=== PATIENT | female | born 1995 | race Caucasian/White ===

== ENCOUNTER → 2020-12-22 14:22 | Outpatient (BNVA) | payer SELFPAY | PROVIDERS: Family Provider Family Medicine; Visit Provider Nurse Practitioner | DX: Z20.2 Contact with and (suspected) exposure to infections with a predominantly sexual mode of transmission (principal) | CPT/HCPCS: 87491; 87591 ==

== ENCOUNTER 2021-07-21 16:57 | Emergency (ER) | payer MEDICAID, SELFPAY ==
[2021-07-21 17:05] VITALS: BP 100/65; PULSE 96; RESP 16; TEMP 36.4; O2SAT 94; BMI 34.1
--- NOTE | 2021-07-21 17:15 | ED_ITS ---
HPI - General Adult General: Chief complaint: General Medical Stated complaint: cough, runny nose, chest discomfort , sob Time Seen by Provider: 07/21/21 17:14 History of Present Illness: Ms. Diaz is a 26-year-old with history of tobaccoism who is currently with estimated LMP mid May who presents to the emergency department due to sore throat and respiratory symptoms. She endorses symptom onset approximately 1 week ago. She has initially stopped nasal congestion however now has purulent green drainage and sinus pressure. Yesterday she had sore throat which is moderate in intensity. No difficulty swallowing or difficulty tolerating oral secretions. Intensity symptoms is moderate. Course has worsened. Does have a history of frequent strep throat with season changes. No other specific changes in health, exacerbating, or alleviating factors identified.. Regarding her she has an appointment scheduled for outpatient initial OB visit. Onset (ago): week(s) Severity: moderate Review of Systems General: Reports: 10 or more systems reviewed and unremarkable except in HPI and below ENMT: Denies: uvular edema PFSH ED PFSH: Medical History No significant past medical history Social History Smoking and tobacco status: current every day smoker Female Reproductive History: Date of last menstrual period: 06/02/21 Physical Exam Const: COMMON NORMALS: alert GENERAL APPEARANCE: cooperative and well developed HENMT: COMMON NORMALS: normocephalic and atraumatic HEAD & SCALP: normocephalic and atraumatic THROAT: uvula midline, abnormal tonsil bilateral hypertrophy 2+ and posterior oropharynx abnormal erythema; no uvular edema Eye: COMMON NORMALS: conjunctivae normal CONJUNCTIVA: Yes conjunctivae normal SCLERA: sclerae normal Neck/C-Spine: COMMON NORMALS: supple GENERAL: Yes trachea midline Resp: COMMON NORMALS: normal respiratory effort and clear to auscultation michel aterally EFFORT & INSPECTION: Yes able to speak in complete sentences AUSCULTATION: clear to auscultation bilaterally Cardio: COMMON NORMALS: regular rate and regular rhythm RATE: regular rate RHYTHM: regular rhythm GI: COMMON NORMALS: Soft to palpation PALPATION: Yes Soft to palpation and No Tenderness to palpation present (GI) PERCUSSION: normal to percussion Extremity: GENERAL: Yes normal exam except as noted and No edema Neuro: COMMON NORMALS: moves all extremities SENSORIUM/ORIENTATION: Yes alert and No Orientation impaired Psych: COMMON NORMALS: mental status grossly normal and Normal thought process present THOUGHT PROCESS: Normal thought process present Course ED course: - Patient was seen and evaluated by me at bedside -Vital signs obtained - Initial evaluation notable for exam as above, posterior pharynx erythema and tonsillar hypertrophy without other significant abnormality. No evidence of BANKRUPTCY LEGAL ASSISTANT or his tonsils. Patient tolerated oral secretions well and no evidence of airway compromise - Labs personally interpreted by me - Labs notable for negative rapid strep - Upon serial reexamination after treatment the patient was similar - Based on patient history, evaluation, and testing as interpreted the most likely cause of the patient's condition is sinusitis, given duration of symptoms consideration for bacterial. - The results of ED evaluation were discussed with the patient including prescriptions and/or symptomatic cares (if applicable) including appropriate and responsible use, followup plan, and return precautions. The patient verbalized understanding and felt safe for discharge. - Patient discharged in satisfactory condition. Note: Click bubbles or prepopulated meneses in note writing are used for assistance with data collection and billing and are inherently more limited than narrative and other text portions of this note. Please use narrative for additional clinical history and defer to narrative/free test for any case of contradictory information. If information appears in only free text or click bubble it should be considered present or absent as reported. Please contact note greeting card writer for clarifications of clinical information or contradictory information. MDM is a brief summary, contradictory or erroneous seeming information should be clarified and full note should be reviewed. Vital Signs: Vital signs: Vital Signs Temperature 97.6 F 07/21/21 17:05 Pulse Rate 76 07/21/21 18:45 Respiratory Rate 16 07/21/21 18:45 Blood Pressure 106/67 07/21/21 18:45 Pulse Oximetry 95 07/21/21 18:45 MDM - General Adult Medical Decision Making 26-year-old lady presenting with upper respiratory symptoms. Patient is nontoxic in appearance. Satisfactory for outpatient management. Medical Records I reviewed the patient's medical records. Lab Data I reviewed the patient's lab results. Laboratory Results Group A Strep Rapid Negative (Negative) 07/21/21 18:15 Discharge Plan Discharge Patient Disposition: Home Clinical Impression: Acute bacterial sinusitis Condition: Stable Prescriptions: New amoxicillin-pot clavulanate 875-125 mg tablet 1 tab PO BID Qty: 14 0RF No Action ceftriaxone 500 mg recon soln 500 mg IM ONCE Qty: 1 0RF doxycycline hyclate 100 mg capsule 100 mg PO BID 10 Days Qty: 20 0RF Discharge Orders: Discharge ED (Routine); Ordered 07/21/21 Ordered By: Reid Rajput Discharge Diet: Usual diet Discharge Activity: Increase activity as tolerated Patient Instructions: Sinusitis (ED) Activity Restrictions/Additional Instructions: Thank you for visiting the emergency department. You were seen and evaluated for likely sinusitis. You will be given a prescription for antibiotics. Please follow-up with your primary care provider and attend your appointment for initial obstetrics. Return to the emergency department for anything that you are concerned about a feel needs emergency department evaluation. Coding Level of Care Code ED Bulk Intake Worker for Brett Soto Exam Comprehensive
[2021-07-21 18:26] VITALS: BP 106/67; PULSE 74; RESP 16; O2SAT 95
[2021-07-21 18:30] LABS: Rapid Strep A Test Negative (Negative)
[2021-07-21 18:45] VITALS: BP 106/67; PULSE 76; RESP 16; O2SAT 95
== END 2021-07-21 18:46 | disposition home or self-care (01) ==
PROVIDERS: Emergency Provider Emergency Medicine
DX: J01.90 Acute sinusitis, unspecified (principal); B96.89 Other specified bacterial agents as the cause of diseases classified elsewhere; J02.9 Acute pharyngitis, unspecified; F17.200 Nicotine dependence, unspecified, uncomplicated
CPT/HCPCS: 87081; 87880; 99282

== ENCOUNTER 2021-08-03 12:48 | Outpatient (CLI) | payer MEDICAID, SELFPAY ==
--- NOTE | 2021-08-03 13:01 | US_ITS ---
WS: [id number] EARLY OBSTETRICAL ULTRASOUND (<14 WEEKS). HISTORY: SUPERVISION NORMAL , 1ST TRIMESTER COMPARISON: None available. Single intrauterine gestational sac is identified. Cardiac activity at 157 BPM. Pentress-rump length chiara sures 1.3 cm which corresponds to a gestation of 7w3d. Normal-appearing yolk sac and amnion demonstra clive. No subchorionic hemorrhage. No free fluid. Neither ovary identified. No free fluid. US/US OB <=14 wk fetus w transvag IMPRESSION: 1. Single intrauterine gestation of 7 weeks 3 days with an EDC of 03/19/2022. 2. Normal cardiac activity.
== END 2021-08-03 12:49 | disposition home or self-care (01) ==
PROVIDERS: PCP Family Medicine; Visit Provider Family Medicine
DX: Z34.91 Encounter for supervision of normal pregnancy, unspecified, first trimester (principal)
CPT/HCPCS: 76801; 76817

== ENCOUNTER 2021-08-15 20:02 | Emergency (ER) | payer MEDICAID, SELFPAY ==
[2021-08-15 20:20] VITALS: BP 95/66; PULSE 83; RESP 18; TEMP 37.1; O2SAT 98; BMI 34.1
--- NOTE | 2021-08-15 21:09 | ED_ITS ---
Documented by User: Surya Huff MD 08/15/21 22:56 HPI - Abdominal Pain General: Chief Complaint: Abdominal Pain Stated Complaint: abd pain 9 weekd Time Seen by Provider: 08/15/21 21:03 History of Present Illness: 26-year-old G2, P1 at 9 weeks gestation presents due to abdominal pain. States this started earlier today. Describes diffuse a bdominal achiness and cramping. Denies any pelvic discharge or bleeding. Denies dysuria. Denies nausea vomiting diarrhea constipation. Reports earlier she had a mild headache but this is now gone away. Denies any loss of consciousness. Denies any neck pain fever or rash. Denies any focal weakness numbness or tingling. Related Data: Date of Last Menstrual Period: 06/02/21 Review of Systems Narrative: - CONSTITUTIONAL: Denies weight loss, fever and chills. - HEENT: Denies changes in vision and hearing. - RESPIRATORY: Denies SOB and cough. - CV: Denies palpitations and CP. - GI: As above - : Denies dysuria and urinary frequency. - MSK: Denies myalgia and joint pain. - SKIN: Denies rash and pruritus. - NEUROLOGICAL: As above - PSYCHIATRIC: Denies suicidal ideation PFSH ED PFSH: Medical History No significant past medical history Social History Smoking and tobacco status: current every day smoker Female Reproductive History: Date of last menstrual period: 06/02/21 Physical Exam Narrative: EXAM NARRATIVE: - GENERAL: Alert and oriented x 3. No acute distress. Well-nourished. - EYES: EOMI. Anicteric. - HENT: Atraumatic, no C-spine tenderness. Moist mucous membranes. No scleral icterus. No cervical lymphadenopathy. - LUNGS: Clear to auscultation bilaterally. No accessory muscle use. Equal lung sounds bilaterally. No respiratory distress. - CARDIOVASCULAR: Regular rate and rhythm. No murmur. No JVD. - ABDOMEN: Soft, no appreciable tenderness and non-distended. Negative CVA tenderness bilaterally, no rebound or guarding, negative Wong sign. No palpable masses. - EXTREMITIES: No edema. Non-tender. - SKIN: No rashes or lesions. Warm. - NEUROLOGIC: GCS 15. No meningismus or focal neurological deficits. CN II-XII grossly intact. - PSYCHIATRIC: Cooperative. Appropriate mood and affect. Course Vital Signs: Vital signs: Vital Signs Temperature 98.8 F 08/15/21 20:20 Pulse Rate 83 08/15/21 20:20 Respiratory Rate 18 08/15/21 20:20 Blood Pressure 95/66 08/15/21 20:20 Pulse Oximetry 98 08/15/21 20:20 MDM - Abdominal Pain Medical Decision Making 26-year-old at 9 weeks gestation presents due to abdominal pain. Does complain that she had a headache earlier today but is now resolved. She does not have any meningismus or focal neurologic findings. This would be very early in to be caused by preeclampsia. She has not had seizures. This time do not believe advanced imaging is required. Lab work is unremarkable except for urinalysis with many squamous cells +2 bacteria. Prescription for Keflex provided. Patient is Rh+ and therefore no RhoGAM is required. Ultrasound is c urrently pending. Patient signed out to Dr. Garcia. Lab Data : 08/15/21 21:12 08/15/21 21:12 Labs/Radiology: Radiology Impressions Ultrasound 08/15/21 21:09 IMPRESSION: 1. Single live intrauterine gestation. 2. No acute abnormality. 3. biometry relatively concordant reported LMP. Laboratory Results WBC 5.9 10^3/uL (4.0-10.0) 08/15/21 21:12 RBC 4.50 10^6/uL (4.1-5.3) 08/15/21 21:12 Hgb 13.3 g/dL (11.5-15.3) 08/15/21 21:12 Hct 38.5 % (37.0-47.0) 08/15/21 21:12 MCV 85.6 fl (81-99) 08/15/21 21:12 MCH 29.6 pg (28.0-34.0) 08/15/21 21:12 MCHC 34.5 g/dL (30.0-36.0) 08/15/21 21:12 RDW 12.4 % (12.1-15.1) 08/15/21 21:12 Plt Count 205 10^3/cmm (130-400) 08/15/21 21:12 MPV 10.1 fL (7.4-10.4) 08/15/21 21:12 Neut % (Auto) 85.4 % 08/15/21 21:12 Lymph % (Auto) 7.1 % 08/15/21 21:12 [place] % (Auto) 6.3 % 08/15/21 21:12 Eos % (Auto) 0.7 % 08/15/21 21:12 Baso % (Auto) 0.3 % 08/15/21 21:12 Neut # (Auto) 5.04 10^3/uL (1.8-7.7) 08/15/21 21:12 Lymph # (Auto) 0.4 10^3/uL (0.8-4.8) L 08/15/21 21:12 [place] # (Auto) 0.4 10^3/uL (0.2-0.9) 08/15/21 21:12 Eos # (Auto) 0.0 10^3/uL (0.0-0.8) 08/15/21 21:12 Baso # (Auto) 0.0 10^3/uL (0.0-0.1) 08/15/21 21:12 Nucleated RBC % (auto) 0 % 08/15/21 21:12 Nucleated RBCs # 0.0 /100WBC 08/15/21 21:12 Sodium 134 mmol/L (136-145) L 08/15/21 21:12 Potassium 3.8 mmol/L (3.5-5.1) 08/15/21 21:12 Chloride 101 mmol/L (98-107) 08/15/21 21:12 Carbon Dioxide 20 mmol/L (22-29) L 08/15/21 21:12 Anion Gap 16.8 (5-19) 08/15/21 21:12 BUN 11 mg/dL (6-20) 08/15/21 21:12 Creatinine 0.4 mg/dL (0.5-0.9) L 08/15/21 21:12 GFR Calculation 196.1 mL/min (90-130) H 08/15/21 21:12 Glucose 89 mg/dL (65-115) 08/15/21 21:12 Calculated Osmolality 277 mOsm/kg (285-295) L 08/15/21 21:12 Calcium 9.2 mg/dL (8.5-10.5) 08/15/21 21:12 Total Bilirubin 0.2 mg/dL (0.15-1.2) 08/15/21 21:12 AST 16 U/L (0-32) 08/15/21 21:12 ALT 12 U/L (0-33) 08/15/21 21:12 Alkaline Phosphatase 62 IU/L (35-105) 08/15/21 21:12 Total Protein 7.5 g/dL (6.6-8.7) 08/15/21 21:12 Albumin 4.3 g/dL (3.5-5.2) 08/15/21 21:12 Globulin 3.2 g/dL (1.3-4.6) 08/15/21 21:12 Lipase 20 U/L (13-60) 08/15/21 21:12 Ser , Semi-Qnt 57441.00 mIU/mL 08/15/21 21:12 Urine Color Yellow (Yellow) 08/15/21 22:15 Urine Appearance Turbid (CLEAR) 08/15/21 22:15 Urine pH 5 (5-7) 08/15/21 22:15 Ur Specific Nelson 1.030 (1.005-1.030) 08/15/21 22:15 Urine Protein Neg (Negative) 08/15/21 22:15 Urine Glucose (UA) Norm (Normal) 08/15/21 22:15 Urine Ketones Negative (Negative) 08/15/21 22:15 Urine Blood Neg (Negative) 08/15/21 22:15 Urine Nitrate Negative (Negative) 08/15/21 22:15 Urine Bilirubin Neg (Negative) 08/15/21 22:15 Urine Urobilinogen Norm mg/dL (Negative) 08/15/21 22:15 Ur Leukocyte Esterase Negative (Negative) 08/15/21 22:15 Urine RBC 0-4 /hpf (0-2) H 08/15/21 22:15 Urine WBC 0-4 /hpf (0-5) H 08/15/21 22:15 Ur Squamous Epith Cells 55-80 /hpf (0-5) H 08/15/21 22:15 Amorphous Sediment Not Reportable 08/15/21 22:15 Urine Bacteria 2+ /hpf (NONE) H 08/15/21 22:15 Urine Mucus 2+ /hpf 08/15/21 22:15 Rho(D) Type Positive 08/15/21 21:12 Discharge Plan Discharge Patient Disposition: Home Clinical Impression: Abdominal pain affecting , UTI (urinary tract infection) Condition: Stable Prescriptions: New cephalexin 500 mg tablet 500 mg PO BID 7 Days Qty: 14 0RF No Action ceftriaxone 500 mg recon soln 500 mg IM ONCE Qty: 1 0RF doxycycline hyclate 100 mg capsule 100 mg PO BID 10 Days Qty: 20 0RF amoxicillin-pot clavulanate 875-125 mg tablet 1 tab PO BID Qty: 14 0RF Discharge Orders: Discharge ED (Routine); Ordered 08/15/21 Ordered By: Surya Huff Referrals: Monica Campo DO [Primary Care Provider] - 1-3 days Discharge Diet: Advance as tolerated Discharge Activity: Resume usual activity Patient Instructions: Urinary Tract Infection in Women (ED), Abdominal Pain (ED) Coding Level of Care Code ED Fiber Designer for Chg Fwd Documented by User: Nicolas Vogel MD 08/15/21 23:05 HPI - Abdominal Pain General: Chief Complaint: Abdominal Pain Stated Complaint: abd pain 9 weekd Time Seen by Provider: 08/15/21 21:03 [facility] ED PFSH: Medical History No significant past medical history Social History Smoking and tobacco status: current every day smoker Course Vital Signs: Vital signs: Vital Signs Temperature 98.8 F 08/15/21 20:20 Pulse Rate 83 08/15/21 20:20 Respiratory Rate 18 08/15/21 20:20 Blood Pressure 95/66 08/15/21 20:20 Pulse Oximetry 98 08/15/21 20:20 MDM - Abdominal Pain Medical Decision Making 26-year-old at 9 weeks gestation presents due to abdominal pain. Does complain that she had a headache earlier today but is now resolved. She does not have any meningismus or focal neurologic findings. This would be very early in to be caused by preeclampsia. She has not had seizures. This time do not believe advanced imaging is required. Lab work is unremarkable except for urinalysis with many squamous cells +2 bacteria. Prescription for Keflex provided. Patient is Rh+ and therefore no RhoGAM is required. Ultrasound is currently pending. Patient signed out to Dr. Vogel. Patient's ultrasound here shows no acute abnormalities we will treat for UTI she is to follow-up with ob and return if worsening Lab Data : 08/15/21 21:12 08/15/21 21:12 Labs/Radiology: Radiology Impressions Ultrasound 08/15/21 21:09 IMPRESSION: 1. Single live intrauterine gestation. 2. No acute abnormality. 3. biometry relatively concordant reported LMP. Laboratory Results WBC 5.9 10^3/uL (4.0-10.0) 08/15/21 21:12 RBC 4.50 10^6/uL (4.1-5.3) 08/15/21 21:12 Hgb 13.3 g/dL (11.5-15.3) 08/15/21 21:12 Hct 38.5 % (37.0-47.0) 08/15/21 21:12 MCV 85.6 fl (81-99) 08/15/21 21:12 MCH 29.6 pg (28.0-34.0) 08/15/21 21:12 MCHC 34.5 g/dL (30.0-36.0) 08/15/21 21:12 RDW 12.4 % (12.1-15.1) 08/15/21 21:12 Plt Count 205 10^3/cmm (130-400) 08/15/21 21:12 MPV 10.1 fL (7.4-10.4) 08/15/21 21:12 Neut % (Auto) 85.4 % 08/15/21 21:12 Lymph % (Auto) 7.1 % 08/15/21 21:12 [place] % (Auto) 6.3 % 08/15/21 21:12 Eos % (Auto) 0.7 % 08/15/21 21:12 Baso % (Auto) 0.3 % 08/15/21 21:12 Neut # (Auto) 5.04 10^3/uL (1.8-7.7) 08/15/21 21:12 Lymph # (Auto) 0.4 10^3/uL (0.8-4.8) L 08/15/21 21:12 [place] # (Auto) 0.4 10^3/uL (0.2-0.9) 08/15/21 21:12 Eos # (Auto) 0.0 10^3/uL (0.0-0.8) 08/15/21 21:12 Baso # (Auto) 0.0 10^3/uL (0.0-0.1) 08/15/21 21:12 Nucleated RBC % (auto) 0 % 08/15/21 21:12 Nucleated RBCs # 0.0 /100WBC 08/15/21 21:12 Sodium 134 mmol/L (136-145) L 08/15/21 21:12 Potassium 3.8 mmol/L (3.5-5.1) 08/15/21 21:12 Chloride 101 mmol/L (98-107) 08/15/21 21:12 Carbon Dioxide 20 mmol/L (22-29) L 08/15/21 21:12 Anion Gap 16.8 (5-19) 08/15/21 21:12 BUN 11 mg/dL (6-20) 08/15/21 21:12 Creatinine 0.4 mg/dL (0.5-0.9) L 08/15/21 21:12 GFR Calculation 196.1 mL/min (90-130) H 08/15/21 21:12 Glucose 89 mg/dL (65-115) 08/15/21 21:12 Calculated Osmolality 277 mOsm/kg (285-295) L 08/15/21 21:12 Calcium 9.2 mg/dL (8.5-10.5) 08/15/21 21:12 Total Bilirubin 0.2 mg/dL (0.15-1.2) 08/15/21 21:12 AST 16 U/L (0-32) 08/15/21 21:12 ALT 12 U/L (0-33) 08/15/21 21:12 Alkaline Phosphatase 62 IU/L (35-105) 08/15/21 21:12 Total Protein 7.5 g/dL (6.6-8.7) 08/15/21 21:12 Albumin 4.3 g/dL (3.5-5.2) 08/15/21 21:12 Globulin 3.2 g/dL (1.3-4.6) 08/15/21 21:12 Lipase 20 U/L (13-60) 08/15/21 21:12 Ser , Semi-Qnt 02140.00 mIU/mL 08/15/21 21:12 Urine Color Yellow (Yellow) 08/15/21 22:15 Urine Appearance Turbid (CLEAR) 08/15/21 22:15 Urine pH 5 (5-7) 08/15/21 22:15 Ur Specific Nelson 1.030 (1.005-1.030) 08/15/21 22:15 Urine Protein Neg (Negative) 08/15/21 22:15 Urine Glucose (UA) Norm (Normal) 08/15/21 22:15 Urine Ketones Negative (Negative) 08/15/21 22:15 Urine Blood Neg (Negative) 08/15/21 22:15 Urine Nitrate Negative (Negative) 08/15/21 22:15 Urine Bilirubin Neg (Negative) 08/15/21 22:15 Urine Urobilinogen Norm mg/dL (Negative) 08/15/21 22:15 Ur Leukocyte Esterase Negative (Negative) 08/15/21 22:15 Urine RBC 0-4 /hpf (0-2) H 08/15/21 22:15 Urine WBC 0-4 /hpf (0-5) H 08/15/21 22:15 Ur Squamous Epith Cells 55-80 /hpf (0-5) H 08/15/21 22:15 Amorphous Sediment Not Reportable 08/15/21 22:15 Urine Bacteria 2+ /hpf (NONE) H 08/15/21 22:15 Urine Mucus 2+ /hpf 08/15/21 22:15 Rho(D) Type Positive 08/15/21 21:12 Discharge Plan Discharge Patient Disposition: Home Clinical Impression: Abdominal pain affecting , UTI (urinary tract infection) Condition: Stable Prescriptions: New cephalexin 500 mg tablet 500 mg PO BID 7 Days Qty: 14 0RF No Action ceftriaxone 500 mg recon soln 500 mg IM ONCE Qty: 1 0RF doxycycline hyclate 100 mg capsule 100 mg PO BID 10 Days Qty: 20 0RF amoxicillin-pot clavulanate 875-125 mg tablet 1 tab PO BID Qty: 14 0RF Discharge Orders: Discharge ED (Routine); Ordered 08/15/21 Ordered By: Surya Huff Referrals: Monica Campo DO [Primary Care Provider] - 1-3 days Discharge Diet: Advance as tolerated Discharge Activity: Resume usual activity Patient Instructions: Urinary Tract Infection in Women (ED), Abdominal Pain (ED) Coding Level of Care Code ED Fiber Designer for Brett Soto
--- NOTE | 2021-08-15 21:09 | USR_ITS ---
PROCEDURE INFORMATION: Exam: US First Trimester, Transabdominal and US , Transvaginal Exam date and time: 08/15/2021 9:36 PM Age: 26 years old Clinical indication: complicated by abdominal or pelvic pain; Generalized abdominal pain; First trimester (<14 weeks 0 days); Gestational age or lmp: 9w1d per estalished francisco; ; Patient HX: Generalized abd pain, headache, n+v today. Spotting today, but had pap smear 2 days ago. TECHNIQUE: Imaging protocol: Real-time transabdominal obstetrical ultrasound of the maternal pelvis and a first trimester , less than 14 weeks 0 days, with image documentation. Transvaginal imaging was used for better evaluation of the fetus, adnexa, and/or cervix. COMPARISON: US OB <=14 wk fetus w transvag 08/03/2021 1:08 PM FINDINGS: Gestation: Single live intrauterine gestation. Unremarkable appearance of pole. Unremarkable size and appearance of yolk sac. Embryonic/ heart rate: heart rate 167 beats minute. Extra-embryonic membranes/Placenta: Negative for subchorionic hemorrhage. Amniotic fluid: Subjectively adequate amniotic volume. BIOMETRY: Gestational age (AUA): Estimated gestational age based on biometry 9 weeks, 2 days. Estimated gestational age based on reported LMP 9 weeks, 1 day. Cleona-Rump length (CRL): pole crown-rump length measures 2.56 cm. MATERNAL: Uterus: Small uterine fundal subserosal fibroid measures 2.4 cm x 2 cm x 1 point cm. Endometrial thickness 20 mm. Cervix: Unremarkable. Right ovary/adnexa: Unremarkable ovary. Left ovary/adnexa: Unremarkable ovary. Intraperitoneal space: No intraperitoneal free fluid. US/US OB <= 14 weeks fetus [id number] IMPRESSION: 1. Single live intrauterine gestation. 2. No acute abnormality. 3. biometry relatively concordant reported LMP.
[2021-08-15 21:20] LABS: Basophils % 0.3 %; Eosinophils % 0.7 %; Hematocrit 38.5 % (37.0-47.0); Hemoglobin 13.3 g/dL (11.5-15.3); Lymphocytes # 0.4 10^3/uL (0.8-4.8); Lymphocytes % 7.1 %; Mean Corpuscular HGB Conc 34.5 g/dL (30.0-36.0); Mean Corpuscular Hemoglobin 29.6 pg (28.0-34.0); Mean Corpuscular Volume 85.6 fl (81-99); Mean Platelet Volume 10.1 fL (7.4-10.4); Monocytes # 0.4 10^3/uL (0.2-0.9); Monocytes % 6.3 %; Neutrophils # 5.04 10^3/uL (1.8-7.7); Neutrophils % 85.4 %; Nucleated Red Blood Cells % 0 %; Platelet Count 205 10^3/cmm (130-400); Red Cell Distribution Width 12.4 % (12.1-15.1); White Blood Count 5.9 10^3/uL (4.0-10.0)
[2021-08-15] MEDS: acetaminophen 500 mg Tablet PO (21:42)
[2021-08-15 21:51] LABS: Lipase 20 U/L (13-60)
[2021-08-15 21:52] LABS: Alanine Aminotransferase 12 U/L (0-33); Albumin Level 4.3 g/dL (3.5-5.2); Alkaline Phosphatase 62 IU/L (35-105); Anion Gap 16.8 (5-19); Aspartate Amino Transferase 16 U/L (0-32); Blood Urea Nitrogen 11 mg/dL (6-20); Calcium 9.2 mg/dL (8.5-10.5); Carbon Dioxide 20 mmol/L (22-29); Chloride 101 mmol/L (98-107); Globulin 3.2 g/dL (1.3-4.6); Glomerular Filtration Rate 196.1 mL/min (90-130); Glucose 89 mg/dL (65-115); Osmolality Calculated 277 mOsm/kg (285-295); Potassium 3.8 mmol/L (3.5-5.1); Sodium 134 mmol/L (136-145); Total Bilirubin 0.2 mg/dL (0.15-1.2); Total Protein 7.5 g/dL (6.6-8.7)
[2021-08-15 22:31] LABS: Add Urine Culture? No; Bacteria Urine 2+ /hpf; Bilirubin Urine Neg (Negative); Blood Urine Neg (Negative); Glucose Urine UA Norm (Normal); Ketones Urine Negative (Negative); Leukocyte Esterase Urine Negative (Negative); Mucus Urine 2+ /hpf; Nitrate Urine Negative (Negative); Protein Urine Neg (Negative); RBC Urine 0-4 /hpf (0-2); Squamous Epithelial Cell Urine 55-80 /hpf (0-5); Urine Appearance Turbid (CLEAR); Urine Color Yellow (Yellow); Urobilinogen Urine Norm (Negative); WBC Urine 0-4 /hpf (0-5); pH Urine 5 (5-7)
[2021-08-15 23:25] VITALS: BP 132/78; PULSE 88; RESP 18; O2SAT 98
== END 2021-08-15 23:26 | disposition home or self-care (01) ==
PROVIDERS: Emergency Medicine; Emergency Provider Emergency Medicine; PCP Family Medicine
DX: O23.41 Unspecified infection of urinary tract in pregnancy, first trimester (principal); N39.0 Urinary tract infection, site not specified; O26.891 Other specified pregnancy related conditions, first trimester; R10.9 Unspecified abdominal pain; O99.331 Smoking (tobacco) complicating pregnancy, first trimester; F17.210 Nicotine dependence, cigarettes, uncomplicated; Z3A.09 9 weeks gestation of pregnancy
CPT/HCPCS: 76801; 80053; 81001; 83690; 84702; 85025; 99283

== ENCOUNTER 2021-11-04 12:48 | Outpatient (CLI) | payer MEDICAID, SELFPAY ==
[2021-11-04] VITALS (8 sets, daily range): BP systolic 102–132; BP diastolic 56–72; PULSE 68–81; RESP 14; TEMP 35.8–36; BMI 36.4
[2021-11-04] MEDS: ondansetron 4 MG Tablet PO (13:37)
== END 2021-11-04 14:26 | disposition home or self-care (01) ==
LOC: OPOB 12:49 → OBGYN 12:50
PROVIDERS: PCP Family Medicine; Visit Provider Family Medicine
DX: O26.899 Other specified pregnancy related conditions, unspecified trimester (principal); Z3A.00 Weeks of gestation of pregnancy not specified; R10.9 Unspecified abdominal pain; R23.2 Flushing
CPT/HCPCS: 99211; Q0162

== ENCOUNTER 2021-11-08 17:26 | Outpatient (CLI) | payer MEDICAID, SELFPAY ==
[2021-11-08] VITALS (8 sets, daily range): BP systolic 104–132; BP diastolic 55–88; PULSE 62–72; RESP 17; TEMP 36.1; BMI 33.5
[2021-11-08] MEDS: ondansetron 4 MG Tablet PO (18:26)
[2021-11-08 18:30] LABS: Add Urine Microscopic? NO; Charge for UA Resulting for Rev
[2021-11-08 18:38] LABS: Bilirubin Urine Neg (Negative); Blood Urine Neg (Negative); Glucose Urine UA Norm (Normal); Ketones Urine Negative (Negative); Leukocyte Esterase Urine Negative (Negative); Nitrate Urine Negative (Negative); Protein Urine Neg (Negative); Urine Appearance Clear (CLEAR); Urine Color Yellow (Yellow); Urobilinogen Urine Norm (Negative); pH Urine 6 (5-7)
[2021-11-08 19:08] LABS: Basophils % 0.3 %; Eosinophils # 0.1 10^3/uL (0.0-0.8); Eosinophils % 0.9 %; Hemoglobin 12.1 g/dL (11.5-15.3); Lymphocytes # 1.7 10^3/uL (0.8-4.8); Lymphocytes % 22.5 %; Mean Corpuscular HGB Conc 33.6 g/dL (30.0-36.0); Mean Corpuscular Hemoglobin 30.5 pg (28.0-34.0); Mean Corpuscular Volume 90.7 fl (81-99); Mean Platelet Volume 10.4 fL (7.4-10.4); Monocytes # 0.4 10^3/uL (0.2-0.9); Monocytes % 5.3 %; Neutrophils # 5.36 10^3/uL (1.8-7.7); Neutrophils % 70.7 %; Nucleated Red Blood Cells % 0 %; Platelet Count 200 10^3/cmm (130-400); Red Blood Count 3.97 10^6/uL (4.1-5.3); Red Cell Distribution Width 12.8 % (12.1-15.1); White Blood Count 7.6 10^3/uL (4.0-10.0)
[2021-11-08 19:21] LABS: Alanine Aminotransferase 7 U/L (0-33); Albumin Level 3.7 g/dL (3.5-5.2); Alkaline Phosphatase 54 U/L (35-105); Anion Gap 13.7 (5-19); Aspartate Amino Transferase 13 U/L (0-32); Blood Urea Nitrogen 5 mg/dL (6-20); Carbon Dioxide 23 mmol/L (22-29); Chloride 103 mmol/L (98-107); Globulin 2.7 g/dL (1.3-4.6); Glomerular Filtration Rate 196.1 mL/min (90-130); Glucose 85 mg/dL (65-115); Osmolality Calculated 279 mOsm/kg (285-295); Potassium 3.7 mmol/L (3.5-5.1); Sodium 136 mmol/L (136-145); Total Bilirubin 0.2 mg/dL (0.15-1.2); Total Protein 6.4 g/dL (6.6-8.7)
== END 2021-11-08 20:35 | disposition home or self-care (01) ==
LOC: OPOB 17:27 → OBGYN 17:27
PROVIDERS: PCP Family Medicine; Visit Provider Family Medicine
DX: O26.899 Other specified pregnancy related conditions, unspecified trimester (principal); Z3A.00 Weeks of gestation of pregnancy not specified; R42 Dizziness and giddiness
CPT/HCPCS: 36415; 80053; 81003; 85025; 99211; Q0162

== ENCOUNTER 2021-11-23 15:56 | Outpatient (CLI) | payer MEDICAID, SELFPAY ==
--- NOTE | 2021-11-23 | US_ITS ---
WS: [id number] OBSTETRICAL ULTRASOUND COMPLETE HISTORY: ANATOMY CHECK COMPARISON: 08/15/2021 and 08/03/2021 Single intrauterine gestation in variable but vertex presentation at the end of the examination. Cervix is Closed and normal length. Cervical length is 3.9 cm. Normal amount of amniotic fluid surrounds the fetus. Placenta: Posterior, no previa or abruption. Placenta grade 1 Heart: 141 BPM. Four chambers are identified. RIGHT and LEFT outflow tracts are unremarkable. Anatomy: Intracranial structures and spine are normal. kidneys, stomach and urinary bladd er are unremarkable. Abdominal wall, three-vessel cord and cord insertion site are normal. 4 extremities are present. profile: Unremarkable. Gender: Male. measurements: BPD = 6.0 cm = 24w2d HC = 22.9 cm = 24w6d AC = 19.5 cm = 24w1d FL = 4.4 cm = 24w4d EFW: 692 g. Biometry is internally concordant. Appropriate growth since the prior ultrasound. AGA by ultrasound: 24w6d GILBERT by ultrasound: 03/09/2022 US/US OB >= 14 weeks fetus [id number] IMPRESSION: 1. Single intrauterine gestation of 24w6d with an GILBERT of 03/09/2022. 2. Unremarkable screening survey of anatomy.
== END 2021-11-23 15:57 | disposition home or self-care (01) ==
LOC: RAD 15:57
PROVIDERS: PCP Family Medicine; Visit Provider Family Medicine
DX: Z34.82 Encounter for supervision of other normal pregnancy, second trimester (principal); Z3A.24 24 weeks gestation of pregnancy
CPT/HCPCS: 76805

== ENCOUNTER → 2021-12-26 10:11 | Outpatient (BNVA) | payer MEDICAID, SELFPAY | PROVIDERS: PCP Family Medicine; Visit Provider Family Medicine Adult Medicine | DX: J02.9 Acute pharyngitis, unspecified (principal); J06.9 Acute upper respiratory infection, unspecified | CPT/HCPCS: 87071; 87880 ==

== ENCOUNTER 2022-01-19 11:40 | Outpatient (CLI) | payer MEDICAID, SELFPAY ==
[2022-01-19] VITALS (8 sets, daily range): BP systolic 98–119; BP diastolic 54–69; PULSE 68–88; RESP 15; TEMP 35.7; BMI 37.9
[2022-01-19 13:23] LABS: Add Urine Culture? No; Bacteria Urine TRACE /hpf; Bilirubin Urine Neg (Negative); Blood Urine 2+ (Negative); Glucose Urine UA Norm (Normal); Ketones Urine Negative (Negative); Leukocyte Esterase Urine Negative (Negative); Nitrate Urine Negative (Negative); Protein Urine Neg (Negative); Urine Appearance Clear (CLEAR); Urine Color Yellow (Yellow); Urobilinogen Urine Norm (Negative); WBC Urine 0-4 /hpf (0-5); pH Urine 8 (5-7)
== END 2022-01-19 13:51 | disposition home or self-care (01) ==
LOC: OPOB 11:51 → OBGYN 11:52
PROVIDERS: PCP Family Medicine; Visit Provider Family Medicine
DX: O26.899 Other specified pregnancy related conditions, unspecified trimester (principal); Z3A.00 Weeks of gestation of pregnancy not specified; N89.8 Other specified noninflammatory disorders of vagina
CPT/HCPCS: 59025; 81001; 99211

== ENCOUNTER 2022-01-24 15:30 | Outpatient (CLI) | payer MEDICAID, SELFPAY ==
[2022-01-24 15:33] VITALS: BMI 36.6
[2022-01-24 16:11] VITALS: BP 117/70; PULSE 80; TEMP 36.7
[2022-01-24 17:03] LABS: Bacteria Urine 2+ /hpf; Bilirubin Urine Neg (Negative); Blood Urine Neg (Negative); Calcium Oxalate Crystals Urine 0-4 /hpf; Glucose Urine UA Norm (Normal); Ketones Urine 1+ (Negative); Leukocyte Esterase Urine Trace (Negative); Mucus Urine 1+ /hpf; Nitrate Urine Negative (Negative); Protein Urine Neg (Negative); RBC Urine 0-4 /hpf (0-2); Urine Appearance Hazy (CLEAR); Urine Color Amber (Yellow); Urobilinogen Urine Neg (Negative); WBC Urine 0-4 /hpf (0-5); pH Urine 6 (5-7)
[2022-01-24 17:04] LABS: Add Urine Culture? No; Amorphous Sediment Urine 1+ /hpf
--- NOTE | 2022-01-24 17:37 | USR_ITS ---
PROCEDURE INFORMATION: Exam: US , Limited Exam date and time: 01/24/2022 6:14 PM Age: 26 years old Clinical indication: Lmp or gestational age (in weeks): 32w 3d; Antepartum complications; Other: Pre-term labor. No vaginal bleeding, no leakage of fluid; ; Patient HX: Cervical length check, contractions LABS AND CLINICAL REPORTS: Last menstrual period start date: 10/12/2021 Gestational age (Established): 32 w 3 d Estimated due date (Established): 03/19/2022 TECHNIQUE: Imaging protocol: Real-time ultrasound of the maternal uterus with image documentation. Exam focused on the clinical indication. COMPARISON: US OB >= 14 weeks fetus [id number] 11/23/2021 4:08 PM FINDINGS: Gestation: Intrauterine gestation. heart rate: 129 bpm presentation: Cephalic Placenta: Lolita lgrade 2 placenta. Amniotic fluid: Amniotic fluid volume is normal. Amniotic fluid index: ANTIONE is 19.9 cm. MATERNAL: Cervix: Cervical length measures 5.1 cm. US/US OB limited [id number] IMPRESSION: 1. Single live intrauterine fetus. 2. Cervix is closed and in normal length measuring 5.1 cm.
== END 2022-01-24 19:00 | disposition home or self-care (01) ==
LOC: OPOB 15:50 → OBGYN 15:54
PROVIDERS: PCP Family Medicine; Visit Provider Family Medicine
DX: O26.899 Other specified pregnancy related conditions, unspecified trimester (principal); Z3A.00 Weeks of gestation of pregnancy not specified; R10.9 Unspecified abdominal pain
CPT/HCPCS: 59025; 76815; 81001; 87086; 99211

== ENCOUNTER 2022-02-05 17:14 | Outpatient (CLI) | payer MEDICAID, SELFPAY ==
[2022-02-05] VITALS (7 sets, daily range): BP systolic 97–117; BP diastolic 53–62; PULSE 67–84; RESP 18; TEMP 36; BMI 37.1
--- NOTE | 2022-02-05 18:10 | USR_ITS ---
PROCEDURE INFORMATION: Exam: US , Limited Exam date and time: 02/05/2022 6:52 PM Age: 26 years old Clinical indication: Lmp or gestational age (in weeks): 35w 0d; Antepartum complications; Other: Pre-term labor; ; Additional info: Cervical length LABS AND CLINICAL REPORTS: Last menstrual period start date: 06/05/2021 Gestational age (Established): 35 w 0 d Estimated due date (Established): 03/12/2022 TECHNIQUE: Imaging protocol: Real-time ultrasound of the maternal uterus with image documentation. Exam focused on the clinical indication. COMPARISON: US OB limited [id number] 01/24/2022 6:14 PM FINDINGS: Gestation: Single viable intrauterine heart rate: 129 bpm presentation: Cephalic Placenta: Posterior and Fundal grade 2 placenta . Amniotic fluid index: ANTIONE is 18.2 cm. BIOMETRY: Estimated due date (AUA): 03/12/2022 MATERNAL: Cervix: Cervical length measures 4.4 cm. US/US OB limited [id number] IMPRESSION: Single viable intrauterine in a cephalic position. No abnormalities detected.
[2022-02-05 18:12] LABS: Urine Appearance Clear (CLEAR); Urine Color Yellow (Yellow); pH Urine 6 (5-7)
[2022-02-05 18:13] LABS: Add Urine Culture? No; Bacteria Urine TRACE /hpf; Bilirubin Urine Neg (Negative); Blood Urine Neg (Negative); Glucose Urine UA Norm (Normal); Ketones Urine Negative (Negative); Leukocyte Esterase Urine Negative (Negative); Nitrate Urine Negative (Negative); Protein Urine Neg (Negative); RBC Urine 0-4 /hpf (0-2); Specific Gravity, Urine 1.025 (1.005-1.030); Urobilinogen Urine Norm (Negative)
== END 2022-02-05 19:30 | disposition home or self-care (01) ==
LOC: OPOB 17:15 → OBGYN 17:17
PROVIDERS: PCP Family Medicine; Visit Provider Family Medicine
DX: O26.893 Other specified pregnancy related conditions, third trimester (principal); Z3A.35 35 weeks gestation of pregnancy; R10.9 Unspecified abdominal pain; M54.9 Dorsalgia, unspecified
CPT/HCPCS: 36415; 59025; 76815; 81001; 99211

== ENCOUNTER 2022-02-06 06:14 | Outpatient (CLI) | payer MEDICAID, SELFPAY ==
--- NOTE | 2022-02-06 | US_ITS ---
WS: [id number] LIMITED OBSTETRICAL ULTRASOUND HISTORY: date discrepancy COMPARISON: 08/03/2021, 08/15/2021, 11/23/2021 Presentation: Cephalic. Cervix: Closed and normal length. Placenta: Posterior, no previa. Grade: 2 HEART: FHR of 131 BPM. measurements: BPD = 9.1 cm = 36w6d; 98th percentile. HC = 33.2 cm = 37w6d; 93rd percentile. AC = 32.7 cm = 36w4d; 97th percentile. FL = 7.3 cm = 37w4d; 98th percentile. ANTIONE: 12.3 cm EFW: 3084 g; greater than the 90th %. AGA by ultrasound: 37w2d GILBERT by ultrasound: 02/25/2022 Fetus is measuring large for gestational age. As determined by the first trimester ultrasound fetus i s measuring approximately 22 days greater than expected. Biometry in the 90th percentile. Estimated f etal weight greater than the 90th percentile. Measurement of the abdomen is suboptimal and may be exaggerating the estimated age. US/[place] [id number] IMPRESSION: 1. Single intrauterine gestation of 37 weeks 2 days with an EDC of 02/25/2022. 2. Fetus measuring greater than 90th percentile for weight. 3. Biometry measurements are all greater than the 93th percentile. 4. Placenta grade 2.
== END 2022-02-06 06:15 | disposition home or self-care (01) ==
LOC: RAD 06:16
PROVIDERS: PCP Family Medicine; Visit Provider Family Medicine
DX: O26.843 Uterine size-date discrepancy, third trimester (principal); Z3A.37 37 weeks gestation of pregnancy
CPT/HCPCS: 76816

== ENCOUNTER 2022-02-12 19:57 | Outpatient (CLI) | payer MEDICAID, SELFPAY ==
[2022-02-05 19:18] VITALS: RESP 18
[2022-02-12 20:26] VITALS: RESP 16; TEMP 36.2; BMI 37.5
[2022-02-12 20:48] VITALS: BP 119/63; PULSE 93
[2022-02-12 21:23] VITALS: BP 116/74; PULSE 90
== END 2022-02-12 21:48 | disposition home or self-care (01) ==
LOC: OPOB 19:58 → OBGYN 19:59
PROVIDERS: PCP Family Medicine; Visit Provider Family Medicine
DX: O26.899 Other specified pregnancy related conditions, unspecified trimester (principal); Z3A.00 Weeks of gestation of pregnancy not specified; M54.9 Dorsalgia, unspecified; R10.9 Unspecified abdominal pain
CPT/HCPCS: 59025; 99211

== ENCOUNTER 2022-03-02 17:30 | Inpatient (IN) | payer MEDICAID, SELFPAY ==
[2022-03-02] VITALS (26 sets, daily range): BP systolic 97–133; BP diastolic 56–83; PULSE 71–93; RESP 18; TEMP 36.3–36.4; BMI 38.7
[2022-03-02 16:58] LABS: Actim Prom Positive
[2022-03-02 17:18] LABS: Add Urine Culture? No; Bilirubin Urine Neg (Negative); Blood Urine Neg (Negative); Glucose Urine UA Norm (Normal); Ketones Urine Negative (Negative); Leukocyte Esterase Urine 1+ (Negative); Mucus Urine 2+ /hpf; Nitrate Urine Negative (Negative); Protein Urine Neg (Negative); Urine Appearance Clear (CLEAR); Urine Color Yellow (Yellow); Urobilinogen Urine Neg (Negative); pH Urine 6.5 (5-7)
--- NOTE | 2022-03-02 17:41 | PM.OBGYHP ---
Providers/Chief Complaint Admitting Physician: Monica Campo DO Primary Care Provider: Monica Campo DO Chief Complaint: Vaginal discharge HPI APPLICATION COUNSELOR History of Present Illness Carol Diaz is a 26 year old female at 37w4d by 7wk US not c/w presenting for LOF since approx 1:30 am. Reports she woke up and her shorts were wet- partner says soaking wet and since then she notices a steady leaking whenever she stands up or moves. Reports it is colorless and odorless. Denies contractions, vaginal bleeding. Reports intermittent cramping. Good movement. care was good and starting in first trimester. care complicated by EFW>90th percentile in 3rd trimester. PMHx gestational diabetes in last - passed 1hr GTT x 2 in this , fasting and post-prandial sugars wnl in 3rd trimester Pap Smear LSIL- plan to repeat Tdap, Influenza vaccine completed. Present Details : 2 Para: 1 Date of Last Menstrual Period: 06/02/21 Calculated Date of Delivery: 03/09/22 Gestational Age Based on Last Menstrual Period: 39 Labs Blood type OB HPI: O (+) positive Rubella: Immune RPR: Negative GBS: Negative HBsAG: Negative Other Lab Information: First trimester H/H 13.2/39.8 UCx normal Hep C ab neg GC/Chlam negative Pap Smear LSIL 3rd trimester H/H 12.7/36.6 Review of Systems Const: Denies: fever(s) or chills Resp: Denies: dyspnea, productive cough or non-productive cough GI: Denies: abdominal pain Medications/Allergies Home Medications Medication Instructions Recorded Confirmed Last Taken Type No Known Home Medications 03/02/22 03/02/22 Unknown History Allergies Allergy/AdvReac Type Severity Reaction Status Date / Time No Known Allergies Allergy Verified 03/02/22 18:45 PFSH APPLICATION COUNSELOR PFSH: Medical History (Updated 03/02/22 @ 19:32 by Monica Campo DO) Anxiety Depression Gestational diabetes No significant past medical history Pharyngitis URI (upper respiratory infection) Social History Smoking and tobacco status: former smoker History History History 2 Term 1 0 Miscarriages/Ectopic 0 Living Children 1 Vitals/I&O/Wt Last Vital Signs Pulse 77 03/02/22 17:16 BP 108/65 03/02/22 17:16 Weight last 48 hrs Weight 240 lb Physical Exam Const: COMMON NORMALS: no acute distress, healthy appearing and alert Resp: COMMON NORMALS: normal respiratory effort, No retractions and clear to auscultation bilaterally Cardio: COMMON NORMALS: regular rate, regular rhythm, S1 normal heart sound present, S2 normal heart sound present and No murmurs present (Cardio) GI: COMMON NORMALS: Soft to palpation : OTHER: SSE: no bleeding, pooling present with positive cough test SVE: 2/50/-3, moderately firm, midposition Extremity: NARRATIVE EXTREMITY EXAM: No LE edema Psych: COMMON NORMALS: mental status grossly normal, cooperative and normal affect Data 03/02/22 18:50 Results OB Ultrasound Available in chart. Significant for 02/06/22 with EFW >90th percentile, 3084g. A&P Assessment and plan (1) PROM (premature rupture of membranes): 26yo at 37w4d presenting with PROM. Positive pooling on exam, positive actim prom. Admit for labor and delivery. Start pitocin intermediate dose. Routine CBC, vitals. Routine EFM and toco. May have epidural as desired when making cervical change. Discussed risks and benefits with patient and significant other- agreeable to continue. (2) Term : Term gestation. course significant for measuring larger than dates with 3rd trimester US with EFW >90th percentile. No definitive dx of macrosomia. WIth proven pelvis and hx delivery >8lb infant prior- continue with plan to anticipate vaginal delivery. Attestations Medical Necessity Statement*: Carol Diaz's hospital stay will require greater than 2 midnights for routine labor and delivery and care. Coding Level of Care Code Acute Code for Chg Fwd Exam Detailed Diagnoses PROM (premature rupture of membranes) O42.90 Term Z34.90
[2022-03-02 19:13] LABS: Basophils % 0.3 %; Eosinophils # 0.1 10^3/uL (0.0-0.8); Eosinophils % 0.8 %; Hematocrit 35.7 % (37.0-47.0); Hemoglobin 11.9 g/dL (11.5-15.3); Lymphocytes # 1.9 10^3/uL (0.8-4.8); Lymphocytes % 17.8 %; Mean Corpuscular HGB Conc 33.3 g/dL (30.0-36.0); Mean Corpuscular Hemoglobin 30.2 pg (28.0-34.0); Mean Corpuscular Volume 90.6 fl (81-99); Mean Platelet Volume 10.3 fL (7.4-10.4); Monocytes # 0.7 10^3/uL (0.2-0.9); Monocytes % 6.8 %; Neutrophils # 7.85 10^3/uL (1.8-7.7); Neutrophils % 73.9 %; Nucleated Red Blood Cells % 0 %; Platelet Count 219 10^3/cmm (130-400); Red Blood Count 3.94 10^6/uL (4.1-5.3); Red Cell Distribution Width 12.8 % (12.1-15.1); White Blood Count 10.6 10^3/uL (4.0-10.0)
[2022-03-02] MEDS: dextrose 5%-lactated ringers 1,000 ML 125 ML IV (19:42)
[2022-03-02] MEDS: oxytocin 30 UNIT/500 ML BAG IV (19:42)
[2022-03-03] VITALS (88 sets, daily range): BP systolic 84–129; BP diastolic 51–88; PULSE 69–113; RESP 16–18; TEMP 36.3–36.7; O2SAT 90–100
[2022-03-03] MEDS: fentaNYL 50 mcg/mL INJ 2mL IVP (00:28)
--- NOTE | 2022-03-03 01:43 | ANES.PREANE2 ---
Pre-Anesthetic Assessment Height/Weight: Height 1.68 m Weight 108.862 kg Temp Pulse Resp BP Pulse Ox O2 Del Method 97.3 F L 99 18 125/85 90 03/02/22 23:24 03/03/22 01:39 03/03/22 00:28 03/03/22 01:38 03/03/22 01:39 03/02/22 20:00 Preop Diagnosis: IUP TRAE Was Beta Cody taken within 24 hours: N/A Was Clonidine taken within 24 hours: N/A Social Tobacco and No alcohol Exam alert, oriented x 3, clear to auscultation bilaterally and regular rate & rhythm Airway Submandibular: within normal limits Cervical ROM: within normal limits Mallampati: Class II Dentition: full History/ROS No significant history except as noted and No significant complaints Pulmonary None reported CV/HEM None reported None reported Hepatic None reported GI None reported Metabolic None reported Musc/skel None reported Neuropsych None reported Anesthetic Plan ASA status: 2 Anesthesia: Anesthesia Evaluation and Regional (specify below) Other: TRAE Risk of > 500 ml blood loss (7ml/kg in children): No Medications/Allergies Home Medications Medication Instructions Recorded Confirmed Last Taken Type No Known Home Medications 03/02/22 03/02/22 Unknown History Allergies Allergy/AdvReac Type Severity Reaction Status Date / Time No Known Allergies Allergy Verified 03/02/22 18:45 Current Medications Generic Name Dose Route Start Last Admin Trade Name Freq PRN Reason Stop Dose Admin Fentanyl 25 - 100 mcg 03/02/22 17:48 03/03/22 00:28 Fentanyl 50 Mcg/Ml Inj 2ml IVP 25 mcg Q1H PRN Administration SEVERE PAIN Dextrose/Lactated Ringer's 1,000 mls @ 125 mls/hr 03/02/22 18:00 03/02/22 19:42 Dextrose 5%-Lactated Ringers IV 125 mls/hr .Q8H ABE Administration Oxytocin 30 unit in 500 mls @ 1 mls/hr 03/02/22 19:15 03/02/22 21:15 Pitocin IV 6 milliunit/min .Q24H ABE 6 mls/hr Titration Protocol 1 MILLIUNIT/MIN PFSH Anesthesia Medical History (Updated 03/02/22 @ 19:32 by Monica Campo DO) Anxiety Depression Gestational diabetes No significant past medical history Pharyngitis URI (upper respiratory infection) Social History Smoking and tobacco status: former smoker Female Reproductive History Date of last menstrual period: 06/02/21 : 2 Data Anesthesia 03/02/22 18:50 Short CBC 03/02/22 Range/Units 18:50 WBC 10.6 H (4.0-10.0) 10^3/uL Hgb 11.9 (11.5-15.3) g/dL Hct 35.7 L (37.0-47.0) % MCV 90.6 (81-99) fl Plt Count 219 (130-400) 10^3/cmm Neut % (Auto) 73.9 % Neut # (Auto) 7.85 H (1.8-7.7) 10^3/uL Urine 03/02/22 Range/Units 16:50 Urine Color Yellow (Yellow) Urine Appearance Clear (CLEAR) Urine pH 6.5 (5-7) Ur Specific [place] 1.020 (1.005-1.030) Urine Protein Neg (Negative) Urine Glucose (UA) Norm (Normal) Urine Ketones Negative (Negative) Urine Nitrate Negative (Negative) Urine Bilirubin Neg (Negative) Ur Leukocyte Esterase 1+ H (Negative) Urine RBC None (0-2) /hpf Urine WBC 5-10 H (0-5) /hpf Cardiac Studies: No Data to Display
--- NOTE | 2022-03-03 01:45 | ANES.PROC ---
Anesthesia Procedures Procedure/Date: 03/03/22 Epidural: Time Out Performed: Yes Consents Signed: Procedure Consent Consent: from patient Lumbar Level: L2-L3 Epidural position: sitting Epidural procedure: sterile prep of area, 1% lidocaine to numb the area, 18 g needle, neg for paresthesia, test dose given, 1.5% xylocaine 1:200k epi (5cc), 0.2% Ropivacaine bolus ml (6cc), placed PCEA (3cm into epid space), no systemic response, sterile dressing applied, L.U.D. no apparent complications and 0.2% Ropiavacaine @ mls/hr (13cc/hour. TERENCE at 9cm. pt coral well)
[2022-03-03] MEDS: ondansetron 2 mg/ML SDV 2 mL 4 MG IVP (03:38)
[2022-03-03] MEDS: dextrose 5%-lactated ringers 1,000 ML 125 ML IV ×2 (04:22→12:16)
--- NOTE | 2022-03-03 08:47 | PM.MISC ---
Miscellaneous Note Note: Call from Nurse saying epidural catheter had become disconnected within the prior 15 minutes. Sterilely cleaned epidural tubing with chloroprep, used sterile scissor to cut tubing, and reconnected new clean cap.
--- NOTE | 2022-03-03 10:58 | PM.DELIVERY ---
Delivery Note: Date of delivery: March 03, 2022 Pre-delivery diagnoses: PROM Term Post-delivery diagnoses: Delivery of viable male Procedure: Spontaneous Vaginal Delivery Delivering Physician: Monica Campo DO Estimated blood loss (mL): 200 Pre-Delivery Course: Patient presented with PROM at approx 0130 on 03/02/22 with clear fluid. Started on pitocin and progressed to complete. Delivery: Patient progressed to complete. Patient placed in lithotomy position. Patient pushed with adequate effort. Head delivered in CHLOÉ position, nuchal cord was present and easily reduced . Shoulders and rest of body delivered without difficulty with epidural anesthesia. Mouth and nares bulb suctioned. Infant placed on maternal abdomen. Cord clamped and cut after 1 minute delay. Placenta spontaneously delivered and intact. Pitocin started. Fundus was noted to be firm and below the umbilicus. The vagina and cervix were inspected and left periurethral laceration with right periurethral abrasion were noted. Fundus was again noted to be firm. Male born at 1033 with 9/9 weighing 3720g and measuring 22 in length Placenta noted to be intact with centrally inserted umbilical cord with 3 vessels. Complications: Maternal none none History History History 2 Term 1 0 Miscarriages/Ectopic 0 Living Children 1 Coding Level of Care Code Acute Code for Chg Fwd
[2022-03-03] MEDS: miSOPROStol 200 mcg Tablet 800 MCG PR (12:15)
[2022-03-03] MEDS: oxytocin 30 UNIT/500 ML BAG 999 UNIT IV (12:16)
[2022-03-03] MEDS: ibuprofen 800 mg tablet PO ×2 (14:09→21:29)
[2022-03-03] MEDS: docusate sodium 100 mg Capsule PO (18:02)
[2022-03-04 01:00] VITALS: BP 120/81; PULSE 82; RESP 18; TEMP 36.7; O2SAT 97
[2022-03-04 01:16] LABS: Hematocrit 29.5 % (37.0-47.0); Hemoglobin 9.6 g/dL (11.5-15.3); Mean Corpuscular HGB Conc 32.5 g/dL (30.0-36.0); Mean Corpuscular Hemoglobin 30.1 pg (28.0-34.0); Mean Corpuscular Volume 92.5 fl (81-99); Mean Platelet Volume 10.3 fL (7.4-10.4); Platelet Count 168 10^3/cmm (130-400); Red Blood Count 3.19 10^6/uL (4.1-5.3); Red Cell Distribution Width 12.9 % (12.1-15.1); White Blood Count 10.6 10^3/uL (4.0-10.0)
[2022-03-04 04:00] VITALS: BP 110/71; PULSE 68; RESP 18; TEMP 36.5; O2SAT 99
--- NOTE | 2022-03-04 07:33 | PM.OBGYPN ---
LICENSING ENGINEER Subjective Subjective: Interval history: Doing well. Ambulating without difficulty. Normal voids. Eating without nausea/vomiting. Reports bleeding is much better than it has been. No clots and similar to amount of a period. Pain is well controlled with scheduled ibuprofen. and having some issues initially with latching, but doing much better overnight. No concerns or questions. Labor: Station: 0 Amniotic Membrane Status: Leaking Monitor Mode: External Contraction Pattern: Regular Status: Category I Vitals/I&O/Wt Last Vital Signs Temp 97.7 F 03/04/22 04:00 Pulse 68 03/04/22 04:00 Resp 18 03/04/22 04:00 BP 110/71 03/04/22 04:00 Pulse Ox 99 03/04/22 04:00 O2 Del Method 03/04/22 04:00 Weight last 48 hrs Weight 240 lb Physical Exam Const: COMMON NORMALS: no acute distress, healthy appearing and alert Resp: COMMON NORMALS: normal respiratory effort, No retractions and clear to auscultation bilaterally AUSCULTATION: clear to auscultation bilaterally Cardio: COMMON NORMALS: regular rate, regular rhythm, S1 normal heart sound present, S2 normal heart sound present and No murmurs present (Cardio) RATE: regular rate RHYTHM: regular rhythm HEART SOUNDS: S1 normal heart sound present and S2 normal heart sound present GI: COMMON NORMALS: Soft to palpation PALPATION: Yes Soft to palpation : OTHER: Uterine fundus is firm and at the umbilicus Extremity: NARRATIVE EXTREMITY EXAM: No LE edema, no calf tenderness Neuro: SENSORIUM/ORIENTATION: Yes alert Psych: COMMON NORMALS: mental status grossly normal, cooperative and normal affect Urinary Catheter Management: Mills: Cath Placed During This Visit: yes Reason for Continuing Indwelling Catheter: Required Immobilization for Trauma or Surgery or Anesthesia Urinary Catheter Date of Insertion: 03/03/22 Urinary Catheter Time of Insertion: 02:40 Data 03/04/22 01:00 A&P Assessment and plan (1) Spontaneous vaginal delivery: 26yo [id number] PPD#1 s/p . Some moderate bleeding after delivery requiring additional dose pitocin and 800mcg cytotec now resolved. Doing well. Routine vitals and care. Encourage ambulation. Regular diet, may shower. Anticipate discharge tomorrow. (2) Prolonged rupture of membranes, greater than 24 hours, delivered: VS have been stable and free of s/sx infection. Continue to monitor with routine vitals. (3) Anemia: PP Hgb <11- started on daily iron supplement Attestations Medical Necessity Statement*: Carol Diaz's hospital stay will require greater than 2 midnights for routine labor and delivery and care. Coding Level of Care Code Acute Code for Chg Fwd Exam Detailed Diagnoses Spontaneous vaginal delivery O80 Prolonged rupture of membranes, greater than 24 hours, delivered O42.10 Anemia D64.9
[2022-03-04] MEDS: prenatal vitamin Capsule 1 CAP PO (08:48)
[2022-03-04] MEDS: docusate sodium 100 mg Capsule PO ×2 (08:48→17:59)
[2022-03-04] MEDS: ibuprofen 800 mg tablet PO ×3 (08:49→21:57)
[2022-03-04] MEDS: ferrous sulfate EC 325 mg Tablet PO (08:49)
[2022-03-04 09:15] VITALS: BP 115/80; PULSE 64; RESP 16; TEMP 36.8
[2022-03-04] MEDS: lanolin oint 7 gm 1 APPLIC TOPICAL (10:00)
[2022-03-04 14:00] VITALS: BP 114/79; PULSE 68; RESP 15; TEMP 36.7
[2022-03-04 22:00] VITALS: BP 123/84; PULSE 68; RESP 15; TEMP 36.8
[2022-03-05 04:00] VITALS: BP 120/82; PULSE 67; RESP 16
[2022-03-05] MEDS: acetaminophen 325 mg Tablet 650 MG PO (07:35)
[2022-03-05] MEDS: ferrous sulfate EC 325 mg Tablet PO (07:35)
--- NOTE | 2022-03-05 07:58 | ANE.PACU2 ---
Inpatient post-anesthesia follow up: Airway intact: Yes Vital signs: Temperature 98.2 F Pulse Rate 67 Respiratory Rate 16 Blood Pressure 120/82 Pulse Oximetry 99 Oxygen Delivery Me thod Room Air Oxygen Flow Rate Fraction of Inspir ed Oxygen Hydration adequate: Yes Nausea and vomiting: No Pain level: 2 Mental status: Baseline
--- NOTE | 2022-03-05 08:07 | PM.OBGYDC ---
Discharge Providers TIRE SERVICE TECHNICIAN Date of Admission: 03/02/22 17:30 Date of Discharge: 03/05/22 Attending Provider at Admission: Monica Campo DO Attending Provider at Discharge: Monica Campo DO Primary Care Provider: Monica Campo DO Diagnoses at Discharge Discharge Diagnosis (1) Spontaneous vaginal delivery: Status: Acute (2) Prolonged rupture of membranes, greater than 24 hours, delivered: Status: Acute (3) Anemia: Status: Acute Reason for Visit Reason for Visit: Vaginal discharge Hospital Course Hospital Course Pre-Delivery Course:?? Patient presented with PROM at approx 0130 on 03/02/22 with clear fluid. Started on pitocin and progressed to complete. Delivery:?? Patient progressed to complete. Patient placed in lithotomy position. Patient pushed with adequate effort. Head delivered in CHLOÉ position, nuchal cord was present and easily reduced . Shoulders and rest of body delivered without difficulty with epidural anesthesia. Mouth and nares bulb suctioned. Infant placed on maternal abdomen. Cord clamped and cut after 1 minute delay. Placenta spontaneously delivered and intact. Pitocin started. Fundus was noted to be firm and below the umbilicus. The vagina and cervix were inspected and left periurethral laceration with right periurethral abrasion were noted. Noted to be hemostatic not requiring repair. Fundus was again noted to be firm. Male born at 1033 with 9/9 weighing 3720g and measuring 22 in length Placenta noted to be intact with centrally inserted umbilical cord with 3 vessels. Complications: Maternal none ? none Patient underwent on 03/03/22 at 1033. course was significant for increased bleeding 1-2 hours - treated with additional dose pitocin and 800mcg cytotec with significant improvement in bleeding. Vaginal bleeding following decreasing and thin lochia. labs Hgb decreased to 9.6 from Following delivery patient ambulated well, tolerated a normal diet without nausea or vomiting. Pain was well controlled on PO medications, initially with some difficulty then improved and supplementing formula, no leg/calf pain, no calf/leg swelling, normal urination, passing gas and normal bowel movements. control was discussed and patient undecided. Follow-up planned for 2 and 6 weeks . Warning signs for endometritis, pre-eclampsia, DVT/PE, mastitis were reviewed, discussed additional warning signs including increased vaginal bleeding, worsening abdominal pain. Pelvic rest and activity precautions reviewed as well. She is discharged on 03/05/22 in stable condition. Information Peripartum Data: Infant Delivery Method: Vaginal Physical Exam Const: COMMON NORMALS: no acute distress, healthy appearing and alert Resp: COMMON NORMALS: normal respiratory effort, No retractions and clear to auscultation bilaterally AUSCULTATION: clear to auscultation bilaterally Cardio: COMMON NORMALS: regular rate, regular rhythm, S1 normal heart sound present, S2 normal heart sound present and No murmurs present (Cardio) RATE: regular rate RHYTHM: regular rhythm HEART SOUNDS: S1 normal heart sound present and S2 normal heart sound present GI: COMMON NORMALS: Soft to palpation PALPATION: Yes Soft to palpation : OTHER: Uterine fundus is firm and below the umbilicus Extremity: NARRATIVE EXTREMITY EXAM: No LE edema, no calf tenderness Neuro: SENSORIUM/ORIENTATION: Yes alert Psych: COMMON NORMALS: mental status grossly normal, cooperative and normal affect Urinary Catheter Management: Mills: Cath Placed During This Visit: yes Reason for Continuing Indwelling Catheter: Required Immobilization for Trauma or Surgery or Anesthesia Urinary Catheter Date of Insertion: 03/03/22 Urinary Catheter Time of Insertion: 02:40 History History History 2 Term 1 0 Miscarriages/Ectopic 0 Living Children 1 Discharge Data Studies Completed and Pending Laboratory Results WBC 10.6 10^3/uL (4.0-10.0) H 03/04/22 01:00 RBC 3.19 10^6/uL (4.1-5.3) L 03/04/22 01:00 Hgb 9.6 g/dL (11.5-15.3) L 03/04/22 01:00 Hct 29.5 % (37.0-47.0) L 03/04/22 01:00 MCV 92.5 fl (81-99) 03/04/22 01:00 MCH 30.1 pg (28.0-34.0) 03/04/22 01:00 MCHC 32.5 g/dL (30.0-36.0) 03/04/22 01:00 RDW 12.9 % (12.1-15.1) 03/04/22 01:00 Plt Count 168 10^3/cmm (130-400) 03/04/22 01:00 MPV 10.3 fL (7.4-10.4) 03/04/22 01:00 Neut % (Auto) 73.9 % 03/02/22 18:50 Lymph % (Auto) 17.8 % 03/02/22 18:50 [place] % (Auto) 6.8 % 03/02/22 18:50 Eos % (Auto) 0.8 % 03/02/22 18:50 Baso % (Auto) 0.3 % 03/02/22 18:50 Neut # (Auto) 7.85 10^3/uL (1.8-7.7) H 03/02/22 18:50 Lymph # (Auto) 1.9 10^3/uL (0.8-4.8) 03/02/22 18:50 [place] # (Auto) 0.7 10^3/uL (0.2-0.9) 03/02/22 18:50 Eos # (Auto) 0.1 10^3/uL (0.0-0.8) 03/02/22 18:50 Baso # (Auto) 0.0 10^3/uL (0.0-0.1) 03/02/22 18:50 Nucleated RBC % (auto) 0 % 03/02/22 18:50 Nucleated RBCs # 0.0 /100WBC 03/02/22 18:50 Insulin-like GF I Positive 03/02/22 16:10 Urine Color Yellow (Yellow) 03/02/22 16:50 Urine Appearance Clear (CLEAR) 03/02/22 16:50 Urine pH 6.5 (5-7) 03/02/22 16:50 Ur Specific [place] 1.020 (1.005-1.030) 03/02/22 16:50 Urine Protein Neg (Negative) 03/02/22 16:50 Urine Glucose (UA) Norm (Normal) 03/02/22 16:50 Urine Ketones Negative (Negative) 03/02/22 16:50 Urine Blood Neg (Negative) 03/02/22 16:50 Urine Nitrate Negative (Negative) 03/02/22 16:50 Urine Bilirubin Neg (Negative) 03/02/22 16:50 Urine Urobilinogen Neg mg/dL (Negative) 03/02/22 16:50 Ur Leukocyte Esterase 1+ (Negative) H 03/02/22 16:50 Urine RBC None /hpf (0-2) 03/02/22 16:50 Urine WBC 5-10 /hpf (0-5) H 03/02/22 16:50 Ur Squamous Epith Cells 10-15 /hpf (0-5) H 03/02/22 16:50 Amorphous Sediment Not Reportable 03/02/22 16:50 Urine Bacteria None /hpf (NONE) 03/02/22 16:50 Urine Mucus 2+ /hpf 03/02/22 16:50 Vitals Last Vital Signs Temp 98.2 F 03/04/22 22:00 Pulse 67 03/05/22 04:00 Resp 16 03/05/22 04:00 BP 120/82 03/05/22 04:00 Pulse Ox 99 03/04/22 04:00 O2 Del Method 03/04/22 14:00 Discharge Plan Discharge Patient Disposition: Home Condition: Stable Prescriptions: New ibuprofen 800 mg Tablet 800 mg PO TID 14 Days Qty: 42 0RF docusate sodium 100 mg Capsule 100 mg PO BID 30 Days Qty: 60 0RF ferrous sulfate 325 mg (65 mg iron) Tablet,Delayed Release (Dr/Ec) 325 mg PO BREAKFAST 90 Days Qty: 90 0RF -U 106.5-1 mg Capsule 1 cap PO DAILY 90 Days Qty: 90 0RF Discharge Orders: Discharge Order (Routine); Ordered 03/05/22 Ordered By: Monica Campo Discharge Diet: Regular Discharge Activity: Increase activity as tolerated Patient Instructions: Caring for Your Baby (DC), Bottle Feeding Your Baby (DC), Caring for Your Breastfed Baby (DC), Caring for Your Formula Fed Baby (DC), Preeclampsia and Eclampsia After Delivery (GEN), Your 's Appearance (DC), OB Discharge Report, Opioid Safety, Abnormal Bleeding, Depression Activity Restrictions/Additional Instructions: Pelvic rest for 6 weeks and until cleared by doctor. Discharge Attestations TIRE SERVICE TECHNICIAN Time Spent in Discharge Care*: less than 30 min Coding Level of Care Code Acute Code for Chg Fwd Diagnoses Spontaneous vaginal delivery O80 Prolonged rupture of membranes, greater than 24 hours, delivered O42.10 Anemia D64.9
[2022-03-05 09:56] VITALS: BP 137/80; PULSE 68; RESP 16
== END 2022-03-05 09:40 | disposition home or self-care (01) | DRG 806 ==
PROVIDERS: Admitting Provider Family Medicine; PCP Family Medicine; Visit Provider Family Medicine
DX: O42.12 Full-term premature rupture of membranes, onset of labor more than 24 hours following rupture (principal); O72.2 Delayed and secondary postpartum hemorrhage; Z37.0 Single live birth; O69.81X0 Labor and delivery complicated by cord around neck, without compression, not applicable or unspecified; O90.81 Anemia of the puerperium; Z3A.37 37 weeks gestation of pregnancy; Z86.32 Personal history of gestational diabetes; Z87.891 Personal history of nicotine dependence
CPT/HCPCS: 36415; 51702; 59025; 59409; 81001; 84112; 85025; 85027; 96374; 98960; 99211; J2405; J2590; J2795; J3010; J7121

== ENCOUNTER → 2022-07-19 11:48 | Outpatient (BNVA) | payer MEDICAID, SELFPAY | PROVIDERS: PCP Family Medicine; Visit Provider Nurse Practitioner Family | DX: Z20.2 Contact with and (suspected) exposure to infections with a predominantly sexual mode of transmission (principal) | CPT/HCPCS: 87491; 87591; 87661 ==

== ENCOUNTER 2022-11-02 22:16 | Emergency (ER) | payer MEDICAID, SELFPAY ==
[2022-11-02 22:21] VITALS: BP 136/74; PULSE 84; RESP 18; O2SAT 98; BMI 35.7
[2022-11-02 22:27] VITALS: BP 136/74; PULSE 74; RESP 18; TEMP 37; O2SAT 97; BMI 35.7
--- NOTE | 2022-11-02 22:34 | ED_ITS ---
HPI - Chest Pain General: Chief Complaint: Chest Pain Stated Complaint: cp Time Seen by Provider: 11/02/22 22:33 History of Present Illness: 27-year-old female presenting with sharp chest discomfort, through the middle of her chest into her back. She has had this for about an hour and a half prior to my interview. No significant shortness of breath. No increased pain with deep breathing or cough. No fever. No history of cough or fever symptoms. No leg swelling. No long car trips. Associated symptoms: Deny abdominal pain, dyspnea, fever(s), nausea, palpitations or vomiting Review of Systems Const: Denies: fever(s), chills or body aches Eyes: Denies: change in vision Card: Reports: chest pain; Denies: palpitations Resp: Denies: dyspnea, productive cough, non-productive cough or wheezing GI: Denies: abdominal pain, nausea, vomiting, diarrhea or hematochezia : Denies: difficulty voiding Skin/Breast: Denies: rash Neuro: Denies: headache(s), weakness in extremities, dizziness or confusion [facility] ED PFSH: Medical History Anxiety Depression Gestational diabetes No significant past medical history Pharyngitis URI (upper respiratory infection) Social History Smoking and tobacco status: former smoker Physical Exam Const: COMMON NORMALS: no acute distress GENERAL APPEARANCE: cooperative; not ill appearing and not frail appearing HENMT: COMMON NORMALS: normocephalic, atraumatic and Normal external nose present HEAD & SCALP: normocephalic and atraumatic FACE & SINUS: normal facial exam and face symmetric NOSE: Normal external nose present Eye: COMMON NORMALS: Equal, round and reactive pupils present and EOMs intact bilaterally PUPIL: Yes Equal, round and reactive pupils present Neck/C-Spine: GENERAL: Yes trachea midline Chest: CHEST: Yes Symmetrical chest wall rise Resp: COMMON NORMALS: normal respiratory effort, No retractions, No use of ac cessory muscles and clear to auscultation bilaterally AUSCULTATION: clear to auscultation bilaterally Cardio: COMMON NORMALS: regular rate and regular rhythm RATE: regular rate RHYTHM: regular rhythm GI: COMMON NORMALS: Normal to inspection, nondistended, normoactive bowel sounds present Extremity: COMMON NORMALS: no pedal edema Neuro: JOSELIN COMA SCALE: document GCS findings Joselin coma scale eye opening: Spontaneous Dewitt coma scale verbal response: Orientated Dewitt coma scale motor response: Obey commands Joselin coma scale total score: 15 SENSORY EXAM: Yes extremities (intact) Psych: COMMON NORMALS: speech normal SPEECH: Yes normal speech Skin: COMMON NORMALS: no rashes or lesions noted GENERAL SKIN EXAM: no rashes or lesions noted Course Vital Signs: Vital signs: Vital Signs Temperature 98.6 F 11/02/22 22:27 Pulse Rate 74 11/02/22 22:27 Respiratory Rate 18 11/02/22 22:27 Blood Pressure 136/74 11/02/22 22:27 Pulse Oximetry 97 11/02/22 22:27 Oxygen Delivery Me thod Room Air 11/02/22 22:27 MDM - Chest Pain Lab Data 11/02/22 22:35 11/02/22 22:35 Laboratory Results WBC 6.06 10^3/uL (3.29-11.43) 11/02/22 22:35 RBC 4.93 10^6/uL (3.85-5.65) 11/02/22 22:35 Hgb 14.20 g/dL (11.27-16.99) 11/02/22 22:35 Hct 43.9 % (36-47) 11/02/22 22:35 MCV 89.0 fl (85-98) 11/02/22 22:35 MCH 28.8 pg (27-33) 11/02/22 22:35 MCHC 32.3 g/dL (30-55) 11/02/22 22:35 RDW 12.9 % (12.1-15.1) 11/02/22 22:35 Plt Count 258 10^3/cmm (157-399) 11/02/22 22:35 MPV 10.3 fL (7.4-10.4) 11/02/22 22:35 Neut % (Auto) 48.6 % 11/02/22 22:35 Lymph % (Auto) 41.1 % 11/02/22 22:35 [place] % (Auto) 6.1 % 11/02/22 22:35 Eos % (Auto) 3.3 % 11/02/22 22:35 Baso % (Auto) 0.7 % 11/02/22 22:35 Neut # (Auto) 2.95 10^3/uL (1.8-7.7) 11/02/22 22:35 Lymph # (Auto) 2.5 10^3/uL (0.8-4.8) 11/02/22 22:35 [place] # (Auto) 0.4 10^3/uL (0.2-0.9) 11/02/22 22:35 Eos # (Auto) 0.2 10^3/uL (0.0-0.8) 11/02/22 22:35 Baso # (Auto) 0.0 10^3/uL (0.0-0.1) 11/02/22 22:35 Nucleated RBC % (auto) 0 % 11/02/22 22:35 Nucleated RBCs # 0.0 /100WBC 11/02/22 22:35 HCG, Qual Negative (Negative) 11/02/22 22:35 Discharge Plan Discharge Condition: Stable Prescriptions: No Action sertraline 50 mg tablet 50 mg PO DAILY Referrals: Monica Campo DO [Primary Care Provider] - Coding Level of Care Code ED Fishing Instructor for Chg Brittany
--- NOTE | 2022-11-02 22:42 | ECG_ITS ---
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 Measurements Intervals [place] Rate: 71 P: 54 NH: 171 QRS: 60 QRSD: 89 T: 40 QT: 361 QTc: 395 Interpretive Statements SINUS RHYTHM WITH SINUS ARRHYTHMIA Compared to ECG 07/02/2017 12:21:19 No significant changes Electronically Signed On 11-03-2022 12:10:29 CDT by Jeana Pizano M.D. [id number]
--- NOTE | 2022-11-02 22:42 | XRR_ITS ---
PROCEDURE INFORMATION: Exam: XR Chest Exam date and time: 11/02/2022 10:53 PM Age: 27 years old Clinical indication: Chest pressure; Patient HX: C/O chest pain; Additional info: Cp TECHNIQUE: Imaging protocol: Radiologic exam of the chest. Views: 1 view. COMPARISON: CR XR chest 2V* [id number] 07/02/2017 12:31 PM FINDINGS: Lungs: Unremarkable. No consolidation. Pleural spaces: Unremarkable. No pleural effusion. No pneumothorax. Heart/Mediastinum: Unremarkable. No cardiomegaly. Bones/joints: Unremarkable. XR/XR chest 1V portable [id number] IMPRESSION: No acute findings.
[2022-11-02 22:51] LABS: Basophils % 0.7 %; Eosinophils # 0.2 10^3/uL (0.0-0.8); Eosinophils % 3.3 %; Hematocrit 43.9 % (36-47); Lymphocytes # 2.5 10^3/uL (0.8-4.8); Lymphocytes % 41.1 %; Mean Corpuscular HGB Conc 32.3 g/dL (30-55); Mean Corpuscular Hemoglobin 28.8 pg (27-33); Mean Platelet Volume 10.3 fL (7.4-10.4); Monocytes # 0.4 10^3/uL (0.2-0.9); Monocytes % 6.1 %; Neutrophils # 2.95 10^3/uL (1.8-7.7); Neutrophils % 48.6 %; Nucleated Red Blood Cells % 0 %; Platelet Count 258 10^3/cmm (157-399); Red Blood Count 4.93 10^6/uL (3.85-5.65); Red Cell Distribution Width 12.9 % (12.1-15.1); White Blood Count 6.06 10^3/uL (3.29-11.43)
[2022-11-02 23:00] VITALS: BP 117/85; PULSE 72; O2SAT 99
[2022-11-02 23:07] LABS: HCG, Serum Qual Negative (Negative)
[2022-11-02 23:20] LABS: Troponin(5th) Baseline 6 ng/L (0-10)
[2022-11-02 23:29] LABS: Alanine Aminotransferase 8 U/L (0-33); Albumin Level 4.9 g/dL (3.5-5.2); Alkaline Phosphatase 72 U/L (35-105); Anion Gap 13.6 (5-19); Aspartate Amino Transferase 12 U/L (0-32); Blood Urea Nitrogen 13 mg/dL (6-20); Calcium 9.1 mg/dL (8.5-10.5); Carbon Dioxide 25 mmol/L (22-29); Chloride 107 mmol/L (98-107); Globulin 2.4 g/dL (1.3-4.6); Glomerular Filtration Rate 76.3 mL/min (90-130); Glucose 78 mg/dL (65-115); NT Pro B Type Natriuretic Pept 51 pg/mL (0-125); Osmolality Calculated 293 mOsm/kg (285-295); Potassium 3.6 mmol/L (3.5-5.1); Sodium 142 mmol/L (136-145); Total Bilirubin 0.2 mg/dL (0.15-1.2); Total Protein 7.3 g/dL (6.6-8.7)
--- NOTE | 2022-11-02 23:29 | ED_ITS ---
HPI - Chest Pain General: Chief Complaint: Chest Pain Stated Complaint: cp Time Seen by Provider: 11/02/22 22:33 History of Present Illness: 27-year-old female presenting with chest discomfort. She notes that it is a sharp pain radiating into her back from the center of her chest. It started around an hour and a half prior to arrival. She denies any recent illness including significant cough, fever, etc. No long car trips. No leg edema. No history of heart problems. MD complaint: chest pain Associated symptoms: Deny abdominal pain, dyspnea, fever(s), nausea, palpitations or vomiting Review of Systems Const: Denies: fever(s), chills or body aches Eyes: Denies: change in vision Card: Reports: chest pain; Denies: palpitations Resp: Denies: dyspnea, productive cough, non-productive cough or wheezing GI: Denies: abdominal pain, nausea, vomiting, diarrhea or hematochezia : Denies: difficulty voiding Skin/Breast: Denies: rash Neuro: Denies: headache(s), weakness in extremities, dizziness or confusion PFS ED PFSH: Medical History Anxiety Depression Gestational diabetes No significant past medical history Pharyngitis URI (upper respiratory infection) Social History Smoking and tobacco status: former smoker Physical Exam Const: COMMON NORMALS: no acute distress GENERAL APPEARANCE: cooperative; not ill appearing and not frail appearing HENMT: COMMON NORMALS: normocephalic, atraumatic and Normal external nose present HEAD & SCALP: normocephalic and atraumatic FACE & SINUS: normal facial exam and face symmetric NOSE: Normal external nose present Eye: COMMON NORMALS: Equal, round and reactive pupils present and EOMs intact bilaterally PUPIL: Yes Equal, round and reactive pupils present Neck/C-Spine: GENERAL: Yes trachea midline Chest: CHEST: Yes Symmetrical chest wall rise Resp: COMMON NORMALS: normal respiratory effort, No retractions, No use of accessory muscles and clear to auscultation bilaterally AUSCULTATION: clear to auscultation bilaterally Cardio: COMMON NORMALS: regular rate and regular rhythm RATE: regular rate RHYTHM: regular rhythm GI: COMMON NORMALS: Normal to inspection, nondistended, normoactive bowel sounds present Extremity: COMMON NORMALS: no pedal edema Neuro: JOSELIN COMA SCALE: document GCS findings Joselin coma scale eye opening: Spontaneous Joselin coma scale verbal response: Orientated Shedd coma scale motor response: Obey commands Joselin coma scale total score: 15 SENSORY EXAM: Yes extremities (intact) Psych: COMMON NORMALS: speech normal SPEECH: Yes normal speech Skin: COMMON NORMALS: no rashes or lesions noted GENERAL SKIN EXAM: no rashes or lesions noted Course Vital Signs: Vital signs: Vital Signs Temperature 98.6 F 11/02/22 22:27 Pulse Rate 77 11/03/22 00:02 Respiratory Rate 18 11/02/22 23:47 Blood Pressure 122/87 11/03/22 00:02 Pulse Oximetry 99 11/03/22 00:02 Oxygen Delivery Me thod Room Air 11/02/22 23:30 MDM - Chest Pain Medical Decision Making 27-year-old female with chest discomfort. Somewhat sharp and pleuritic, although not reproducible. Vitals are normal. Patient is not hypoxic, nontach ycardic. Chest x-ray is negative. CBC is normal. BMP and liver enzymes are normal. hCG is negative. First troponin is 6. BNP is 51. Her mediastinum is not wide. She shows no sign of PE on physical exam. She will be allowed discharge. Lab Data 11/02/22 22:35 11/02/22 22:35 Radiology Impressions Chest X-Ray 11/02/22 22:42 IMPRESSION: No acute findings. Laboratory Results WBC 6.06 10^3/uL (3.29-11.43) 11/02/22 22:35 RBC 4.93 10^6/uL (3.85-5.65) 11/02/22 22:35 Hgb 14.20 g/dL (11.27-16.99) 11/02/22 22:35 Hct 43.9 % (36-47) 11/02/22 22:35 MCV 89.0 fl (85-98) 11/02/22 22:35 MCH 28.8 pg (27-33) 11/02/22 22:35 MCHC 32.3 g/dL (30-55) 11/02/22 22:35 RDW 12.9 % (12.1-15.1) 11/02/22 22:35 Plt Count 258 10^3/cmm (157-399) 11/02/22 22:35 MPV 10.3 fL (7.4-10.4) 11/02/22 22:35 Neut % (Auto) 48.6 % 11/02/22 22:35 Lymph % (Auto) 41.1 % 11/02/22 22:35 [place] % (Auto) 6.1 % 11/02/22 22:35 Eos % (Auto) 3.3 % 11/02/22 22:35 Baso % (Auto) 0.7 % 11/02/22 22: Neut # (Auto) 2.95 10^3/uL (1.8-7.7) 11/02/22 22: Lymph # (Auto) 2.5 10^3/uL (0.8-4.8) 11/02/22 22:35 [place] # (Auto) 0.4 10^3/uL (0.2-0.9) 11/02/22 22: Eos # (Auto) 0.2 10^3/uL (0.0-0.8) 11/02/22 22:35 Baso # (Auto) 0.0 10^3/uL (0.0-0.1) 11/02/22 22: Nucleated RBC % (auto) 0 % 11/02/22: Nucleated RBCs # 0.0 /100WBC 11/02/22 22:35 Sodium 142 mmol/L (136-145) 11/02/22 22:35 Potassium 3.6 mmol/L (3.5-5.1) 11/02/22 22:35 Chloride 107 mmol/L (98-107) 11/02/22 22:35 Carbon Dioxide 25 mmol/L (22-29) 11/02/22 22:35 Anion Gap 13.6 (5-19) 11/02/22 22:35 BUN 13 mg/dL (6-20) 11/02/22 22: Creatinine 0.9 mg/dL (0.5-0.9) 11/02/22 22:35 GFR Calculation 76.3 mL/min (90-130) L 11/02/22 22: Glucose 78 mg/dL (65-115) 11/02/22 22: Calculated Osmolality 293 mOsm/kg (285-295) 11/02/22 22:35 Calcium 9.1 mg/dL (8.5-10.5) 11/02/22 22:35 Total Bilirubin 0.2 mg/dL (0.15-1.2) 11/02/22 22:35 AST 12 U/L (0-32) 11/02/22 22:35 ALT 8 U/L (0-33) 11/02/22 22:35 Alkaline Phosphatase 72 U/L (35-105) 11/02/22 22:35 Troponin T Baseline 6 ng/L (0-10) 11/02/22 22:35 NT-Pro-B Natriuret Pep 51 pg/mL (0-125) 11/02/22 22:35 Total Protein 7.3 g/dL (6.6-8.7) 11/02/22 22:35 Albumin 4.9 g/dL (3.5-5.2) 11/02/22 22:35 Globulin 2.4 g/dL (1.3-4.6) 11/02/22 22:35 HCG, Qual Negative (Negative) 11/02/22 22:35 XR interpretation done by ED provider, pending radiology final review Discharge Plan Discharge Patient Disposition: Home Clinical Impression: Chest pain Condition: Stable Prescriptions: New ketorolac 10 mg tablet 10 mg PO TID PRN (Reason: pain) Qty: 10 0RF No Action sertraline 50 mg tablet 50 mg PO DAILY Discharge Orders: Discharge ED (Routine); Ordered 11/02/22 Ordered By: Erlin Barragan Referrals: Monica Campo DO [Primary Care Provider] - 1-3 days Patient Instructions: Chest Pain (ED), Opioid Safety, Pain Management Activity Restrictions/Additional Instructions: Medication as directed. Return for worsening pain despite treatment, shortness of breath, fever, other concerning symptoms. Follow-up with your doctor next week. Coding Level of Care Code ED Teacher Adventure Education for Brett Soto
[2022-11-02 23:30] VITALS: BP 129/88; PULSE 65; O2SAT 99
[2022-11-02 23:47] VITALS: RESP 18
[2022-11-02] MEDS: ondansetron 2 mg/ML SDV 2 mL 4 MG IVP (23:47)
[2022-11-02] MEDS: morphine 4 mg/mL SDV 1 mL IVP (23:47)
[2022-11-02] MEDS: ketorolac 30 mg/mL INJ 15 MG IVP (23:47)
[2022-11-03 00:02] VITALS: BP 122/87; PULSE 77; O2SAT 99
== END 2022-11-03 00:03 | disposition home or self-care (01) ==
PROVIDERS: Emergency Provider Emergency Medicine; PCP Family Medicine
DX: R07.9 Chest pain, unspecified (principal); Z87.891 Personal history of nicotine dependence
CPT/HCPCS: 71045; 80053; 83880; 84484; 84703; 85025; 93005; 96374; 96375; 99285; J1885; J2270; J2405

== ENCOUNTER 2022-12-30 23:58 | Emergency (ER) | payer MEDICAID, SELFPAY ==
[2022-12-31 00:04] VITALS: BP 124/82; PULSE 73; RESP 16; TEMP 36.9; O2SAT 98; BMI 39.1
--- NOTE | 2022-12-31 00:32 | ED_ITS ---
HPI - General Adult General: Chief complaint: General Medical Stated complaint: exposure to gas leak Time Seen by Provider: 12/31/22 00:23 Source: patient Mode of arrival: ambulatory Limitations: no limitations History of Present Illness: Patient is a 27-year-old female who presents to the ED today along her significant other and two children who are all being seen for concerns of a natural gas leak in their home. Significant other states he smelled the leak earlier today when he had the gas heating unit on high. He contacted fire department who came out and tested home. States their carbon monoxide testing was negative. Patient is reporting a mild headache. Significant other has had some dizziness. The two children were only exposed for a small amount of time (<20 mins) and are asymptomatic. Onset (ago): hour(s) Severity: mild Relieving factors: none Exacerbating factors: none Associated symptoms: Reports headache(s); Deny chest pain, confusion, dyspnea, malaise, nausea, rash, palpitations, syncope or vomiting Treatments prior to arrival: none Review of Systems Const: Denies: fever(s), chills, body aches, fatigue or malaise Eyes: Denies: change in vision, blurry vision or photophobia ENMT: Denies: throat pain or odynophagia Card: Denies: chest pain, palpitations, lightheadedness, syncope, pre-syncope, dyspnea on exertion or orthopnea Resp: Denies: dyspnea GI: Denies: nausea or vomiting Musc: Denies: neck pain Skin/Breast: Denies: rash Neuro: Reports: headache(s); Denies: numbness in extremities, weakness in extremities, sensory changes, lack of coordination, difficulty walking, frequent falls, dizziness, vertigo, confusion, behavioral changes, Slurred speech present, difficulty communicating thoughts or seizure-like activity PFS ED PFSH: Medical History Anxiety Depression Gestational diabetes No significant past medical history Pharyngitis URI (upper respiratory infection) Social History Smoking and tobacco/nicotine status: former use of tobacco/nicotine Physical Exam Const: COMMON NORMALS: no acute distress, average body habitus, patient oriented x3, no limitations, healthy appearing, alert and well nourished ORIENTATION/CONSCIOUSNESS: Yes awake, Yes oriented to person, Yes oriented to place and Yes oriented to time Resp: COMMON NORMALS: normal respiratory effort and clear to auscultation bilaterally AUSCULTATION: clear to auscultation bilaterally Cardio: COMMON NORMALS: regular rate and regular rhythm RATE: regular rate RHYTHM: regular rhythm Neuro: JOSELIN COMA SCALE: document GCS findings Joselin coma scale eye opening: Spontaneous Ferdinand coma scale verbal response: Orientated Joselin coma scale motor response: Obey commands Ferdinand coma scale total score: 15 COMMON NORMALS: patient oriented x3, moves all extremities, no focal motor deficits, no sensory deficits noted and gait normal SENSORIUM/ORIENTATION: Yes alert, Yes oriented to person, Yes oriented to place and Yes oriented to time Skin: COMMON NORMALS: no rashes or lesions noted GENERAL SKIN EXAM: no rashes or lesions noted Course Vital Signs: Vital signs: Vital Signs Temperature 98.5 F 12/31/22 00:04 Pulse Rate 73 12/31/22 00:04 Respiratory Rate 16 12/31/22 00:04 Blood Pressure 124/82 12/31/22 00:04 Pulse Oximetry 98 12/31/22 00:04 Oxygen Delivery Me thod Room Air 12/31/22 00:04 MDM - General Adult Medical Decision Making ABG/Carboxyhemoglobin is normal. She will be allowed discharge. Lab Data Laboratory Results Specimen Type Arterial 12/31/22 00:42 Sample Site Brachial, right 12/31/22 00:42 Krish Test N/a 12/31/22 00:42 A-a O2 Gradient 0.9 mmHg (5-10) L 12/31/22 00:42 Hematocrit 42.6 % (37-47) 12/31/22 00:42 Hgb O2 Saturation 97.5 % (95-100) 12/31/22 00:42 Carboxyhemoglobin 0.5 %THgb (0.4-20.1) 12/31/22 00:42 Methemoglobin 0.5 % (0.4-1.5) 12/31/22 00:42 Total Hemoglobin 13.9 g/dL (12-16) 12/31/22 00:42 O2 Delivery Device Room air 12/31/22 00:42 Clinical Studies Specialist ID [email or web address] 12/31/22 00:42 No radiology studies performed this visit Discharge Plan Discharge Patient Disposition: Home Clinical Impression: Exposure to natural gas Condition: Stable Prescriptions: No Action sertraline 50 mg tablet 50 mg PO DAILY ketorolac 10 mg tablet 10 mg PO TID PRN (Reason: pain) Qty: 10 0RF Discharge Orders: Discharge ED (Routine); Ordered 12/31/22 Ordered By: Ludivina Johnson Referrals: Monica Campo DO [Primary Care Provider] - Coding Level of Care Code ED Bathhouse Attendant for Romanag Brittany
[2022-12-31 00:54] LABS: Alveolar-Arterial Oxygen Gradi 0.9 mmHg (5-10); Arterial Blood Gas Hematocrit 42.6 % (37-47); Blood Gas Sample Site Brachial, right; Blood Gas Sample Type Arterial; Carboxyhemoglobin 0.5 %THgb (0.4-20.1); HGB O2 Sat 97.5 % (95-100); Methemoglobin 0.5 % (0.4-1.5); Oxygen Device ROOM AIR; Total Hemoglobin 13.9 g/dL (12-16)
[2022-12-31 01:26] VITALS: BP 124/64; PULSE 78; RESP 16
== END 2022-12-31 01:27 | disposition home or self-care (01) ==
PROVIDERS: Emergency Medicine; Emergency Provider Physician Assistant; PCP Family Medicine
DX: T59.891A Toxic effect of other specified gases, fumes and vapors, accidental (unintentional), initial encounter (principal); Z87.891 Personal history of nicotine dependence
CPT/HCPCS: 36600; 82810; 99283

== ENCOUNTER → 2023-01-14 16:45 | Outpatient (BNVA) | payer MEDICAID, SELFPAY | PROVIDERS: PCP Family Medicine; Visit Provider Registered Nurse Neonatal Intensive Care | DX: J02.9 Acute pharyngitis, unspecified (principal) | CPT/HCPCS: 87880 ==

== ENCOUNTER → 2023-01-25 12:44 | Outpatient (BNVA) | payer MEDICAID, SELFPAY | PROVIDERS: PCP Family Medicine; Visit Provider Nurse Practitioner | DX: Z79.899 Other long term (current) drug therapy (principal); F31.81 Bipolar II disorder; F17.200 Nicotine dependence, unspecified, uncomplicated; F12.90 Cannabis use, unspecified, uncomplicated | CPT/HCPCS: 80061; 83036 ==

== ENCOUNTER 2023-06-02 23:49 | Emergency (ER) | payer MEDICAID, SELFPAY ==
[2023-05-09 12:05] VITALS: BP 116/78; BMI 39.4
[2023-06-02 23:51] VITALS: BP 101/61; PULSE 75; RESP 16; TEMP 36.4; O2SAT 96; BMI 39.9
--- NOTE | 2023-06-03 00:43 | ECG_ITS ---
[facility] Test Date: 2023-06-02 Pat Name: Carol Solano Department: Room: Gender: Female Eyelet Cutter: : 1995 Requested By: Erlin Tsai Order Number: [id number] MD: Kirsten Olmstead M.D. Measurements Intervals [place] Rate: 79 P: 63 ND: 156 QRS: 62 QRSD: 88 T: 41 QT: 336 QTc: 386 Interpretive Statements SINUS RHYTHM Nonspecific T wave changes No previous ECG available for comparison Electronically Signed On 06-03-2023 19:22:42 CDT by Kirsten Olmstead M.D. [email or web address], [id number] f
--- NOTE | 2023-06-03 00:43 | XRR_ITS ---
PROCEDURE INFORMATION: Exam: XR Chest Exam date and time: 06/03/2023 1:00 AM Age: 27 years old Clinical indication: Chest pressure; Patient HX: C/O chest pain TECHNIQUE: Imaging protocol: Radiologic exam of the chest. Views: 1 view. COMPARISON: CR (CHEST, ) 11/02/2022 10:53 PM FINDINGS: Lungs: Unremarkable. No consolidation. Pleural spaces: Unremarkable. No pleural effusion. No pneumothorax. Heart/Mediastinum: Unremarkable. No cardiomegaly. Bones/joints: Unremarkable. XR/XR chest 1V portable [id number] IMPRESSION: No acute findings.
[2023-06-03 00:59] LABS: Basophils % 0.6 %; Eosinophils # 0.5 10^3/uL (0.0-0.8); Eosinophils % 7.2 %; Hematocrit 41.6 % (36-47); Lymphocytes # 2.4 10^3/uL (0.8-4.8); Lymphocytes % 34.7 %; Mean Corpuscular HGB Conc 33.4 g/dL (30-55); Mean Corpuscular Hemoglobin 29.6 pg (27-33); Mean Corpuscular Volume 88.5 fl (85-98); Mean Platelet Volume 9.8 fL (7.4-10.4); Monocytes # 0.5 10^3/uL (0.2-0.9); Monocytes % 6.6 %; Neutrophils # 3.52 10^3/uL (1.8-7.7); Neutrophils % 50.8 %; Nucleated Red Blood Cells % 0 %; Platelet Count 262 10^3/cmm (157-399); Red Cell Distribution Width 12.6 % (12.1-15.1); White Blood Count 6.94 10^3/uL (3.29-11.43)
[2023-06-03 01:12] VITALS: BP 132/68; PULSE 75; RESP 12; O2SAT 98
[2023-06-03 01:25] LABS: Troponin(5th) Baseline < 6 ng/L (0-10)
[2023-06-03 01:33] VITALS: PULSE 65; RESP 18; O2SAT 99
[2023-06-03 01:33] LABS: Alanine Aminotransferase 10 U/L (0-33); Albumin Level 4.3 g/dL (3.5-5.2); Alkaline Phosphatase 80 U/L (35-105); Anion Gap 15.2 (5-19); Aspartate Amino Transferase 13 U/L (0-32); Blood Urea Nitrogen 14 mg/dL (6-20); Calcium 9.5 mg/dL (8.5-10.5); Carbon Dioxide 23 mmol/L (22-29); Chloride 107 mmol/L (98-107); Creatinine Clr Calc Pharmacy 117.2771; Globulin 2.7 g/dL (1.3-4.6); Glomerular Filtration Rate 76.3 mL/min (90-130); Glucose 77 mg/dL (65-115); NT Pro B Type Natriuretic Pept < 36 pg/mL (0-125); Osmolality Calculated 291 mOsm/kg (285-295); Potassium 4.2 mmol/L (3.5-5.1); Sodium 141 mmol/L (136-145); Total Bilirubin 0.2 mg/dL (0.15-1.2)
[2023-06-03] MEDS: ipratropium-albuterol 3 mL Neb INHALATION (01:33)
[2023-06-03 01:41] VITALS: PULSE 68
[2023-06-03 01:59] LABS: HCG, Serum Qual Negative (Negative)
--- NOTE | 2023-06-03 02:08 | ED_ITS ---
HPI - Chest Pain 2 General: Chief Complaint: Chest Pain Stated Complaint: Sob chest is burning on intake Time Seen by Provider: 06/03/23 00:38 History of Present Illness: 27-year-old female whose had discomfort on and off for a couple of days. It seems to be worse with deep breathing. It is in the center of her chest and radiates to her back. She has had a cough. She has been wheezing. No fever. No leg swelling. She does not believe she is . Associated symptoms: Deny abdominal pain, fever(s), nausea, palpitations or vomiting Review of Systems 2 Const: Denies: fever(s), chills or body aches Eyes: Denies: change in vision Card: Denies: palpitations Resp: Denies: productive cough or wheezing GI: Denies: abdominal pain, nausea, vomiting, diarrhea or hematochezia : Denies: difficulty voiding Skin/Breast: Denies: rash Neuro: Denies: headache(s), weakness in extremities, dizziness or confusion PFSH ED 2 PFSH: Medical History Cannabis use disorder Nicotine use disorder Bipolar 2 disorder On combination antipsychotic drug therapy Psychiatric care Anxiety Depression Gestational diabetes URI (upper respiratory infection) Pharyngitis No significant past medical history Social History (Updated 04/29/23 @ 10:46 by Ciera Garcia LPN) Smoking and tobacco/nicotine status: current every day tobacco/nicotine user e- cigarettes Alcohol intake: never Substance/Drug Use: former Adopted: No Caregiver/support person: No Lives independently: No Household members: spouse and children Housing: House Marital status: Number of children: 2 Highest education level completed: High School Graduate service: No Current occupational status: unemployed Pets and animals: No Leisure activites: other 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 Do you think of yourself as: Bisexual Current gender identity: Female Kate/Yazdanism: Yarsani Special kate needs: No Agree to transfusion: Yes Female Reproductive History: Spontaneous abortions: No Physical Exam 2 Const: COMMON NORMALS: no acute distress GENERAL APPEARANCE: cooperative; not ill appearing and not frail appearing HENMT: COMMON NORMALS: normocephalic, atraumatic and Normal external nose present HEAD & SCALP: normocephalic and atraumatic FACE & SINUS: normal facial exam and face symmetric NOSE: Normal external nose present Eye: COMMON NORMALS: Equal, round and reactive pupils present and EOMs intact bilaterally PUPIL: Yes Equal, round and reactive pupils present Neck/C-Spine: GENERAL: Yes trachea midline Chest: CHEST: Yes Symmetrical chest wall rise Resp: COMMON NORMALS: normal respiratory effort, No retractions and No use of accessory muscles AUSCULTATION: wheezes (Slight intermittent) Cardio: COMMON NORMALS: regular rate and regular rhythm RATE: regular rate RHYTHM: regular rhythm GI: COMMON NORMALS: Normal to inspection, nondistended, normoactive bowel sounds present Extremity: COMMON NORMALS: no pedal edema Neuro: JOSELIN COMA SCALE: document GCS findings [place] coma scale eye opening: Spontaneous Joselin coma scale verbal response: Orientated Joselin coma scale motor response: Obey commands Joselin coma scale total score: 15 S ENSORY EXAM: Yes extremities (intact) Psych: COMMON NORMALS: speech normal SPEECH: Yes normal speech Skin: COMMON NORMALS: no rashes or lesions noted GENERAL SKIN EXAM: no rashes or lesions noted Course 2 Vital Signs: Vital signs: Vital Signs Temperature 97.6 F 06/02/23 23:51 Pulse Rate 93 06/03/23 02:48 Respiratory Rate 18 06/03/23 01:33 Blood Pressure 117/79 06/03/23 02:48 Pulse Oximetry 98 06/03/23 02:48 Oxygen Delivery Me thod Room Air 06/03/23 01:33 MDM - Chest Pain Medical Decision Making She feels improved after breathing treatment here. CBC is normal. BMP is normal. Chest x-ray is normal. First troponin is less than 6, BNP is nondetectable. EKG shows a normal sinus rhythm with no acute ST wave changes. She will be discharged on Zithromax, steroids, antibiotics for acute bronchitis. To return for worsening symptoms. Lab Data 06/03/23 00:55 06/03/23 00:55 Radiology Impressions Chest X-Ray 06/03/23 00:43 IMPRESSION: No acute findings. Laboratory Results WBC 6.94 10^3/uL (3.29-11.43) 06/03/23 00:55 RBC 4.70 10^6/uL (3.85-5.65) 06/03/23 00:55 Hgb 13.90 g/dL (11.27-16.99) 06/03/23 00:55 Hct 41.6 % (36-47) 06/03/23 00:55 MCV 88.5 fl (85-98) 06/03/23 00:55 MCH 29.6 pg (27-33) 06/03/23 00:55 MCHC 33.4 g/dL (30-55) 06/03/23 00:55 RDW 12.6 % (12.1-15.1) 06/03/23 00:55 Plt Count 262 10^3/cmm (157-399) 06/03/23 00:55 MPV 9.8 fL (7.4-10.4) 06/03/23 00:55 Neut % (Auto) 50.8 % 06/03/23 00:55 Lymph % (Auto) 34.7 % 06/03/23 00:55 [place] % (Auto) 6.6 % 06/03/23 00:55 Eos % (Auto) 7.2 % 06/03/23 00:55 Baso % (Auto) 0.6 % 06/03/23 00:55 Neut # (Auto) 3.52 10^3/uL (1.8-7.7) 06/03/23 00:55 Lymph # (Auto) 2.4 10^3/uL (0.8-4.8) 06/03/23 00:55 [place] # (Auto) 0.5 10^3/uL (0.2-0.9) 06/03/23 00:55 Eos # (Auto) 0.5 10^3/uL (0.0-0.8) 06/03/23 00:55 Baso # (Auto) 0.0 10^3/uL (0.0-0.1) 06/03/23 00:55 Nucleated RBC % (auto) 0 % 06/03/23 00:55 Nucleated RBCs # 0.0 /100WBC 06/03/23 00:55 Sodium 141 mmol/L (136-145) 06/03/23 00:55 Potassium 4.2 mmol/L (3.5-5.1) 06/03/23 00:55 Chloride 107 mmol/L (98-107) 06/03/23 00:55 Carbon Dioxide 23 mmol/L (22-29) 06/03/23 00:55 Anion Gap 15.2 (5-19) 06/03/23 00:55 BUN 14 mg/dL (6-20) 06/03/23 00:55 Creatinine 0.9 mg/dL (0.5-0.9) 06/03/23 00:55 GFR Calculation 76.3 mL/min (90-130) L 06/03/23 00:55 Glucose 77 mg/dL (65-115) 06/03/23 00:55 Calculated Osmolality 291 mOsm/kg (285-295) 06/03/23 00:55 Calcium 9.5 mg/dL (8.5-10.5) 06/03/23 00:55 Total Bilirubin 0.2 mg/dL (0.15-1.2) 06/03/23 00:55 AST 13 U/L (0-32) 06/03/23 00:55 ALT 10 U/L (0-33) 06/03/23 00:55 Alkaline Phosphatase 80 U/L (35-105) 06/03/23 00:55 Troponin T Baseline < 6 ng/L (0-10) 06/03/23 00:55 NT-Pro-B Natriuret Pep < 36 pg/mL (0-125) 06/03/23 00:55 Total Protein 7.0 g/dL (6.6-8.7) 06/03/23 00:55 Albumin 4.3 g/dL (3.5-5.2) 06/03/23 00:55 Globulin 2.7 g/dL (1.3-4.6) 06/03/23 00:55 HCG, Qual Negative (Negative) 06/03/23 00:55 All radiology interpretation(s) finalized by discharge Discharge Plan Discharge Patient Disposition: Home Clinical Impression: Acute bronchitis Condition: Stable Prescriptions: New Medrol (Antony) 4 mg tablets,dose pack See Rx Instructions .ROUTE .COMPLEX Qty: 21 0RF Rx Instructions: orally per package directions albuterol sulfate 90 mcg/actuation HFA aerosol inhaler 2 inh INHALATION Q4H PRN (Reason: shortness of breath or wheezing) Qty: 6.7 1RF azithromycin 250 mg tablet See Rx Instructions .ROUTE .COMPLEX Qty: 6 0RF Rx Instructions: For 250 mg dose pack: take 500 mg today (day 1), then 250 mg for 4 days (days 2-5) No Action hydroxyzine HCl 10 mg tablet 10 mg PO TID PRN (Reason: anxiety) Qty: 90 0RF bupropion HCl [Wellbutrin XL] 300 mg tablet extended release 24 hr 300 mg PO QAM Qty: 30 2RF Discharge Orders: Discharge ED (Routine); Ordered 06/03/23 Ordered By: Erlin Barragan Referrals: Monica Campo DO [Primary Care Provider] - 1-3 days Patient Instructions: Acute Bronchitis (ED), Opioid Safety, Pain Management Activity Restrictions/Additional Instructions: Return for worsening chest discomfort or shortness of breath despite treatment, fever despite 2-3 doses of antibiotics, any other concerning symptoms. See your doctor this week. Coding Level of Care Code ED Senior Qualitative Researcher for Brett Soto
[2023-06-03] MEDS: predniSONE 20 mg Tablet 60 MG PO (02:47)
[2023-06-03 02:48] VITALS: BP 117/79; PULSE 93; O2SAT 98
== END 2023-06-03 02:54 | disposition home or self-care (01) ==
PROVIDERS: Emergency Provider Emergency Medicine; PCP Family Medicine
DX: J20.9 Acute bronchitis, unspecified (principal); F17.290 Nicotine dependence, other tobacco product, uncomplicated
CPT/HCPCS: 36415; 71045; 80053; 83880; 84484; 84703; 85025; 93005; 94640; 99285; J7512

== ENCOUNTER 2023-06-22 19:58 | Emergency (ER) | payer MEDICAID, SELFPAY ==
[2023-05-09 12:05] VITALS: BP 116/78; BMI 39.4
[2023-06-22 20:01] VITALS: BP 116/86; PULSE 91; RESP 16; TEMP 37; O2SAT 95; BMI 39.9
--- NOTE | 2023-06-22 20:49 | ED_ITS ---
HPI - SOB/Dyspnea General: Chief Complaint: Shortness of Breath/Dyspnea Stated Complaint: cp, sob Time Seen by Provider: 06/22/23 20:46 [facility] ED PFSH: Medical History Cannabis use disorder Nicotine use disorder Bipolar 2 disorder On combination antipsychotic drug therapy Psychiatric care Anxiety Depression Gestational diabetes URI (upper respiratory infection) Pharyngitis No significant past medical history Social History (Updated 04/29/23 @ 10:46 by Ciera Garcia LPN) Smoking and tobacco/nicotine status: current every day tobacco/nicotine user e- cigarettes Alcohol intake: never Substance/Drug Use: former Adopted: No Caregiver/support person: No Lives independently: No Household members: spouse and children Housing: House Marital status: Number of children: 2 Highest education level completed: High School Graduate service: No Current occupational status: unemployed Pets and animals: No Leisure activites: other 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 Do you think of yourself as: Bisexual Current gender identity: Female Kate/Taoism: Muslim Special kate needs: No Agree to transfusion: Yes Female Reproductive History: Spontaneous abortions: No Course Vital Signs: Vital signs: Vital Signs Temperature 98.6 F 06/22/23 20:01 Pulse Rate 91 06/22/23 20:01 Respiratory Rate 16 06/22/23 20:01 Blood Pressure 116/86 06/22/23 20:01 Pulse Oximetry 95 06/22/23 20:01 Oxygen Delivery Me thod Room Air 06/22/23 20:01 Discharge Plan Discharge Condition: Stable Prescriptions: No Action hydroxyzine HCl 10 mg tablet 10 mg PO TID PRN (Reason: anxiety) Qty: 90 0RF bupropion HCl [Wellbutrin XL] 300 mg tablet extended release 24 hr 300 mg PO QAM Qty: 30 2RF Medrol (Antony) 4 mg tablets,dose pack See Rx Instructions .ROUTE .COMPLEX Qty: 21 0RF Rx Instructions: orally per package directions albuterol sulfate 90 mcg/actuation HFA aerosol inhaler 2 inh INHALATION Q4H PRN (Reason: shortness of breath or wheezing) Qty: 6.7 1RF azithromycin 250 mg tablet See Rx Instructions .ROUTE .COMPLEX Qty: 6 0RF Rx Instructions: For 250 mg dose pack: take 500 mg today (day 1), then 250 mg for 4 days (days 2-5) Referrals: Monica Campo DO [Primary Care Provider] - Coding Level of Care Code ED Polishing Machine Tender for Brett Soto
--- NOTE | 2023-06-22 20:52 | W.ED.SOB ---
HPI - SOB/Dyspnea General: Chief Complaint: Shortness of Breath/Dyspnea Stated Complaint: cp, sob Time Seen by Provider: 06/22/23 20:46 History of Present Illness: HPI Narrative: Patient reports to the emergency room with continued burning with breathing and shortness of breath. She was treated in the emergency room a couple weeks ago. She says symptoms been going on for about 2 weeks. She is not tachypneic and not requiring oxygen. Lungs are clear on exam. She has not been to see her primary since her emergency room visit. She says she took her antibiotics and her steroids and did not really get better. Review of Systems Narrative: Constitutional symptoms: Negative except as documented in HPI. Skin symptoms: Negative except as documented in HPI. Eye symptoms: Negative except as documented in HPI. ENMT symptoms: Negative except as documented in HPI. Respiratory symptoms: Negative except as documented in HPI. Cardiovascular symptoms: Negative except as documented in HPI. Gastrointestinal symptoms: Negative except as documented in HPI. Genitourinary symptoms: Negative except as documented in HPI. Musculoskeletal symptoms: Negative except as documented in HPI. Neurologic symptoms: Negative except as documented in HPI. Psychiatric symptoms: Negative except as documented in HPI. Endocrine symptoms: Negative except as documented in HPI. PFSH ED PFSH: Medical History Cannabis use disorder Nicotine use disorder Bipolar 2 disorder On combination antipsychotic drug therapy Psychiatric care Anxiety Depression Gestational diabetes URI (upper respiratory infection) Pharyngitis No significant past medical history Social History (Updated 04/29/23 @ 10:46 by Ciera Garcia LPN) Smoking and tobacco/nicotine status: current every day tobacco/nicotine user e-cigarettes Alcohol intake: never Substance/Drug Use: former Adopted: No Caregiver/support person: No Lives independently: No Household members: spouse and children Housing: House Marital status: Number of children: 2 Highest education level completed: High School Graduate service: No Current occupational status: unemployed Pets and animals: No Leisure activites: other 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 Skin: Warm, dry. Head: Normocephalic, atraumatic. Neck: Supple, trachea midline. Eye: Extraocular movements are intact. Ears, nose, mouth and throat: mucosa moist. Cardiovascular: Regular, Normal peripheral perfusion. Respiratory: Lungs are clear to auscultation, respirations are non-labored, breath sounds are equal, Symmetrical chest wall expansion. Gastrointestinal: Soft, Nontender, Non distended, Normal bowel sounds. Musculoskeletal: Normal ROM, no deformity. Neurological: Alert and oriented, No focal neurological deficit observed. Psychiatric: Cooperative, appropriate mood & affect. Course Vital Signs: Vital signs: Vital Signs Temperature 98.6 F 06/22/23 20:01 Pulse Rate 91 06/22/23 20:01 Respiratory Rate 16 06/22/23 20:01 Blood Pressure 116/86 06/22/23 20:01 Pulse Oximetry 95 06/22/23 20:01 Oxygen Delivery Me thod Room Air 06/22/23 20:01 MDM - SOB/Dyspnea Medical Decision Making Patient had a normal workup recently. Not requiring oxygen. I am going to try her on doxycycline for atypical coverage and another steroid taper and have insisted she go see her primary doctor soon as possible. Assessment and plan: - Discharged home - Discussed plan with patient. Answered any questions. - Evaluation and treatment of this problem were appropriate in the emergency setting. No radiology studies performed this visit Discharge Plan Discharge Clinical Impression: Bronchitis Condition: Stable Prescriptions: New doxycycline hyclate 100 mg capsule 100 mg PO BID 7 Days Qty: 14 0RF prednisone 20 mg tablet 60 mg PO DAILY Qty: 20 0RF Rx Instructions: 3 tabs (60 mg) x 3 days. 2 tabs (40 mg) x 3 days. 1 tab (20 mg) x 3 days. 1/2 tab (10 mg) x 4 days No Action hydroxyzine HCl 10 mg tablet 10 mg PO TID PRN (Reason: anxiety) Qty: 90 0RF bupropion HCl [Wellbutrin XL] 300 mg tablet extended release 24 hr 300 mg PO QAM Qty: 30 2RF Medrol (Antony) 4 mg tablets,dose pack See Rx Instructions .ROUTE .COMPLEX Qty: 21 0RF Rx Instructions: orally per package directions albuterol sulfate 90 mcg/actuation HFA aerosol inhaler 2 inh INHALATION Q4H PRN (Reason: shortness of breath or wheezing) Qty: 6.7 1RF azithromycin 250 mg tablet See Rx Instructions .ROUTE .COMPLEX Qty: 6 0RF Rx Instructions: For 250 mg dose pack: take 500 mg today (day 1), then 250 mg for 4 days (days 2-5) Discharge Orders: Discharge ED (Routine); Ordered 06/22/23 Ordered By: Carol Rodriguez Referrals: Monica Campo, [Primary Care Provider] - 4-7 days (You have been screened and evaluated and felt safe for discharge. Health conditions do change or evolve sometimes and as such it is important that you follow up with your Primary Doctor to be re checked, 3-5 days is a general good time frame for follow up. You are always welcome to return to the ED for re assessment if your symptoms are worsening or you have new concerns) Discharge Diet: Usual diet Discharge Activity: Increase activity as tolerated Patient Instructions: Acute Bronchitis (ED) Coding Level of Care Code ED Retail Assistant Manager for Brett Soto
== END 2023-06-22 21:00 | disposition home or self-care (01) ==
PROVIDERS: Emergency Provider Emergency Medicine; PCP Family Medicine
DX: J40 Bronchitis, not specified as acute or chronic (principal); F17.290 Nicotine dependence, other tobacco product, uncomplicated
CPT/HCPCS: 99283

== ENCOUNTER 2023-06-28 11:47 | Emergency (ER) | payer MEDICAID, SELFPAY ==
[2023-05-09 12:05] VITALS: BP 116/78; BMI 39.4
--- NOTE | 2023-06-28 11:49 | XR_ITS ---
WS: [id number] Portable AP upright chest, 06/28/2023 Clinical Data: cp Comparison: Portable chest, 06/03/2023 Findings: No nodules, masses or effusions are seen. The heart is normal. The pulmonary vascularity is not increased. No pneumonia or pneumothorax is seen. XR/XR chest 1V portable [id number] Impression: Negative chest.
--- NOTE | 2023-06-28 11:49 | ECG_ITS ---
[facility] Test Date: 2023-06-28 Pat Name: Carol Solano Department: Room: Gender: Female Roller Leveler: : 1995 Requested By: Nicolas Vogel Order Number: [id number] Kerry MD: Ubaldo Bay M.D. Measurements Intervals [place] Rate: 79 P: 40 ME: 150 QRS: 38 QRSD: 89 T: 32 QT: 352 QTc: 404 Interpretive Statements SINUS RHYTHM Compared to ECG 06/02/2023 23:51:45 T-wave abnormality no longer present Electronically Signed On 06-28-2023 14:49:44 CDT by Ubaldo Bay M.D. [id number]
[2023-06-28 11:53] VITALS: BP 131/100; PULSE 79; RESP 18; TEMP 36.7; O2SAT 98; BMI 39.9
--- NOTE | 2023-06-28 13:23 | ED_ITS ---
HPI - Chest Pain 2 General: Chief Complaint: Chest Pain Stated Complaint: chest pain Time Seen by Provider: 06/28/23 13:19 Source: patient Mode of arrival: ambulatory Limitations: no limitations History of Present Illness: 28-year-old female states that the last 2 weeks she has been having slight cough along with chest pains and shortness of breath. States the pains been sharp pains mainly in the right side of her chest states that she wakes in the morning she feels like she cannot get a good breath and and has some worsening pain denies any fevers she is in no distress currently Associated symptoms: Reports dyspnea; Deny abdominal pain, fever(s), nausea or vomiting Review of Systems 2 Const: Denies: fever(s), chills, body aches or change in appetite ENMT: Denies: throat pain or dental pain Card: Reports: chest pain Resp: Reports: dyspnea GI: Denies: abdominal pain, nausea, vomiting or diarrhea : Denies: dysuria Musc: Denies: neck pain or back pain Skin/Breast: Denies: rash Neuro: Denies: headache(s) PFSH ED 2 PFSH: Medical History Cannabis use disorder Nicotine use disorder Bipolar 2 disorder On combination antipsychotic drug therapy Psychiatric care Anxiety Depression Gestational diabetes URI (upper respiratory infection) Pharyngitis No significant past medical history Social History Smoking and tobacco/nicotine status: current every day tobacco/nicotine user e- cigarettes Alcohol intake: never Substance/Drug Use: former Adopted: No Caregiver/support person: No Lives independently: No Household members: spouse and children Housing: House Marital status: Number of children: 2 Highest education level completed: High School Graduate service: No Current occupational status: unemployed Pets and animals: No Leisure activites: other 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 Do you think of yourself as: Bisexual Current gender identity: Female Kate/Gnosticist: Sabianism Special kate needs: No Agree to transfusion: Yes Female Reproductive History: Spontaneous abortions: No Physical Exam 2 Const: COMMON NORMALS: no acute distress, patient oriented x3 and healthy appearing HENMT: COMMON NORMALS: normocephalic and atraumatic HEAD & SCALP: n ormocephalic and atraumatic Neck/C-Spine: COMMON NORMALS: full ROM and supple Chest: COMMONS NORMALS: normal inspection of the chest and normal palpation of entire chest wall Resp: COMMON NORMALS: normal respiratory effort, No retractions, No use of accessory muscles and clear to auscultation bilaterally AUSCULTATION: clear to auscultation bilaterally Cardio: COMMON NORMALS: regular rate, regular rhythm and No murmurs present (Cardio) RATE: regular rate RHYTHM: regular rhythm Extremity: COMMON NORMALS: normal to inspection and full ROM Neuro: COMMON NORMALS: patient oriented x3, moves all extremities and no focal motor deficits Psych: COMMON NORMALS: mental status grossly normal, Normal thought process present and cooperative THOUGHT PROCESS: Normal thought process present Skin: COMMON NORMALS: no rashes or lesions noted and no wounds GENERAL SKIN EXAM: no rashes or lesions noted Course 2 Vital Signs: Vital signs: Vital Signs Temperature 98.0 F 06/28/23 11:53 Pulse Rate 73 06/28/23 13:36 Respiratory Rate 18 06/28/23 11:53 Blood Pressure 142/92 06/28/23 13:36 Pulse Oximetry 97 06/28/23 13:36 Oxygen Delivery Me thod Room Air 06/28/23 13:36 MDM - Chest Pain Medical Decision Making Patient presents here with chest pains atypical in nature she had a cough likely pleuritic pain her D-dimer is negative no signs of pulmonary embolism she stable for discharge she is follow-up with PCP return if worsening. Medical Records I reviewed the patient's medical records. Lab Data I reviewed the patient's lab results. 06/28/23 13:35 06/28/23 13:35 Radiology Impressions Chest X-Ray 06/28/23 11:49 Impression: Negative chest. Laboratory Results WBC 7.09 10^3/uL (3.29-11.43) 06/28/23 13:35 RBC 4.73 10^6/uL (3.85-5.65) 06/28/23 13:35 Hgb 14.00 g/dL (11.27-16.99) 06/28/23 13:35 Hct 42.1 % (36-47) 06/28/23 13:35 MCV 89.0 fl (85-98) 06/28/23 13:35 MCH 29.6 pg (27-33) 06/28/23 13:35 MCHC 33.3 g/dL (30-55) 06/28/23 13:35 RDW 12.6 % (12.1-15.1) 06/28/23 13:35 Plt Count 270 10^3/cmm (157-399) 06/28/23 13:35 MPV 9.5 fL (7.4-10.4) 06/28/23 13:35 Neut % (Auto) 87.0 % 06/28/23 13:35 Lymph % (Auto) 10.4 % 06/28/23 13:35 [place] % (Auto) 1.6 % 06/28/23 13:35 Eos % (Auto) 0.4 % 06/28/23 13:35 Baso % (Auto) 0.3 % 06/28/23 13:35 Neut # (Auto) 6.17 10^3/uL (1.8-7.7) 06/28/23 13:35 Lymph # (Auto) 0.7 10^3/uL (0.8-4.8) L 06/28/23 13:35 [place] # (Auto) 0.1 10^3/uL (0.2-0.9) L 06/28/23 13:35 Eos # (Auto) 0.0 10^3/uL (0.0-0.8) 06/28/23 13:35 Baso # (Auto) 0.0 10^3/uL (0.0-0.1) 06/28/23 13:35 Nucleated RBC % (auto) 0 % 06/28/23 13:35 Nucleated RBCs # 0.0 /100WBC 06/28/23 13:35 D-Dimer 0.38 ug/mLFEU (0-0.59) 06/28/23 13:35 Sodium 140 mmol/L (136-145) 06/28/23 13:35 Potassium 4.1 mmol/L (3.5-5.1) 06/28/23 13:35 Chloride 105 mmol/L (98-107) 06/28/23 13:35 Carbon Dioxide 23 mmol/L (22-29) 06/28/23 13:35 Anion Gap 16.1 (5-19) 06/28/23 13:35 BUN 13 mg/dL (6-20) 06/28/23 13:35 Creatinine 0.9 mg/dL (0.5-0.9) 06/28/23 13:35 GFR Calculation 75.7 mL/min (90-130) L 06/28/23 13:35 Glucose 105 mg/dL (65-115) 06/28/23 13:35 Calculated Osmolality 290 mOsm/kg (285-295) 06/28/23 13:35 Calcium 8.6 mg/dL (8.5-10.5) 06/28/23 13:35 Total Bilirubin 0.2 mg/dL (0.15-1.2) 06/28/23 13:35 AST 30 U/L (0-32) 06/28/23 13:35 ALT 36 U/L (0-33) H 06/28/23 13:35 Alkaline Phosphatase 76 U/L (35-105) 06/28/23 13:35 Total Protein 7.7 g/dL (6.6-8.7) 06/28/23 13:35 Albumin 4.3 g/dL (3.5-5.2) 06/28/23 13:35 Globulin 3.4 g/dL (1.3-4.6) 06/28/23 13:35 All radiology interpretation(s) finalized by discharge EKG Data EKG 1: I personally reviewed and interpreted this EKG as follows: EKG interpretation date: 06/28/23 EKG interpretation time: 11:48 Interpretation: nsr hr [address] or t wave abnormalities qrs 89 qtc 386 Discharge Plan Discharge Patient Disposition: Home Clinical Impression: Chest pain Condition: Stable Prescriptions: No Action hydroxyzine HCl 10 mg tablet 10 mg PO TID PRN (Reason: anxiety) Qty: 90 0RF bupropion HCl [Wellbutrin XL] 300 mg tablet extended release 24 hr 300 mg PO QAM Qty: 30 2RF doxycycline hyclate 100 mg capsule 100 mg PO BID 7 Days Qty: 14 0RF prednisone 20 mg tablet 60 mg PO DAILY Qty: 20 0RF Rx Instructions: 3 tabs (60 mg) x 3 days. 2 tabs (40 mg) x 3 days. 1 tab (20 mg) x 3 days. 1/2 tab (10 mg) x 4 days Medrol (Antony) 4 mg tablets,dose pack See Rx Instructions .ROUTE .COMPLEX Qty: 21 0RF Rx Instructions: orally per package directions albuterol sulfate 90 mcg/actuation HFA aerosol inhaler 2 inh INHALATION Q4H PRN (Reason: shortness of breath or wheezing) Qty: 6.7 1RF azithromycin 250 mg tablet See Rx Instructions .ROUTE .COMPLEX Qty: 6 0RF Rx Instructions: For 250 mg dose pack: take 500 mg today (day 1), then 250 mg for 4 days (days 2-5) Discharge Orders: Discharge ED (Routine); Ordered 06/28/23 Ordered By: Nicolas Vogel Referrals: Monica Campo DO [Primary Care Provider] - 4-7 days Discharge Diet: Advance as tolerated Discharge Activity: Resume usual activity Patient Instructions: Chest Pain (ED) Coding Level of Care Code ED Theater Company Producer for Brett Soto
[2023-06-28 13:36] VITALS: BP 142/92; PULSE 73; O2SAT 97
[2023-06-28 13:42] LABS: Basophils % 0.3 %; Eosinophils % 0.4 %; Hematocrit 42.1 % (36-47); Lymphocytes # 0.7 10^3/uL (0.8-4.8); Lymphocytes % 10.4 %; Mean Corpuscular HGB Conc 33.3 g/dL (30-55); Mean Corpuscular Hemoglobin 29.6 pg (27-33); Mean Platelet Volume 9.5 fL (7.4-10.4); Monocytes # 0.1 10^3/uL (0.2-0.9); Monocytes % 1.6 %; Neutrophils # 6.17 10^3/uL (1.8-7.7); Nucleated Red Blood Cells % 0 %; Platelet Count 270 10^3/cmm (157-399); Red Blood Count 4.73 10^6/uL (3.85-5.65); Red Cell Distribution Width 12.6 % (12.1-15.1); White Blood Count 7.09 10^3/uL (3.29-11.43)
[2023-06-28] MEDS: ketorolac 30 mg/mL INJ IVP (13:47)
[2023-06-28 13:58] LABS: D Dimer 0.38 ug/mLFEU (0-0.59)
[2023-06-28 14:00] LABS: Alanine Aminotransferase 36 U/L (0-33); Albumin Level 4.3 g/dL (3.5-5.2); Alkaline Phosphatase 76 U/L (35-105); Anion Gap 16.1 (5-19); Aspartate Amino Transferase 30 U/L (0-32); Blood Urea Nitrogen 13 mg/dL (6-20); Calcium 8.6 mg/dL (8.5-10.5); Carbon Dioxide 23 mmol/L (22-29); Chloride 105 mmol/L (98-107); Creatinine Clr Calc Pharmacy 116.2573; Globulin 3.4 g/dL (1.3-4.6); Glomerular Filtration Rate 75.7 mL/min (90-130); Glucose 105 mg/dL (65-115); Osmolality Calculated 290 mOsm/kg (285-295); Potassium 4.1 mmol/L (3.5-5.1); Sodium 140 mmol/L (136-145); Total Bilirubin 0.2 mg/dL (0.15-1.2); Total Protein 7.7 g/dL (6.6-8.7)
[2023-06-28 14:45] VITALS: BP 142/92; PULSE 73; RESP 18; TEMP 36.7; O2SAT 97
== END 2023-06-28 14:46 | disposition home or self-care (01) ==
PROVIDERS: Emergency Provider Emergency Medicine; PCP Family Medicine
DX: R07.9 Chest pain, unspecified (principal); F17.290 Nicotine dependence, other tobacco product, uncomplicated
CPT/HCPCS: 71045; 80053; 85025; 85378; 93005; 96374; 99285; J1885

== ENCOUNTER → 2023-07-03 07:41 | Outpatient (BNVA) | payer MEDICAID, SELFPAY ==
[2023-05-09 12:05] VITALS: BP 116/78; BMI 39.4
== END ==
PROVIDERS: PCP Family Medicine; Visit Provider Nurse Practitioner Family
DX: R30.0 Dysuria (principal)
CPT/HCPCS: 81000

== ENCOUNTER 2023-08-06 17:45 | Emergency (ER) | payer MEDICAID, SELFPAY ==
[2023-05-09 12:05] VITALS: BP 116/78; BMI 39.4
[2023-08-06 17:47] VITALS: BP 115/77; PULSE 83; RESP 16; TEMP 37; O2SAT 97
--- NOTE | 2023-08-06 17:48 | XRR_ITS ---
PROCEDURE INFORMATION: Exam: XR Chest Exam date and time: 08/06/2023 6:04 PM Age: 28 years old Clinical indication: Shortness of breath; Additional info: SOB TECHNIQUE: Imaging protocol: Radiologic exam of the chest. Views: 1 view. COMPARISON: CR XR chest 1V portable [id number] 06/28/2023 1:25 PM FINDINGS: Lungs: Unremarkable. No consolidation. Pleural spaces: Unremarkable. No pleural effusion. No pneumothorax. Heart/Mediastinum: Unremarkable. No cardiomegaly. Bones/joints: Unremarkable. XR/XR chest 1V portable [id number] IMPRESSION: No acute findings.
--- NOTE | 2023-08-06 17:56 | ECG_ITS ---
[facility] Test Date: 2023-08-06 Pat Name: Carol Solano Department: Room: Gender: Female Neon Technician: : 1995 Requested By: Nicolas Vogel Order Number: [id number] Kerry MD: Michel George M.D. Measurements Intervals [place] Rate: 79 P: 0 DC: 331 QRS: 34 QRSD: 93 T: 35 QT: 348 QTc: 400 Interpretive Statements Sinus rhythm INTERPRETATION BASED ON A DEFAULT AGE OF 40 YEARS Compared to ECG 06/28/2023 11:48:32 No change Electronically Signed On 08-09-2023 13:24:55 CDT by Michel George M.D. [email or web address] [email or web address] river county hospitalBreezy Gardenspromedica bay park hospitalSilk/store/[id number] f
--- NOTE | 2023-08-06 18:06 | ED_ITS ---
Documented by User: SHAY Matias 08/06/23 19:58 HPI - Chest Pain 2 General: Chief Complaint: Chest Pain Stated Complaint: Sob, lungs hurt Time Seen by Provider: 08/06/23 17:57 Source: patient Mode of arrival: ambulatory Limitations: no limitations History of Present Illness: Patient is a 28-year-old female presenting to the emergency department complaining of chest pain for the past 4 days. Patient notes she is also had shortness of breath that has been going on for greater than a month, she has had worked up with primary care. She states she is due to undergo testing for asthma and COPD. When she initially presented to her primary care for the shortness of breath, she was diagnosed with bronchitis and treated with a couple of courses of antibiotics as well as steroid therapy. She states that her shortness of breath has improved, though came back along with the chest pain 4 days ago. The pain is to the right chest and does not radiate. It has been constant since onset and states it is worse with deep breathing. She denies any other pertinent medical history. She denies any other symptoms at this time, including no palpitations, lightheadedness, or syncope. MD complaint: chest pain Onset (ago): day(s) Timing of current episode: constant Prior episodes: No Onset: during rest Pain location: right chest Pain radiation: none Severity: mild Relieving factors: nothing Exacerbating factors: inspiration Associated symptoms: Reports dyspnea; Deny abdominal pain, fever(s), nausea, palpitations or vomiting Review of Systems 2 General: Reports: 10 or more systems reviewed and unremarkable except in HPI and below Const: Denies: fever(s), chills or fatigue Eyes: Denies: change in vision ENMT: Denies: throat pain, ear or mastoid pain or nasal discharge Card: Reports: chest pain; Denies: palpitations, swelling of feet/ankles or lightheadedness Resp: Reports: dyspnea and pain on inspiration; Denies: productive cough or wheezing GI: Denies: abdominal pain, nausea, vomiting, diarrhea or constipation : Denies: flank pain, difficulty voiding, dysuria or urinary frequency Musc: Denies: neck pain, back pain or joint pain Skin/Breast: Denies: rash Neuro: Denies: headache(s), numbness in extremities or weakness in extremities PFSH ED 2 PFSH: Medical History Cannabis use disorder Nicotine use disorder Bipolar 2 disorder On combination antipsychotic drug therapy Psychiatric care Anxiety Depression Gestational diabetes URI (upper respiratory infection) Pharyngitis No significant past medical history Social History Smoking and tobacco/nicotine status: current every day tobacco/nicotine user e- cigarettes Alcohol intake: never Substance/Drug Use: former Adopted: No Caregiver/support person: No Lives independently: No Household members: spouse and children Housing: House Marital status: Number of children: 2 Highest education level completed: High School Graduate service: No Current occupational status: unemployed Pets and animals: No Leisure activites: other 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 Do you think of yourself as: Bisexual Current gender identity: Female Kate/Church: [employer] Special kate needs: No Agree to transfusion: Yes Female Reproductive History: Spontaneous abortions: No Physical Exam 2 Const: COMMON NORMALS: no acute distress, patient oriented x3 and no limitations GENERAL APPEARANCE: cooperative, comfortable and well developed NUTRITIONAL APPEARANCE: obese ORIENTATION/CONSCIOUSNESS: Yes awake, Yes oriented to person, Yes oriented to place and Yes oriented to time HENMT: COMMON NORMALS: normocephalic, atraumatic and hearing grossly normal bilaterally HEAD & SCALP: normocephalic and atraumatic Eye: COMMON NORMALS: Equal, round and reactive pupils present, EOMs intact bilaterally and conjunctivae normal CONJUNCTIVA: Yes conjunctivae normal P UPIL: Yes Equal, round and reactive pupils present Neck/C-Spine: COMMON NORMALS: full ROM, supple and no JVD Chest: OTHER: Reproducible tenderness palpation about the right anterior chest wall Resp: COMMON NORMALS: normal respiratory effort, No retractions, No use of accessory muscles and clear to auscultation bilaterally AUSCULTATION: clear to auscultation bilaterally Cardio: COMMON NORMALS: no JVD, regular rate, regular rhythm, No clicks present (Cardio), No murmurs present (Cardio) and No rub (Cardio) RATE: r egular rate RHYTHM: regular rhythm GI: COMMON NORMALS: Normal to inspection, nondistended, normoactive bowel sounds present, Soft to palpation and non-tender AUSCULTATION: Yes normoactive bowel sounds PALPATION: Yes Soft to palpation RECTAL EXAM: d eferred : COMMON NORMALS: Yes no CVA tenderness BLADDER/KIDNEY EXAM: Yes no CVA tenderness Back/Pelvis: COMMON NORMALS: no CVA tenderness, thoracic and lumbar spine normal to inspection, no thoracic nor lumbar tenderness and thoraco-lumbar ROM normal Extremity: COMMON NORMALS: normal to inspection, full ROM and capillary refill normal Neuro: COMMON NORMALS: patient oriented x3, CN's II-XII intact bilaterally, moves all extremities, no focal motor deficits and no sensory deficits noted SENSORIUM/ORIENTATION: Yes oriented to person, Yes oriented to place and Yes oriented to time Psych: COMMON NORMALS: mental status grossly normal and Normal thought process present THOUGHT PROCESS: Normal thought process present Skin: COMMON NORMALS: no rashes or lesions noted GENERAL SKIN EXAM: no rashes or lesions noted Course 2 Vital Signs: Vital signs: Vital Signs Temperature 98.6 F 08/06/23 17:47 Pulse Rate 80 08/06/23 20:22 Respiratory Rate 20 H 08/06/23 20:22 Blood Pressure 115/77 08/06/23 17:47 Pulse Oximetry 99 08/06/23 20:22 Oxygen Delivery Me thod Room Air 08/06/23 20:04 MDM - Chest Pain Medical Decision Making Patient presents with acute on chronic shortness of breath for the past 1-2 months, now associated with some right chest pain for the past 4 days that has been constant. She has outpatient testing for pulmonology evaluation, due to her recurrence of shortness of breath. On examination, her cardiopulmonary auscultation was negative. There was some reproducible tenderness palpation of the right anterior chest wall. Due to her recurrence of coughing and breathing difficulties, pain is likely a costochondritis, as her lab work, x-ray, and EKG all were unremarkable. Care of patient discussed with supervising ED physician, Dr. Krishna, who agrees with disposition of patient home with strict return precautions. These were given to the patient and she will continue her follow- up as planned. She will additionally take a Profen and Tylenol for her pain. Lab Data 08/06/23 18:19 08/06/23 18:23 Radiology Impressions Chest X-Ray 08/06/23 17:48 IMPRESSION: No acute findings. Laboratory Results WBC 5.13 10^3/uL (3.29-11.43) 08/06/23 18:19 RBC 4.98 10^6/uL (3.85-5.65) 08/06/23 18:19 Hgb 14.60 g/dL (11.27-16.99) 08/06/23 18:19 Hct 44.1 % (36-47) 08/06/23 18:19 MCV 88.6 fl (85-98) 08/06/23 18:19 MCH 29.3 pg (27-33) 08/06/23 18:19 MCHC 33.1 g/dL (30-55) 08/06/23 18:19 RDW 12.7 % (12.1-15.1) 08/06/23 18:19 Plt Count 340 10^3/cmm (157-399) 08/06/23 18:19 MPV 9.6 fL (7.4-10.4) 08/06/23 18:19 Neut % (Auto) 56.5 % 08/06/23 18:19 Lymph % (Auto) 35.5 % 08/06/23 18:19 [place] % (Auto) 5.1 % 08/06/23 18:19 Eos % (Auto) 2.3 % 08/06/23 18:19 Baso % (Auto) 0.4 % 08/06/23 18:19 Neut # (Auto) 2.90 10^3/uL (1.8-7.7) 08/06/23 18:19 Lymph # (Auto) 1.8 10^3/uL (0.8-4.8) 08/06/23 18:19 [place] # (Auto) 0.3 10^3/uL (0.2-0.9) 08/06/23 18:19 Eos # (Auto) 0.1 10^3/uL (0.0-0.8) 08/06/23 18:19 Baso # (Auto) 0.0 10^3/uL (0.0-0.1) 08/06/23 18:19 Nucleated RBC % (auto) 0 % 08/06/23 18:19 Nucleated RBCs # 0.0 /100WBC 08/06/23 18:19 Sodium 141 mmol/L (136-145) 08/06/23 18:23 Potassium 3.9 mmol/L (3.5-5.1) 08/06/23 18: Chloride 106 mmol/L (98-107) 08/06/23 18: Carbon Dioxide 21 mmol/L (22-29) L 08/06/23 18: Anion Gap 17.9 (5-19) 08/06/23 18: BUN 7 mg/dL (6-20) 08/06/23 18: Creatinine 0.7 mg/dL (0.5-0.9) 08/06/23 18: GFR Calculation 101.1 mL/min (90-130) 08/06/23 18: Glucose 101 mg/dL (65-115) 08/06/23 18: Calculated Osmolality 290 mOsm/kg (285-295) 08/06/23 18: Calcium 9.4 mg/dL (8.5-10.5) 08/06/23 18: Total Bilirubin 0.2 mg/dL (0.15-1.2) 08/06/23 18: AST 13 U/L (0-32) 08/06/23 18: ALT 14 U/L (0-33) 08/06/23 18: Alkaline Phosphatase 71 U/L (35-105) 08/06/23 18: Total Protein 8.1 g/dL (6.6-8.7) 08/06/23 18: Albumin 4.7 g/dL (3.5-5.2) 08/06/23 18: Globulin 3.4 g/dL (1.3-4.6) 08/06/23 18: Urine Color Yellow (Yellow) 08/06/23 19:00 Urine Appearance Clear (CLEAR) 08/06/23 19:00 Urine pH 5 (5-7) 08/06/23 19:00 Ur Specific [place] 1.015 (1.005-1.030) 08/06/23 19:00 Urine Protein Neg (Negative) 08/06/23 19:00 Urine Glucose (UA) Norm (Normal) 08/06/23 19:00 Urine Ketones Negative (Negative) 08/06/23 19:00 Urine Blood Neg (Negative) 08/06/23 19:00 Urine Nitrate Negative (Negative) 08/06/23 19:00 Urine Bilirubin Neg (Negative) 08/06/23 19:00 Urine Urobilinogen Norm mg/dL (Negative) 08/06/23 19:00 Ur Leukocyte Esterase Negative (Negative) 08/06/23 19:00 All radiology interpretation(s) finalized by discharge Discharge Plan Discharge Patient Disposition: Home Clinical Impression: Costochondritis Condition: Stable Prescriptions: No Action bupropion HCl [Wellbutrin XL] 300 mg tablet extended release 24 hr 300 mg PO QAM Qty: 30 2RF fluconazole 150 mg tablet 150 mg PO Q3D 0 Days Qty: 2 0RF albuterol sulfate [Ventolin HFA] 90 mcg/actuation HFA aerosol inhaler 2 puff inhalation Q6H PRN (Reason: shortness of breath or wheezing) Qty: 8.5 0RF albuterol sulfate 90 mcg/actuation HFA aerosol inhaler 2 inh INHALATION Q4H PRN (Reason: shortness of breath or wheezing) Qty: 6.7 1RF Discharge Orders: Discharge ED (Routine); Ordered 08/06/23 Ordered By: George Floyd Referrals: Monica Campo DO [Primary Care Provider] - Discharge Diet: Usual diet Discharge Activity: Increase activity as tolerated Patient Instructions: Costochondritis (ED) Activity Restrictions/Additional Instructions: Continue alternating Tylenol and ibuprofen at home. Continue plan for outpatient pulmonology testing as discussed. Return if you develop any new or concerning symptoms. Coding Level of Care Code ED Supervisor Beet End for Chg Fwd Documented by User: Luis Ramirez DO 08/07/23 05:16 HPI - Chest Pain 2 General: Chief Complaint: Chest Pain Stated Complaint: Sob, lungs hurt Time Seen by Provider: 08/06/23 17:57 PFSH ED 2 PFSH: Medical History Cannabis use disorder Nicotine use disorder Bipolar 2 disorder On combination antipsychotic drug therapy Psychiatric care Anxiety Depression Gestational diabetes URI (upper respiratory infection) Pharyngitis No significant past medical history Social History Smoking and tobacco/nicotine status: current every day tobacco/nicotine user e- cigarettes Alcohol intake: never Substance/Drug Use: former Adopted: No Caregiver/support person: No Lives independently: No Household members: spouse and children Housing: House Marital status: Number of children: 2 Highest education level completed: High School Graduate service: No Current occupational status: unemployed Pets and animals: No Leisure activites: other 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 Do you think of yourself as: Bisexual Current gender identity: Female Kate/Church: [employer] Special kate needs: No Agree to transfusion: Yes Course 2 Vital Signs: Vital signs: Vital Signs Temperature 98.6 F 08/06/23 17:47 Pulse Rate 80 08/06/23 20:22 Respiratory Rate 20 H 08/06/23 20:22 Blood Pressure 115/77 08/06/23 17:47 Pulse Oximetry 99 08/06/23 20:22 Oxygen Delivery Me thod Room Air 08/06/23 20:04 MDM - Chest Pain Medical Decision Making Patient presents with acute on chronic shortness of breath for the past 1-2 months, now associated with some right chest pain for the past 4 days that has been constant. She has outpatient testing for pulmonology evaluation, due to her recurrence of shortness of breath. On examination, her cardiopulmonary auscultation was negative. There was some reproducible tenderness palpation of the right anterior chest wall. Due to her recurrence of coughing and breathing difficulties, pain is likely a costochondritis, as her lab work, x-ray, and EKG all were unremarkable. Care of patient discussed with supervising ED physician, Dr. Krishna, who agrees with disposition of patient home with strict return precautions. These were given to the patient and she will continue her follow- up as planned. She will additionally take a Profen and Tylenol for her pain. Chart reviewed Lab Data 08/06/23 18:19 08/06/23 18:23 Radiology Impressions Chest X-Ray 08/06/23 17:48 IMPRESSION: No acute findings. Laboratory Results WBC 5.13 10^3/uL (3.29-11.43) 08/06/23 18:19 RBC 4.98 10^6/uL (3.85-5.65) 08/06/23 18:19 Hgb 14.60 g/dL (11.27-16.99) 08/06/23 18:19 Hct 44.1 % (36-47) 08/06/23 18:19 MCV 88.6 fl (85-98) 08/06/23 18:19 MCH 29.3 pg (27-33) 08/06/23 18:19 MCHC 33.1 g/dL (30-55) 08/06/23 18:19 RDW 12.7 % (12.1-15.1) 08/06/23 18:19 Plt Count 340 10^3/cmm (157-399) 08/06/23 18:19 MPV 9.6 fL (7.4-10.4) 08/06/23 18:19 Neut % (Auto) 56.5 % 08/06/23 18:19 Lymph % (Auto) 35.5 % 08/06/23 18:19 [place] % (Auto) 5.1 % 08/06/23 18:19 Eos % (Auto) 2.3 % 08/06/23 18:19 Baso % (Auto) 0.4 % 08/06/23 18:19 Neut # (Auto) 2.90 10^3/uL (1.8-7.7) 08/06/23 18:19 Lymph # (Auto) 1.8 10^3/uL (0.8-4.8) 08/06/23 18:19 [place] # (Auto) 0.3 10^3/uL (0.2-0.9) 08/06/23 18:19 Eos # (Auto) 0.1 10^3/uL (0.0-0.8) 08/06/23 18:19 Baso # (Auto) 0.0 10^3/uL (0.0-0.1) 08/06/23 18:19 Nucleated RBC % (auto) 0 % 08/06/23 18:19 Nucleated RBCs # 0.0 /100WBC 08/06/23 18:19 Sodium 141 mmol/L (136-145) 08/06/23 18:23 Potassium 3.9 mmol/L (3.5-5.1) 08/06/23 18:23 Chloride 106 mmol/L (98-107) 08/06/23 18: Carbon Dioxide 21 mmol/L (22-29) L 08/06/23 18:23 Anion Gap 17.9 (5-19) 08/06/23 18:23 BUN 7 mg/dL (6-20) 08/06/23 18: Creatinine 0.7 mg/dL (0.5-0.9) 08/06/23 18: GFR Calculation 101.1 mL/min (90-130) 08/06/23 18: Glucose 101 mg/dL (65-115) 08/06/23 18: Calculated Osmolality 290 mOsm/kg (285-295) 08/06/23 18: Calcium 9.4 mg/dL (8.5-10.5) 08/06/23 18: Total Bilirubin 0.2 mg/dL (0.15-1.2) 08/06/23 18: AST 13 U/L (0-32) 08/06/23 18: ALT 14 U/L (0-33) 08/06/23 18: Alkaline Phosphatase 71 U/L (35-105) 08/06/23 18: Total Protein 8.1 g/dL (6.6-8.7) 08/06/23 18: Albumin 4.7 g/dL (3.5-5.2) 08/06/23 18: Globulin 3.4 g/dL (1.3-4.6) 08/06/23 18:23 Urine Color Yellow (Yellow) 08/06/23 19:00 Urine Appearance Clear (CLEAR) 08/06/23 19:00 Urine pH 5 (5-7) 08/06/23 19:00 Ur Specific [place] 1.015 (1.005-1.030) 08/06/23 19:00 Urine Protein Neg (Negative) 08/06/23 19:00 Urine Glucose (UA) Norm (Normal) 08/06/23 19:00 Urine Ketones Negative (Negative) 08/06/23 19:00 Urine Blood Neg (Negative) 08/06/23 19:00 Urine Nitrate Negative (Negative) 08/06/23 19:00 Urine Bilirubin Neg (Negative) 08/06/23 19:00 Urine Urobilinogen Norm mg/dL (Negative) 06/18/24 19:00 Ur Leukocyte Esterase Negative (Negative) 08/06/23 19:00 Discharge Plan Discharge Patient Disposition: Home Clinical Impression: Costochondritis Condition: Stable Prescriptions: No Action bupropion HCl [Wellbutrin XL] 300 mg tablet extended release 24 hr 300 mg PO QAM Qty: 30 2RF fluconazole 150 mg tablet 150 mg PO Q3D 0 Days Qty: 2 0RF albuterol sulfate [Ventolin HFA] 90 mcg/actuation HFA aerosol inhaler 2 puff inhalation Q6H PRN (Reason: shortness of breath or wheezing) Qty: 8.5 0RF albuterol sulfate 90 mcg/actuation HFA aerosol inhaler 2 inh INHALATION Q4H PRN (Reason: shortness of breath or wheezing) Qty: 6.7 1RF Discharge Orders: Discharge ED (Routine); Ordered 08/06/23 Ordered By: George Floyd Referrals: Monica Campo DO [Primary Care Provider] - Discharge Diet: Usual diet Discharge Activity: Increase activity as tolerated Patient Instructions: Costochondritis (ED) Activity Restrictions/Additional Instructions: Continue alternating Tylenol and ibuprofen at home. Continue plan for outpatient pulmonology testing as discussed. Return if you develop any new or concerning symptoms. Coding Level of Care Code ED Supervisor Beet End for Brett Soto
[2023-08-06 18:33] LABS: Basophils % 0.4 %; Eosinophils # 0.1 10^3/uL (0.0-0.8); Eosinophils % 2.3 %; Hematocrit 44.1 % (36-47); Lymphocytes # 1.8 10^3/uL (0.8-4.8); Lymphocytes % 35.5 %; Mean Corpuscular HGB Conc 33.1 g/dL (30-55); Mean Corpuscular Hemoglobin 29.3 pg (27-33); Mean Corpuscular Volume 88.6 fl (85-98); Mean Platelet Volume 9.6 fL (7.4-10.4); Monocytes # 0.3 10^3/uL (0.2-0.9); Monocytes % 5.1 %; Neutrophils % 56.5 %; Nucleated Red Blood Cells % 0 %; Platelet Count 340 10^3/cmm (157-399); Red Blood Count 4.98 10^6/uL (3.85-5.65); Red Cell Distribution Width 12.7 % (12.1-15.1); White Blood Count 5.13 10^3/uL (3.29-11.43)
[2023-08-06 18:49] LABS: Alanine Aminotransferase 14 U/L (0-33); Albumin Level 4.7 g/dL (3.5-5.2); Alkaline Phosphatase 71 U/L (35-105); Anion Gap 17.9 (5-19); Aspartate Amino Transferase 13 U/L (0-32); Blood Urea Nitrogen 7 mg/dL (6-20); Calcium 9.4 mg/dL (8.5-10.5); Carbon Dioxide 21 mmol/L (22-29); Chloride 106 mmol/L (98-107); Creatinine Clr Calc Pharmacy 149.4736; Globulin 3.4 g/dL (1.3-4.6); Glomerular Filtration Rate 101.1 mL/min (90-130); Glucose 101 mg/dL (65-115); Osmolality Calculated 290 mOsm/kg (285-295); Potassium 3.9 mmol/L (3.5-5.1); Sodium 141 mmol/L (136-145); Total Bilirubin 0.2 mg/dL (0.15-1.2); Total Protein 8.1 g/dL (6.6-8.7)
--- NOTE | 2023-08-06 19:04 | PC.NURSE ---
Assumed care from Krystal FERREIRA at this time.
[2023-08-06 19:05] LABS: Add Urine Microscopic? NO; Charge for UA Resulting for Rev
[2023-08-06 19:06] VITALS: PULSE 91; RESP 22; O2SAT 97
[2023-08-06 19:10] LABS: Bilirubin Urine Neg (Negative); Blood Urine Neg (Negative); Glucose Urine UA Norm (Normal); Ketones Urine Negative (Negative); Leukocyte Esterase Urine Negative (Negative); Nitrate Urine Negative (Negative); Protein Urine Neg (Negative); Specific Gravity, Urine 1.015 (1.005-1.030); Urine Appearance Clear (CLEAR); Urine Color Yellow (Yellow); Urobilinogen Urine Norm (Negative); pH Urine 5 (5-7)
[2023-08-06 20:04] VITALS: PULSE 80; RESP 20; O2SAT 99
[2023-08-06 20:22] VITALS: PULSE 80; RESP 20; O2SAT 99
== END 2023-08-06 20:05 | disposition home or self-care (01) ==
PROVIDERS: Emergency Provider Physician Assistant; PCP Family Medicine
DX: M94.0 Chondrocostal junction syndrome [Tietze] (principal); F17.290 Nicotine dependence, other tobacco product, uncomplicated
CPT/HCPCS: 71045; 80053; 81003; 85025; 93005; 99285

== ENCOUNTER 2023-08-27 17:02 | Emergency (ER) | payer MEDICAID, SELFPAY ==
[2023-05-09 12:05] VITALS: BP 116/78; BMI 39.4
[2023-08-27 17:04] VITALS: BP 95/62; PULSE 84; RESP 16; TEMP 36.8; O2SAT 97
--- NOTE | 2023-08-27 17:43 | W.ED.DIZZY ---
HPI - Dizziness General: Chief Complaint: Dizziness Stated Complaint: Diziness Time Seen by Provider: 08/27/23 17:17 Source: patient Mode of arrival: ambulatory Limitations: no limitations History of Present Illness: HPI Narrative: Patient is a 28-year-old female who presents to the emergency department complaining of dizziness onset this morning. Patient states that dizziness began right when she woke up, and is worsened by any sudden movements of her head. She does state that she has some nausea with this. This has been constant since onset. Also is reporting intermittent headaches for the past couple of days, primarily located behind her eyes. She states that normally she has the symptoms during , has never had them while not being . She denies possibility of as she states she is on a Depo shot. She denies any inner ear pain, neurological deficits, or other concerning symptoms at this time. She states that she has not been outside for prolonged periods of time recently and notes adequate hydration. No chest pain, shortness of breath, palpitations, syncope, seizure-like activity, or other symptoms noted at this time. Important to note that she has not taken anything for her symptoms at this time including not trying any medications for vertigo. MD elicited complaint: dizziness Onset (ago): hour(s) Timing: sudden onset Severity: moderate Description: sense of movement Context: change in body position History of similar symptoms: Yes (While ) Exacerbating factors: movement/ambulation and change in body position Relieving factors: remaining still Associated symptoms: Reports no associated symptoms, headache(s) and nausea; Denies chest pain, chills, palpitations or vomiting Associated neuro symptoms: Reports no associated symptoms; Deny confusion or numbness in extremities Review of Systems General: Reports: 10 or more systems reviewed and unremarkable except in HPI and below Const: Denies: fever(s), chills or fatigue Eyes: Denies: change in vision ENMT: Denies: throat pain, ear or mastoid pain or nasal discharge Card: Denies: chest pain, palpitations, swelling of feet/ankles or lightheadedness Resp: Denies: dyspnea, productive cough or wheezing GI: Reports: nausea; Denies: abdominal pain, vomiting, diarrhea or constipation : Denies: flank pain, difficulty voiding, dysuria or urinary frequency Musc: Denies: neck pain, back pain or joint pain Skin/Breast: Denies: rash Neuro: Reports: headache(s) and dizziness; Denies: numbness in extremities, weakness in extremities, sensory changes, difficulty walking, confusion, Slurred speech present, seizure-like activity or involuntary movements PFSH ED PFSH: Medical History Affective disorder Cannabis use disorder Nicotine use disorder Bipolar 2 disorder On combination antipsychotic drug therapy Psychiatric care Anxiety Depression Gestational diabetes URI (upper respiratory infection) Pharyngitis No significant past medical history Social History Smoking and tobacco/nicotine status: current every day tobacco/nicotine user e-cigarettes Alcohol intake: never Substance/Drug Use: former Adopted: No Caregiver/support person: No Lives independently: No Household members: spouse and children Housing: House Marital status: Number of children: 2 Highest education level completed: High School Graduate service: No Current occupational status: unemployed Pets and animals: No Leisure activites: other 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 Do you think of yourself as: Bisexual Current gender identity: Female Kate/Shinto: Tenriism Special kate needs: No Agree to transfusion: Yes Female Reproductive History: Spontaneous abortions: No Physical Exam Const: COMMON NORMALS: no acute distress, patient oriented x3 and no limitations GENERAL APPEARANCE: cooperative, comfortable and well developed NUTRITIONAL APPEARANCE: obese ORIENTATION/CONSCIOUSNESS: Yes awake, Yes oriented to person, Yes oriented to place and Yes oriented to time HENMT: COMMON NORMALS: normocephalic, atraumatic, hearing grossly normal bilaterally, moist oral mucous membranes and oropharynx normal HEAD & SCALP: normocephalic and atraumatic Eye: COMMON NORMALS: Equal, round and reactive pupils present, EOMs intact bilaterally and conjunctivae normal CONJUNCTIVA: Yes conjunctivae normal PUPIL: Yes Equal, round and reactive pupils present Neck/C-Spine: COMMON NORMALS: full ROM, supple and no JVD Resp: COMMON NORMALS: normal respiratory effort, No retractions, No use of accessory muscles and clear to auscultation bilaterally AUSCULTATION: clear to auscultation bilaterally Cardio: COMMON NORMALS: no JVD, regular rate, regular rhythm, No clicks present (Cardio), No murmurs present (Cardio) and No rub (Cardio) RATE: regular rate RHYTHM: regular rhythm GI: COMMON NORMALS: Normal to inspection, nondistended, normoactive bowel sounds present, Soft to palpation and non-tender AUSCULTATION: Yes normoactive bowel sounds PALPATION: Yes Soft to palpation RECTAL EXAM: deferred Extremity: COMMON NORMALS: normal to inspection, full ROM and capillary refill normal Neuro: COMMON NORMALS: patient oriented x3, CN's II-XII intact bilaterally, moves all extremities, no focal motor deficits and no sensory deficits noted SENSORIUM/ORIENTATION: Yes oriented to person, Yes oriented to place and Yes oriented to time Psych: COMMON NORMALS: mental status grossly normal and Normal thought process present THOUGHT PROCESS: Normal thought process present Skin: COMMON NORMALS: no rashes or lesions noted GENERAL SKIN EXAM: no rashes or lesions noted Course Vital Signs: Vital signs: Vital Signs Temperature 98.3 F 08/27/23 17:04 Pulse Rate 84 08/27/23 17:04 Respiratory Rate 16 08/27/23 17:04 Blood Pressure 95/62 08/27/23 17:04 Pulse Oximetry 97 08/27/23 17:04 Oxygen Delivery Me thod Room Air 08/27/23 17:04 MDM - Dizziness Medical Decision Making Patient presented for acute onset of dizziness this morning that was worsened with head movement. Also has been having intermittent headaches for the past couple days. Her orthostatic vital signs were negative. Vitals have been normal throughout her ED course and she was neurologically intact on physical examination. All of her blood work was normal including negative and negative urinalysis. She was given fluids, Zofran, and meclizine here in the emergency department and upon recheck she states that she does feel better. I do believe her dizziness related to BPPV at this time and also she does present with clinical signs and symptoms of a tension type headache. Because of this she is instructed of treatment modalities including Tylenol and ibuprofen for the headache as well as warm compress to the neck. Will send home with meclizine to treat for BPPV and she is informed to follow-up with primary care later this week. Strict return precautions given. Care of patient discussed with Dr. Vogel who agrees with disposition. Lab Data 08/27/23 17:53 08/27/23 17:53 Laboratory Results WBC 5.40 10^3/uL (3.29-11.43) 08/27/23 17:53 RBC 4.70 10^6/uL (3.85-5.65) 08/27/23 17:53 Hgb 13.60 g/dL (11.27-16.99) 08/27/23 17:53 Hct 41.8 % (36-47) 08/27/23 17:53 MCV 88.9 fl (85-98) 08/27/23 17:53 MCH 28.9 pg (27-33) 08/27/23 17:53 MCHC 32.5 g/dL (30-55) 08/27/23 17:53 RDW 12.5 % (12.1-15.1) 08/27/23 17:53 Plt Count 323 10^3/cmm (157-399) 08/27/23 17:53 MPV 9.8 fL (7.4-10.4) 08/27/23 17:53 Neut % (Auto) 54.3 % 08/27/23 17:53 Lymph % (Auto) 34.3 % 08/27/23 17:53 [place] % (Auto) 5.9 % 08/27/23 17:53 Eos % (Auto) 4.6 % 08/27/23 17:53 Baso % (Auto) 0.7 % 08/27/23 17:53 Neut # (Auto) 2.93 10^3/uL (1.8-7.7) 08/27/23 17:53 Lymph # (Auto) 1.9 10^3/uL (0.8-4.8) 08/27/23 17:53 [place] # (Auto) 0.3 10^3/uL (0.2-0.9) 08/27/23 17:53 Eos # (Auto) 0.3 10^3/uL (0.0-0.8) 08/27/23 17:53 Baso # (Auto) 0.0 10^3/uL (0.0-0.1) 08/27/23 17:53 Nucleated RBC % (auto) 0 % 08/27/23 17:53 Nucleated RBCs # 0.0 /100WBC 08/27/23 17:53 Sodium 138 mmol/L (136-145) 08/27/23 17:53 Potassium 4.1 mmol/L (3.5-5.1) 08/27/23 17:53 Chloride 105 mmol/L (98-107) 08/27/23 17:53 Carbon Dioxide 24 mmol/L (22-29) 08/27/23 17:53 Anion Gap 13.1 (5-19) 08/27/23 17:53 BUN 11 mg/dL (6-20) 08/27/23 17:53 Creatinine 0.8 mg/dL (0.5-0.9) 08/27/23 17:53 GFR Calculation 86.7 mL/min (90-130) L 08/27/23 17:53 Glucose 99 mg/dL (65-115) 08/27/23 17:53 Calculated Osmolality 285 mOsm/kg (285-295) 08/27/23 17:53 Calcium 9.0 mg/dL (8.5-10.5) 08/27/23 17:53 Total Bilirubin 0.2 mg/dL (0.15-1.2) 08/27/23 17:53 AST 13 U/L (0-32) 08/27/23 17:53 ALT 12 U/L (0-33) 08/27/23 17:53 Alkaline Phosphatase 59 U/L (35-105) 08/27/23 17:53 Total Protein 7.3 g/dL (6.6-8.7) 08/27/23 17:53 Albumin 4.3 g/dL (3.5-5.2) 08/27/23 17:53 Globulin 3.0 g/dL (1.3-4.6) 08/27/23 17:53 HCG, Qual Negative (Negative) 08/27/23 17:33 Urine Color Yellow (Yellow) 08/27/23 17:33 Urine Appearance Clear (CLEAR) 08/27/23 17:33 Urine pH 7 (5-7) 08/27/23 17:33 Ur Specific [place] 1.010 (1.005-1.030) 08/27/23 17:33 Urine Protein Neg (Negative) 08/27/23 17:33 Urine Glucose (UA) Norm (Normal) 08/27/23 17:33 Urine Ketones Negative (Negative) 08/27/23 17:33 Urine Blood Neg (Negative) 08/27/23 17:33 Urine Nitrate Negative (Negative) 08/27/23 17:33 Urine Bilirubin Neg (Negative) 08/27/23 17:33 Urine Urobilinogen Norm mg/dL (Negative) 08/27/23 17:33 Ur Leukocyte Esterase Negative (Negative) 08/27/23 17:33 No radiology studies performed this visit Discharge Plan Discharge Patient Disposition: Home Clinical Impression: Benign paroxysmal positional vertigo, Tension headache Condition: Stable Prescriptions: New meclizine 50 mg tablet 50 mg PO DAILY Qty: 20 0RF No Action bupropion HCl [Wellbutrin XL] 300 mg tablet extended release 24 hr 300 mg PO QAM Qty: 30 2RF albuterol sulfate [Ventolin HFA] 90 mcg/actuation HFA aerosol inhaler 2 puff inhalation Q6H PRN (Reason: shortness of breath or wheezing) Qty: 8.5 0RF albuterol sulfate 90 mcg/actuation HFA aerosol inhaler 2 inh INHALATION Q4H PRN (Reason: shortness of breath or wheezing) Qty: 6.7 1RF Discharge Orders: Discharge ED (Routine); Ordered 08/27/23 Ordered By: George Floyd Referrals: Monica Campo DO [Primary Care Provider] - Discharge Diet: Usual diet Discharge Activity: Increase activity as tolerated Patient Instructions: Benign Paroxysmal Positional Vertigo (ED) Activity Restrictions/Additional Instructions: Continue drinking plenty of fluids. For your headache please take Tylenol and ibuprofen and apply warm compress to your neck. Take meclizine as prescribed. Follow-up with primary care later this week as discussed. Return with any new or worsening symptoms. Coding Level of Care Code ED [employer] Front Desk Attendant for Brett Soto
[2023-08-27 17:58] LABS: Basophils % 0.7 %; Eosinophils # 0.3 10^3/uL (0.0-0.8); Eosinophils % 4.6 %; Hematocrit 41.8 % (36-47); Lymphocytes # 1.9 10^3/uL (0.8-4.8); Lymphocytes % 34.3 %; Mean Corpuscular HGB Conc 32.5 g/dL (30-55); Mean Corpuscular Hemoglobin 28.9 pg (27-33); Mean Corpuscular Volume 88.9 fl (85-98); Mean Platelet Volume 9.8 fL (7.4-10.4); Monocytes # 0.3 10^3/uL (0.2-0.9); Monocytes % 5.9 %; Neutrophils # 2.93 10^3/uL (1.8-7.7); Neutrophils % 54.3 %; Nucleated Red Blood Cells % 0 %; Platelet Count 323 10^3/cmm (157-399); Red Cell Distribution Width 12.5 % (12.1-15.1)
[2023-08-27] MEDS: sodium chloride 0.9% 1,000 ML 999 ML IV (18:03)
[2023-08-27] MEDS: ondansetron 2 mg/ML SDV 2 mL 4 MG IVP (18:03)
[2023-08-27 18:05] LABS: HCG Qualitative Urine. Negative (Negative)
--- NOTE | 2023-08-27 18:08 | ECG_ITS ---
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 Measurements Intervals [place] Rate: 66 P: 52 WI: 158 QRS: 44 QRSD: 89 T: 37 QT: 359 QTc: 378 Interpretive Statements SINUS RHYTHM Compared to ECG 08/06/2023 17:47:06 No significant changes Electronically Signed On 08-27-2023 23:48:36 CDT by Kirsten Olmstead M.D. [id number]
[2023-08-27] MEDS: meclizine 25 mg tablet PO ×2 (18:11→19:00)
[2023-08-27 18:18] LABS: Alanine Aminotransferase 12 U/L (0-33); Albumin Level 4.3 g/dL (3.5-5.2); Alkaline Phosphatase 59 U/L (35-105); Anion Gap 13.1 (5-19); Aspartate Amino Transferase 13 U/L (0-32); Blood Urea Nitrogen 11 mg/dL (6-20); Carbon Dioxide 24 mmol/L (22-29); Chloride 105 mmol/L (98-107); Creatinine Clr Calc Pharmacy 130.7894; Glomerular Filtration Rate 86.7 mL/min (90-130); Glucose 99 mg/dL (65-115); Osmolality Calculated 285 mOsm/kg (285-295); Potassium 4.1 mmol/L (3.5-5.1); Sodium 138 mmol/L (136-145); Total Bilirubin 0.2 mg/dL (0.15-1.2); Total Protein 7.3 g/dL (6.6-8.7)
[2023-08-27 18:22] LABS: Add Urine Microscopic? NO; Charge for UA Resulting for Rev
[2023-08-27 18:33] LABS: Bilirubin Urine Neg (Negative); Blood Urine Neg (Negative); Glucose Urine UA Norm (Normal); Ketones Urine Negative (Negative); Leukocyte Esterase Urine Negative (Negative); Nitrate Urine Negative (Negative); Protein Urine Neg (Negative); Urine Appearance Clear (CLEAR); Urine Color Yellow (Yellow); Urobilinogen Urine Norm (Negative); pH Urine 7 (5-7)
[2023-08-27 19:49] VITALS: BP 136/86; PULSE 70; RESP 15; O2SAT 99
== END 2023-08-27 19:02 | disposition home or self-care (01) ==
PROVIDERS: Emergency Provider Physician Assistant; PCP Family Medicine
DX: H81.10 Benign paroxysmal vertigo, unspecified ear (principal); G44.209 Tension-type headache, unspecified, not intractable; F17.210 Nicotine dependence, cigarettes, uncomplicated; Z79.899 Other long term (current) drug therapy
CPT/HCPCS: 36415; 80053; 81003; 81025; 85025; 93005; 96374; 99284; J2405; J7030; J8597

== ENCOUNTER 2023-10-29 10:18 | Outpatient (CLI) | payer MEDICAID, SELFPAY ==
[2023-05-09 12:05] VITALS: BP 116/78; BMI 39.4
[2023-09-04 11:00] VITALS: PULSE 78; RESP 18; O2SAT 98
[2023-09-04 11:05] VITALS: PULSE 89
[2023-09-04] MEDS: albuterol 2.5 mg/3 mL Neb INHALATION (11:05)
== END 2023-10-29 10:19 | disposition home or self-care (01) ==
LOC: RT 10:20
PROVIDERS: PCP Family Medicine; Visit Provider Family Medicine
DX: R06.2 Wheezing (principal)
CPT/HCPCS: 94060; J7613

== ENCOUNTER → 2024-01-03 17:17 | Outpatient (BNVA) | payer MEDICAID, SELFPAY ==
[2023-05-09 12:05] VITALS: BP 116/78; BMI 39.4
== END ==
PROVIDERS: PCP Family Medicine
DX: J02.9 Acute pharyngitis, unspecified (principal); J02.0 Streptococcal pharyngitis
CPT/HCPCS: 87071; 87880

== ENCOUNTER 2024-01-24 17:19 | Outpatient (CLI) | payer MEDICAID, SELFPAY ==
[2023-05-09 12:05] VITALS: BP 116/78; BMI 39.4
--- NOTE | 2024-01-24 17:48 | XRR_ITS ---
PROCEDURE INFORMATION: Exam: XR Right Foot Exam date and time: 01/24/2024 5:51 PM Age: 28 years old Clinical indication: Pain; Foot; Right; Additional info: RT foot pain after fall TECHNIQUE: Imaging protocol: Radiologic exam of the right foot. Views: 3 or more views. COMPARISON: No relevant prior studies available. FINDINGS: Bones/joints: Third metatarsal proximal metaphyseal subtle cortical irregularity, consider further evaluation with a CT if clinical concern for fracture in this area exists. Soft tissues: Normal. XR/XR foot RT min 3V* [id number] IMPRESSION: Third metatarsal proximal metaphyseal subtle cortical irregularity, consider further evaluation with a CT if clinical concern for fracture in this area exists.
== END 2024-01-24 17:20 | disposition home or self-care (01) ==
LOC: LAB 17:20 → RAD 17:27
PROVIDERS: PCP Family Medicine; Referring Provider Family Medicine; Visit Provider Family Medicine
DX: M79.671 Pain in right foot (principal); W19.XXXA Unspecified fall, initial encounter; R93.7 Abnormal findings on diagnostic imaging of other parts of musculoskeletal system
CPT/HCPCS: 73630

== ENCOUNTER 2024-02-06 16:00 | Outpatient (CLI) | payer MEDICAID, SELFPAY ==
[2023-05-09 12:05] VITALS: BP 116/78; BMI 39.4
--- NOTE | 2024-02-06 16:00 | CT_ITS ---
WS: [id number] CT RIGHT FOOT, NONCONTRAST HISTORY: RIGHT FOOT PAIN Technique: All CT scans at [facility] use at least one of these dose optimization techniques: automated exposure control; mA and/or kV adjustment per patient size (includes targeted exams where dose is matched to clinical indication); or iterative reconstruction. DLP: 125.73 mGy.cm COMPARISON: Radiograph 01/24/2024 No acute fractures identified. Well-circumscribed accessory ossicle by the anterior calcaneal process . Distal tibia and fibula are intact. No osteochondral lesions. No fracture involving the third metat arsal. Normal alignment at the metatarsal phalangeal joints and the tarsal metatarsal joint. No signi ficant joint effusion. No soft tissue edema. CT/CT foot RT wo con* [id number] IMPRESSION: 1. No acute RIGHT foot fracture. 2. Os calcaneus secundarius, normal accessory ossicle. 3. No joint effusion or edema.
== END 2024-02-06 16:01 | disposition home or self-care (01) ==
PROVIDERS: PCP Family Medicine; Visit Provider Family Medicine
DX: M77.31 Calcaneal spur, right foot (principal); M79.671 Pain in right foot
CPT/HCPCS: 73700

== ENCOUNTER → 2024-02-07 09:11 | Outpatient (BNVA) | payer MEDICAID, SELFPAY ==
[2023-05-09 12:05] VITALS: BP 116/78; BMI 39.4
== END ==
PROVIDERS: PCP Family Medicine; Visit Provider Emergency Medicine
DX: J02.9 Acute pharyngitis, unspecified (principal); F17.200 Nicotine dependence, unspecified, uncomplicated; J40 Bronchitis, not specified as acute or chronic; Z72.0 Tobacco use
CPT/HCPCS: 87071; 87880

== ENCOUNTER → 2024-03-05 14:12 | Outpatient (BNVA) | payer MEDICAID, SELFPAY ==
[2023-05-09 12:05] VITALS: BP 116/78; BMI 39.4
== END ==
PROVIDERS: PCP Family Medicine; Visit Provider Nurse Practitioner Family
DX: J02.9 Acute pharyngitis, unspecified (principal)
CPT/HCPCS: 87880

== ENCOUNTER 2024-03-16 17:33 | Emergency (ER) | payer MEDICAID, SELFPAY ==
[2024-03-16 16:48] VITALS: BP 116/78; BMI 39.4
[2024-03-16 17:39] VITALS: BP 116/74; PULSE 80; RESP 17; TEMP 36.7; O2SAT 97; BMI 40.3
[2024-03-16 18:01] LABS: Bilirubin Urine Negative (Negative); Blood Urine Negative (Negative); Glucose Urine UA Negative (Normal); Ketones Urine Negative (Negative); Leukocyte Esterase Urine Negative (Negative); Nitrate Urine Negative (Negative); Protein Urine Negative (Negative); Specific Gravity, Urine 1.015 (1.005-1.030); Urine Appearance Cloudy (CLEAR); Urine Color Yellow (Yellow); Urobilinogen Urine 0.2 mg/dL (Negative)
[2024-03-16 18:06] LABS: Add Urine Microscopic? YES; Bacteria Urine 2+ /hpf; RBC Urine 0-2 /hpf (0-2); WBC Urine 0-5 /hpf (0-5)
--- NOTE | 2024-03-16 20:29 | CTR_ITS ---
PROCEDURE INFORMATION: Exam: CT Abdomen And Pelvis With Contrast Exam date and time: 03/16/2024 10:12 PM Age: 28 years old Clinical indication: Abdominal pain; Generalized; Additional info: Abd pain TECHNIQUE: Imaging protocol: Computed tomography of the abdomen and pelvis with contrast. Radiation optimization: All CT scans at this facility use at least one of these dose optimization techniques: automated exposure control; mA and/or kV adjustment per patient size (includes targeted exams where dose is matched to clinical indication); or iterative reconstruction. Contrast material: OMNIPAQUE 350; Contrast volume: 100 ml; Contrast route: INTRAVENOUS (IV); COMPARISON: [place] [id number] 02/06/2022 6:31 AM RADIATION DOSE METRICS: Total DLP (mGy-cm): 1014.23 FINDINGS: Lungs: Subsegmental bibasilar atelectasis. The visualized lung bases are otherwise grossly clear. Diaphragm: No evidence of diaphragmatic defect. Liver: Hepatic steatosis. No evidence of focal hepatic lesion. Gallbladder and biliary ducts: Unremarkable. No intra-hepatic or extra-hepatic biliary dilatation. Pancreas: Unremarkable. Spleen: Unremarkable. Adrenal glands: Unremarkable. Kidneys and ureters: No renal parenchymal abnormality. No hydronephrosis or ureteral stone. Stomach and bowel: No evidence of bowel obstruction or perienteric inflammatory changes. Appendix: Normal appendix. Intraperitoneal space: No evidence of free air or fluid collection. Vasculature: No aneurysmal dilatation or dissection of the abdominal aorta. The celiac trunk, SMA and FILIBERTO are grossly patent. No evidence of IVC thrombus. The portal vein, SMV and splenic veins are grossly patent. Lymph nodes: No adenopathy. Urinary bladder: Questionable 8 mm nodule along the anterior bladder wall versus artifact (image 82 of series 3 and image 46 of series 6). Otherwise grossly unremarkable. Reproductive: Grossly unremarkable. Bones/joints: No evidence of acute fracture or aggressive osseous lesion. Soft tissues: No evidence of fluid collection or hematoma in the superficial soft tissues. CT/CT abdomen pelvis w con* [id number] IMPRESSION: 1. No evidence of acute abnormality in the abdomen or pelvis. 2. Questionable 8 mm nodule along the anterior bladder wall versus artifact. Consider follow-up outpatient bladder ultrasound or CT cystogram to exclude a mucosal lesion.
--- NOTE | 2024-03-16 20:36 | ED_ITS ---
HPI - Abdominal Pain 2 General: Chief Complaint: Abdominal Pain Stated Complaint: Pelvic Pain Time Seen by Provider: 03/16/24 20:21 Source: patient Mode of arrival: ambulatory Limitations: no limitations History of Present Illness: 28-year-old female who states that she h as been having lower abdominal pain over the last 4 days states been having cramping sharp pain currently rates it a 2 out of 10 she denies any worse improving factors she denies any fevers denies any dysuria denies any vaginal discharge currently. Associated Symptoms: Denies chills, diarrhea, dysuria, fever(s), nausea and vomiting Related Data Home Medications Medication Instructions Recorded Confirmed famotidine 20 mg tablet 20 mg PO DAILY 03/05/24 03/05/24 levocetirizine 5 mg tablet 5 mg PO DAILY 03/16/24 03/16/24 montelukast 10 mg tablet 10 mg PO DAILY 03/16/24 03/16/24 Previous Rx's Medication Instructions Recorded albuterol sulfate 90 mcg/actuation 2 inh inhalation Q4H PRN shortness 06/03/23 aerosol inhaler of breath or wheezing #6.7 grams albuterol sulfate 90 mcg/actuation 2 puff inhalation Q6H PRN 07/30/23 aerosol inhaler (Ventolin HFA) shortness of breath or wheezing #8.5 grams bupropion HCl 300 mg 24 hr tablet, 300 mg PO QAM #30 tabs 01/02/24 extended release ibuprofen 600 mg tablet 600 mg PO Q8H PRN pain #30 tabs 01/03/24 Allergies Allergy/AdvReac Type Severity Reaction Status Date / Time No Known Allergies Allergy Verified 03/16/24 17:01 Review of Systems 2 Const: Denies: fever(s), chills, body aches or change in appetite Eyes: Denies: eye discomfort ENMT: Denies: throat pain or dental pain Card: Denies: chest pain Resp: Denies: dyspnea GI: Reports: abdominal pain; Denies: nausea, vomiting or diarrhea : Denies: dysuria Musc: Denies: neck pain or back pain Skin/Breast: Denies: rash Neuro: Denies: headache(s) PFSH ED 2 PFSH: Medical History Vapes nicotine containing substance Caffeine dependence Affective disorder Cannabis use disorder Nicotine use disorder Bipolar 2 disorder On combination antipsychotic drug therapy Psychiatric care Anxiety Depression Gestational diabetes URI (upper respiratory infection) Pharyngitis No significant past medical history Social History Smoking and tobacco/nicotine status: tobacco/nicotine user, details unknown e- cigarettes Alcohol intake: never Substance/Drug Use: former Adopted: No Caregiver/support person: No Lives independently: No Household members: spouse and children Housing: House Marital status: Number of children: 2 Highest education level completed: High School Graduate service: No Current occupational status: unemployed Pets and animals: No Leisure activites: other 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 Do you think of yourself as: Bisexual Current gender identity: Female Kate/Uatsdin: Adventism Special kate needs: No Agree to transfusion: Yes Female Reproductive History: Spontaneous abortions: No Physical Exam 2 Const: COMMON NORMALS: no acute distress, patient oriented x3 and healthy appearing HENMT: COMMON NORMALS: normocephalic and atraumatic HEAD & SCALP: n ormocephalic and atraumatic Eye: COMMON NORMALS: conjunctivae normal CONJUNCTIVA: Yes conjunctivae normal Neck/C-Spine: COMMON NORMALS: full ROM and supple Chest: COMMONS NORMALS: normal inspection of the chest and normal palpation of entire chest wall Resp: COMMON NORMALS: normal respiratory effort, No retractions, No use of accessory muscles and clear to auscultation bilaterally AUSCULTATION: clear to auscultation bilaterally Cardio: COMMON NORMALS: regular rate, regular rhythm and No murmurs present (Cardio) RATE: regular rate RHYTHM: regular rhythm GI: COMMON NORMALS: Normal to inspection, nondistended, normoactive bowel sounds present, Soft to palpation and no masses PALPATION: Yes Soft to palpation OTHER: mild lower abd tenderness Extremity: COMMON NORMALS: normal to inspection and full ROM Neuro: COMMON NORMALS: patient oriented x3, moves all extremities and no focal motor deficits Psych: COMMON NORMALS: mental status grossly normal, Normal thought process present and cooperative THOUGHT PROCESS: Normal thought process present Skin: COMMON NORMALS: no rashes or lesions noted and no wounds GENERAL SKIN EXAM: no rashes or lesions noted Course 2 Vital Signs: Vital signs: Vital Signs Temperature 98.0 F 03/16/24 17:39 Pulse Rate 92 03/16/24 21:53 Respiratory Rate 16 03/16/24 21:53 Blood Pressure 120/83 03/16/24 21:53 Pulse Oximetry 98 03/16/24 21:53 Oxygen Delivery Me thod Room Air 03/16/24 21:53 MDM - Abdominal Pain Medical Decision Making Patient presents with abdominal pain imaging showed no acute findings I did inform her of the possible bladder nodule and she is follow-up with her PCP her pains improved here no signs of PID or appendicitis she stable for discharge return if worsening. Medical Records I reviewed the patient's medical records. Lab Data I reviewed the patient's lab results. 03/16/24 21:47 03/16/24 21:47 Labs/Radiology: Radiology Impressions Abdomen/Pelvis CT 03/16/24 20:29 IMPRESSION: 1. No evidence of acute abnormality in the abdomen or pelvis. 2. Questionable 8 mm nodule along the anterior bladder wall versus artifact. Consider follow-up outpatient bladder ultrasound or CT cystogram to exclude a mucosal lesion. Laboratory Results WBC 7.03 10^3/uL (3.29-11.43) 03/16/24 21:47 RBC 4.84 10^6/uL (3.85-5.65) 03/16/24 21:47 Hgb 14.20 g/dL (11.27-16.99) 03/16/24 21:47 Hct 43.3 % (36-47) 03/16/24 21:47 MCV 89.5 fl (85-98) 03/16/24 21:47 MCH 29.3 pg (27-33) 03/16/24 21:47 MCHC 32.8 g/dL (30-55) 03/16/24 21:47 RDW 13.2 % (12.1-15.1) 03/16/24 21:47 Plt Count 324 10^3/cmm (157-399) 03/16/24 21:47 MPV 10.7 fL (7.4-10.4) H 03/16/24 21:47 Neut % (Auto) 57.6 % 03/16/24 21:47 Lymph % (Auto) 31.2 % 03/16/24 21:47 Terry % (Auto) 6.3 % 03/16/24 21:47 Eos % (Auto) 4.4 % 03/16/24 21:47 Baso % (Auto) 0.4 % 03/16/24 21:47 Neut # (Auto) 4.05 10^3/uL (1.8-7.7) 03/16/24 21:47 Lymph # (Auto) 2.2 10^3/uL (0.8-4.8) 03/16/24 21:47 Terry # (Auto) 0.4 10^3/uL (0.2-0.9) 03/16/24 21:47 Eos # (Auto) 0.3 10^3/uL (0.0-0.8) 03/16/24 21:47 Baso # (Auto) 0.0 10^3/uL (0.0-0.1) 03/16/24 21:47 Nucleated RBC % (auto) 0 % 03/16/24 21:47 Nucleated RBCs # 0.0 /100WBC 03/16/24 21:47 Sodium 140 mmol/L (136-145) 03/16/24 21:47 Potassium 3.9 mmol/L (3.5-5.1) 03/16/24 21:47 Chloride 104 mmol/L (98-107) 03/16/24 21:47 Carbon Dioxide 24 mmol/L (22-29) 03/16/24 21:47 Anion Gap 15.9 (5-19) 03/16/24 21:47 BUN 10 mg/dL (6-20) 03/16/24 21:47 Creatinine 0.7 mg/dL (0.5-0.9) 03/16/24 21:47 GFR Calculation 101.1 mL/min (90-130) 03/16/24 21:47 Glucose 90 mg/dL (65-115) 03/16/24 21:47 Calculated Osmolality 289 mOsm/kg (285-295) 03/16/24 21:47 Calcium 9.1 mg/dL (8.5-10.5) 03/16/24 21:47 Total Bilirubin 0.2 mg/dL (0.15-1.2) 03/16/24 21:47 AST 26 U/L (0-32) 03/16/24 21:47 ALT 19 U/L (0-33) 03/16/24 21:47 Alkaline Phosphatase 86 U/L (35-105) 03/16/24 21:47 Total Protein 7.0 g/dL (6.6-8.7) 03/16/24 21:47 Albumin 4.2 g/dL (3.5-5.2) 03/16/24 21:47 Globulin 2.8 g/dL (1.3-4.6) 03/16/24 21:47 Lipase 34 U/L (13-60) 03/16/24 21:47 HCG, Qual Negative (Negative) 03/16/24 17:47 Urine Color Yellow (Yellow) 03/16/24 17:47 Urine Appearance Cloudy (CLEAR) A 03/16/24 17:47 Urine pH 6.0 (5-7) 03/16/24 17:47 Ur Specific [place] 1.015 (1.005-1.030) 03/16/24 17:47 Urine Protein Negative (Negative) 03/16/24 17:47 Urine Glucose (UA) Negative (Normal) 03/16/24 17:47 Urine Ketones Negative (Negative) 03/16/24 17:47 Urine Blood Negative (Negative) 03/16/24 17:47 Urine Nitrate Negative (Negative) 03/16/24 17:47 Urine Bilirubin Negative (Negative) 03/16/24 17:47 Urine Urobilinogen 0.2 mg/dL (Negative) 03/16/24 17:47 Ur Leukocyte Esterase Negative (Negative) 03/16/24 17:47 Urine RBC 0-2 /hpf (0-2) 03/16/24 17:47 Urine WBC 0-5 /hpf (0-5) 03/16/24 17:47 Ur Squamous Epith Cells 6-10 /hpf (0-5) 03/16/24 17:47 Amorphous Sediment Not Reportable 03/16/24 17:47 Urine Bacteria 2+ /hpf (NONE) H 03/16/24 17:47 Hyaline Casts 0.40 /lpf 03/16/24 17:47 All radiology interpretation(s) finalized by discharge Discharge Plan Discharge Patient Disposition: Home Clinical Impression: Abdominal pain Qualifiers: Abdominal location: left lower quadrant Qualified Code(s): R10.32 - Left lower quadrant pain Condition: Stable Prescriptions: No Action ibuprofen 600 mg tablet 600 mg PO Q8H PRN (Reason: pain) Qty: 30 0RF montelukast 10 mg tablet 10 mg PO DAILY levocetirizine 5 mg tablet 5 mg PO DAILY albuterol sulfate [Ventolin HFA] 90 mcg/actuation HFA aerosol inhaler 2 puff inhalation Q6H PRN (Reason: shortness of breath or wheezing) Qty: 8.5 0RF bupropion HCl 300 mg tablet extended release 24 hr 300 mg PO QAM Qty: 30 2RF Rx Instructions: Take one tablet by mouth every morning; stop other doses of this medication famotidine 20 mg tablet 20 mg PO DAILY albuterol sulfate 90 mcg/actuation HFA aerosol inhaler 2 inh INHALATION Q4H PRN (Reason: shortness of breath or wheezing) Qty: 6.7 1RF Discharge Orders: Discharge ED (Routine); Ordered 03/16/24 Ordered By: Nicolas Vogel Referrals: Monica Campo DO [Primary Care Provider] - 4-7 days Discharge Diet: Advance as tolerated Discharge Activity: Resume usual activity Patient Instructions: Abdominal Pain (ED) Activity Restrictions/Additional Instructions: follow up with pcp for sheron work up of bladder nodule Coding Level of Care Code ED Trust Evaluation Supervisor for Brett Soto
[2024-03-16 21:44] LABS: HCG Qualitative Urine. Negative (Negative)
[2024-03-16 21:52] VITALS: O2SAT 97
[2024-03-16] MEDS: ondansetron 2 mg/ML SDV 2 mL 4 MG IVP (21:52)
[2024-03-16] MEDS: morphine 4 mg/mL SDV 1 mL IVP (21:52)
[2024-03-16 21:53] VITALS: BP 120/83; PULSE 92; RESP 16; O2SAT 98
[2024-03-16 21:55] LABS: Basophils % 0.4 %; Eosinophils # 0.3 10^3/uL (0.0-0.8); Eosinophils % 4.4 %; Hematocrit 43.3 % (36-47); Lymphocytes # 2.2 10^3/uL (0.8-4.8); Lymphocytes % 31.2 %; Mean Corpuscular HGB Conc 32.8 g/dL (30-55); Mean Corpuscular Hemoglobin 29.3 pg (27-33); Mean Corpuscular Volume 89.5 fl (85-98); Mean Platelet Volume 10.7 fL (7.4-10.4); Monocytes # 0.4 10^3/uL (0.2-0.9); Monocytes % 6.3 %; Neutrophils # 4.05 10^3/uL (1.8-7.7); Neutrophils % 57.6 %; Nucleated Red Blood Cells % 0 %; Platelet Count 324 10^3/cmm (157-399); Red Blood Count 4.84 10^6/uL (3.85-5.65); Red Cell Distribution Width 13.2 % (12.1-15.1); White Blood Count 7.03 10^3/uL (3.29-11.43)
[2024-03-16] MEDS: iohexol 350 mg/mL 500 mL Btl (per mL) IV (22:13)
[2024-03-16 22:15] LABS: Alanine Aminotransferase 19 U/L (0-33); Albumin Level 4.2 g/dL (3.5-5.2); Alkaline Phosphatase 86 U/L (35-105); Aspartate Amino Transferase 26 U/L (0-32); Blood Urea Nitrogen 10 mg/dL (6-20); Calcium 9.1 mg/dL (8.5-10.5); Carbon Dioxide 24 mmol/L (22-29); Chloride 104 mmol/L (98-107); Creatinine Clr Calc Pharmacy 155.6152; Globulin 2.8 g/dL (1.3-4.6); Glomerular Filtration Rate 101.1 mL/min (90-130); Glucose 90 mg/dL (65-115); Lipase 34 U/L (13-60); Osmolality Calculated 289 mOsm/kg (285-295); Sodium 140 mmol/L (136-145); Total Bilirubin 0.2 mg/dL (0.15-1.2)
[2024-03-16 22:19] LABS: Anion Gap 15.9 (5-19); Potassium 3.9 mmol/L (3.5-5.1)
[2024-03-16 22:51] VITALS: BP 126/99; PULSE 83; RESP 16; O2SAT 98
== END 2024-03-16 22:51 | disposition home or self-care (01) ==
PROVIDERS: Emergency Provider Emergency Medicine; PCP Family Medicine
DX: R10.32 Left lower quadrant pain (principal); F17.290 Nicotine dependence, other tobacco product, uncomplicated
CPT/HCPCS: 36415; 74177; 80053; 81001; 81025; 83690; 85025; 96374; 96375; 99285; J2270; J2405

== ENCOUNTER 2024-03-19 13:39 | Outpatient (CLI) | payer MEDICAID, SELFPAY ==
[2023-05-09 12:05] VITALS: BP 116/78; BMI 39.4
== END 2024-03-19 13:40 | disposition home or self-care (01) ==
LOC: SLEEP 13:40
PROVIDERS: PCP Family Medicine; Visit Provider Family Medicine
DX: G47.19 Other hypersomnia (principal)
CPT/HCPCS: G0399

== ENCOUNTER 2024-04-03 12:50 | Outpatient (CLI) | payer MEDICAID, SELFPAY ==
--- NOTE | 2024-04-03 13:21 | US_ITS ---
WS: [id number] URINARY BLADDER ULTRASOUND HISTORY: LESION OF BLADDER COMPARISON: CT 03/16/2024 Urinary bladder is well distended. No intraluminal filling defect. No free fluid adjacent to the urinary bladder. Nodule seen on CT does not identified within the bladder. This is a very tiny nodule and may not be evident. Bladder Wall Thickness: 0.2 cm. Bladder Prevoid: 6.3 cm x 4.8 cm x 7.8 cm. Prevoid volume: 122.7 ml. Bladder Postvoid: 1.9 cm x 1.1 cm x 1.6 cm. Postvoid volume: 1.8 ml. US/US bladder [id number] IMPRESSION: 1. No bladder mass identified. 2. No post void residual.
== END 2024-04-03 12:51 | disposition home or self-care (01) ==
PROVIDERS: PCP Family Medicine; Visit Provider Family Medicine
DX: N32.9 Bladder disorder, unspecified (principal)
CPT/HCPCS: 76857

== ENCOUNTER 2024-04-30 17:35 | Emergency (ER) | payer MEDICAID, SELFPAY ==
[2024-04-30 17:48] VITALS: BP 120/67; PULSE 76; RESP 17; TEMP 36.7; O2SAT 98; BMI 40.3
--- NOTE | 2024-04-30 19:22 | W.ED.SKABFB ---
HPI - Skin/Abscess/Foreign Bdy General: Chief complaint: Skin/Abscess/Foreign Body Stated complaint: alleragic reations Time Seen by Provider: 04/30/24 19:11 History of Present Illness: 28-year-old female comes in today with itching to the chest. Patient recently increased her dose of sertraline from 50 mg to 100 mg. Since increasing to 100 mg patient reports increased itching. Patient appears nontoxic. Respirations are even. Skin is warm and dry. Related Data Home Medications ?Medication ?Instructions ?Recorded ?Confirmed famotidine 20 mg tablet 20 mg PO DAILY 03/05/24 04/23/24 levocetirizine 5 mg tablet 5 mg PO DAILY 03/16/24 04/23/24 montelukast 10 mg tablet 10 mg PO DAILY 03/16/24 04/23/24 Previous Rx's ?Medication ?Instructions ?Recorded albuterol sulfate 90 mcg/actuation 2 inh inhalation Q4H PRN shortness 06/03/23 aerosol inhaler of breath or wheezing #6.7 grams albuterol sulfate 90 mcg/actuation 2 puff inhalation Q6H PRN 07/30/23 aerosol inhaler (Ventolin HFA) shortness of breath or wheezing #8.5 grams ibuprofen 600 mg tablet 600 mg PO Q8H PRN pain #30 tabs 01/03/24 bupropion HCl 300 mg 24 hr tablet, 300 mg PO QAM #30 tabs 04/23/24 extended release sertraline 100 mg tablet 100 mg PO DAILY #30 tabs 04/23/24 hydrocortisone 2.5 % topical cream 1 applic topical TID PRN skin 04/30/24 irritation #60 grams hydroxyzine HCl 25 mg tablet 25 mg PO QID PRN itching #30 tabs 04/30/24 Allergies Allergy/AdvReac Type Severity Reaction Status Date / Time No Known Allergies Allergy Verified 04/23/24 15:44 Review of Systems General: Reports: 10 or more systems reviewed and unremarkable except in HPI and below PFSH ED PFSH: Medical History (Updated 04/30/24 @ 19:19 by KIERA Dutta) SUE (generalized anxiety disorder) Vapes nicotine containing substance Caffeine dependence Affective disorder Cannabis use disorder Nicotine use disorder Bipolar 2 disorder On combination antipsychotic drug therapy Psychiatric care Anxiety Depression Gestational diabetes URI (upper respiratory infection) Pharyngitis No significant past medical history Social History Smoking and tobacco/nicotine status: tobacco/nicotine user, details unknown e-cigarettes Alcohol intake: never Substance/Drug Use: former Adopted: No Caregiver/support person: No Lives independently: No Household members: spouse and children Housing: House Marital status: Number of children: 2 Highest education level completed: High School Graduate service: No Current occupational status: unemployed Pets and animals: No Leisure activites: other 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 Do you think of yourself as: Bisexual Current gender identity: Female Kate/Oriental Orthodox: Sabianist Special kate needs: No Agree to transfusion: Yes Female Reproductive History: Spontaneous abortions: No Physical Exam Const: COMMON NORMALS: alert HENMT: COMMON NORMALS: normocephalic HEAD & SCALP: normocephalic Neck/C-Spine: COMMON NORMALS: full ROM Resp: COMMON NORMALS: normal respiratory effort and clear to auscultation bilaterally AUSCULTATION: clear to auscultation bilaterally Extremity: COMMON NORMALS: full ROM Neuro: SENSORIUM/ORIENTATION: Yes alert Skin: COMMON NORMALS: turgor normal NARRATIVE SKIN EXAM: No obvious rashes noted. Patient does have some patchy areas of dry skin to the breast. Patient also has some areas of abrasions from scratching to the breast. GENERAL SKIN EXAM: turgor normal Course Vital Signs: Vital signs: Vital Signs Temperature 98.1 F 04/30/24 17:48 Pulse Rate 76 04/30/24 17:48 Respiratory Rate 17 04/30/24 17:48 Blood Pressure 120/67 04/30/24 17:48 Pulse Oximetry 98 04/30/24 17:48 Oxygen Delivery Me thod Room Air 04/30/24 17:48 MDM - Skin/Abscess/Foreign Bdy Medicial Decision Making 28-year-old female comes in today with complaints of itchiness to the chest. On exam patient has patchy dry skin to the chest area. Patient reports this is all come up since increasing her dose of sertraline from 50 mg to 100 mg. Differential diagnosis includes adverse drug effect, serotonin syndrome, contact dermatitis, Arita itch. Recommended patient go ahead and decrease her dose from sertraline from 100 mg to 50 mg. Suspect may be some increase itching secondary to the serotonin levels increasing. No signs of serotonin syndrome otherwise was seen. Patient be given hydroxyzine to help with itching and neurodermatitis. Recommend hydrocortisone otherwise. Patient reports understanding of care plan need for follow-up with primary care or return to ER for worsening symptoms. No radiology studies performed this visit Discharge Plan Discharge Patient Disposition: Home Clinical Impression: Itching Adverse drug effect Qualifiers: Encounter type: initial encounter Qualified Code(s): T50.905A - Adverse effect of unspecified drugs, medicaments and biological substances, initial encounter Condition: Stable Prescriptions: New hydroxyzine HCl 25 mg tablet 25 mg PO QID PRN (Reason: itching) Qty: 30 0RF hydrocortisone 2.5 % cream 1 applic topical TID PRN (Reason: skin irritation) Qty: 60 0RF No Action ibuprofen 600 mg tablet 600 mg PO Q8H PRN (Reason: pain) Qty: 30 0RF montelukast 10 mg tablet 10 mg PO DAILY levocetirizine 5 mg tablet 5 mg PO DAILY bupropion HCl 300 mg tablet extended release 24 hr 300 mg PO QAM Qty: 30 2RF Rx Instructions: Take one tablet by mouth every morning sertraline 100 mg tablet 100 mg PO DAILY Qty: 30 2RF Rx Instructions: Take one tablet by mouth every morning; stop 50 mg dose albuterol sulfate [Ventolin HFA] 90 mcg/actuation HFA aerosol inhaler 2 puff inhalation Q6H PRN (Reason: shortness of breath or wheezing) Qty: 8.5 0RF famotidine 20 mg tablet 20 mg PO DAILY albuterol sulfate 90 mcg/actuation HFA aerosol inhaler 2 inh INHALATION Q4H PRN (Reason: shortness of breath or wheezing) Qty: 6.7 1RF Discharge Orders: Discharge ED (Routine); Ordered 04/30/24 Ordered By: Timoteo Billy Referrals: Monica Campo DO [Primary Care Provider] - Discharge Diet: Usual diet Discharge Activity: Increase activity as tolerated Patient Instructions: Itchy Skin (ED) Activity Restrictions/Additional Instructions: Decrease sertraline to 50 mg/day. Use hydroxyzine 25 mg every 4-6 hours as needed for itching. Drink plenty of water and fluids. Use hydrocortisone cream to the rash for further itch control. Follow-up with primary care for reevaluation and further treatment. Return to ED for new concerns. Print Language: Kyrgyz Coding Level of Care Code ED Tip Finisher for Brett Soto
[2024-04-30] MEDS: hyDROXYzine 25 mg Capsule PO (19:53)
[2024-04-30 19:55] VITALS: BP 120/67; PULSE 76; O2SAT 98
== END 2024-04-30 19:56 | disposition home or self-care (01) ==
PROVIDERS: Emergency Provider Nurse Practitioner Family; PCP Family Medicine
DX: T50.905A Adverse effect of unspecified drugs, medicaments and biological substances, initial encounter (principal); X58.XXXA Exposure to other specified factors, initial encounter; F17.290 Nicotine dependence, other tobacco product, uncomplicated
CPT/HCPCS: 99283; J9999

== ENCOUNTER 2024-06-13 16:19 | Emergency (ER) | payer MEDICAID, SELFPAY ==
[2024-06-13 16:23] VITALS: BP 133/83; PULSE 72; RESP 17; TEMP 36.4; O2SAT 96; BMI 40.7
--- NOTE | 2024-06-13 16:43 | W.ED.ABDPA2 ---
HPI - Abdominal Pain General: Chief Complaint: Abdominal Pain Stated Complaint: dizzy unknow length of pregnacy with cramping Time Seen by Provider: 06/13/24 16:26 History of Present Illness: Patient is a generally well-appearing 29-year-old G3, P2 female seen for pelvic cramping and dizziness. Symptoms been ongoing since this morning at 7 AM. She thinks that she is but does not know how far along she has. She has very erratic menstrual cycles and thinks that she should be roughly 7 weeks but has not received a quantitative hCG test or ultrasound. She denies vaginal discharge or bleeding but states that she feels like she is having very heavy menstrual period cramps. Her dizziness fatigues rapidly when she stops moving and closes her eyes but gets worse when she gets up to try and walk. She denies sensation of lightheadedness, chest pain, shortness of breath, recent sickness or fever, cough, diarrhea, constipation, dysuria or frequency. She did have some nausea and vomiting this morning but attributes that to the . There are no other sick contacts in the home. Related Data Home Medications ?Medication ?Instructions ?Recorded ?Confirmed famotidine 20 mg tablet 20 mg PO DAILY 03/05/24 06/13/24 montelukast 10 mg tablet 10 mg PO DAILY 03/16/24 06/13/24 sertraline 100 mg tablet 50 mg PO DAILY 06/13/24 06/13/24 Previous Rx's ?Medication ?Instructions ?Recorded meclizine 25 mg tablet 25 mg PO TID PRN dizziness #30 tabs 06/13/24 ondansetron 4 mg disintegrating 4 mg PO Q8H 10 days #30 tabs 06/13/24 tablet Allergies Allergy/AdvReac Type Severity Reaction Status Date / Time No Known Allergies Allergy Verified 06/11/24 10:50 [facility] ED PFSH: Medical History (Updated 06/13/24 @ 20:49 by Skyler Saba MD) SUE (generalized anxiety disorder) Vapes nicotine containing substance Caffeine dependence Affective disorder Cannabis use disorder Nicotine use disorder Bipolar 2 disorder On combination antipsychotic drug therapy Psychiatric care Anxiety Depression Gestational diabetes URI (upper respiratory infection) Pharyngitis No significant past medical history Social History Smoking and tobacco/nicotine status: tobacco/nicotine user, details unknown e-cigarettes Alcohol intake: never Substance/Drug Use: former Adopted: No Caregiver/support person: No Lives independently: No Household members: spouse and children Housing: House Marital status: Number of children: 2 Highest education level completed: High School Graduate service: No Current occupational status: unemployed Pets and animals: No Leisure activites: other 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 Do you think of yourself as: Bisexual Current gender identity: Female Kate/Amish: Nondenominational Special kate needs: No Agree to transfusion: Yes Female Reproductive History: Spontaneous abortions: No Physical Exam Const: COMMON NORMALS: no acute distress, patient oriented x3 and alert HENMT: COMMON NORMALS: normocephalic and atraumatic HEAD & SCALP: normocephalic and atraumatic Eye: COMMON NORMALS: Equal, round and reactive pupils present, EOMs intact bilaterally and no scleral icterus PUPIL: Yes Equal, round and reactive pupils present Resp: COMMON NORMALS: normal respiratory effort and No retractions Cardio: COMMON NORMALS: regular rate, regular rhythm and No murmurs present (Cardio) RATE: regular rate RHYTHM: regular rhythm GI: COMMON NORMALS: Normal to inspection, nondistended, normoactive bowel sounds present, Soft to palpation and non-tender PALPATION: Yes Soft to palpation OTHER: Abdomen is appropriately gravid. Fundus not palpable. Neuro: COMMON NORMALS: patient oriented x3 SENSORIUM/ORIENTATION: Yes alert Skin: COMMON NORMALS: no rashes or lesions noted GENERAL SKIN EXAM: no rashes or lesions noted Course Vital Signs: Vital signs: Vital Signs Temperature 97.6 F 06/13/24 16:23 Pulse Rate 69 06/13/24 20:56 Respiratory Rate 17 06/13/24 16:23 Blood Pressure 126/71 06/13/24 20:56 Pulse Oximetry 98 06/13/24 20:56 MDM - Abdominal Pain Medical Decision Making Patient remained hemodynamically stable through ED course. Ultrasound shows a 6-week 1 day single intrauterine gestation which is viable. She has no bleeding or discharge. Urinalysis does not show evidence of infection. Dizziness is better with meclizine. She be discharged in stable condition with referral to [facility] DIRECTOR short course of meclizine for future dizziness and Zofran for nausea. Lab Data 06/13/24 16:54 06/13/24 16:54 Labs/Radiology: Radiology Impressions Obstetrics Ultrasound 06/13/24 17:32 IMPRESSION: 1. Intrauterine with an estimated gestational age 6 weeks 1 day, corresponding to an estimated delivery February 05, 2025. 2. Small subchorionic hemorrhage. Laboratory Results WBC 6.40 10^3/uL (3.29-11.43) 06/13/24 16:54 RBC 4.45 10^6/uL (3.85-5.65) 06/13/24 16:54 Hgb 13.20 g/dL (11.27-16.99) 06/13/24 16:54 Hct 40.1 % (36-47) 06/13/24 16:54 MCV 90.1 fl (85-98) 06/13/24 16:54 MCH 29.7 pg (27-33) 06/13/24 16:54 MCHC 32.9 g/dL (30-55) 06/13/24 16:54 RDW 13.1 % (12.1-15.1) 06/13/24 16:54 Plt Count 251 10^3/cmm (157-399) 06/13/24 16:54 MPV 10.0 fL (7.4-10.4) 06/13/24 16:54 Neut % (Auto) 68.3 % 06/13/24 16:54 Lymph % (Auto) 22.7 % 06/13/24 16:54 [place] % (Auto) 6.7 % 06/13/24 16:54 Eos % (Auto) 1.7 % 06/13/24 16:54 Baso % (Auto) 0.3 % 06/13/24 16:54 Neut # (Auto) 4.37 10^3/uL (1.8-7.7) 06/13/24 16:54 Lymph # (Auto) 1.5 10^3/uL (0.8-4.8) 06/13/24 16:54 [place] # (Auto) 0.4 10^3/uL (0.2-0.9) 06/13/24 16:54 Eos # (Auto) 0.1 10^3/uL (0.0-0.8) 06/13/24 16:54 Baso # (Auto) 0.0 10^3/uL (0.0-0.1) 06/13/24 16:54 Nucleated RBC % (auto) 0 % 06/13/24 16:54 Nucleated RBCs # 0.0 /100WBC 06/13/24 16:54 Sodium 136 mmol/L (136-145) 06/13/24 16:54 Potassium 4.0 mmol/L (3.5-5.1) 06/13/24 16:54 Chloride 103 mmol/L (98-107) 06/13/24 16:54 Carbon Dioxide 24 mmol/L (22-29) 06/13/24 16:54 Anion Gap 13.0 (5-19) 06/13/24 16:54 BUN 10 mg/dL (6-20) 06/13/24 16:54 Creatinine 0.7 mg/dL (0.5-0.9) 06/13/24 16:54 GFR Calculation 100.4 mL/min (90-130) 06/13/24 16:54 Glucose 89 mg/dL (65-115) 06/13/24 16:54 Calculated Osmolality 281 mOsm/kg (285-295) L 06/13/24 16:54 Calcium 8.7 mg/dL (8.5-10.5) 06/13/24 16:54 Total Bilirubin 0.2 mg/dL (0.15-1.2) 06/13/24 16:54 AST 12 U/L (0-32) 06/13/24 16:54 ALT 9 U/L (0-33) 06/13/24 16:54 Alkaline Phosphatase 62 U/L (35-105) 06/13/24 16:54 Total Protein 6.9 g/dL (6.6-8.7) 06/13/24 16:54 Albumin 4.1 g/dL (3.5-5.2) 06/13/24 16:54 Globulin 2.8 g/dL (1.3-4.6) 06/13/24 16:54 Ser , Semi-Qnt 13839.00 mIU/mL 06/13/24 16:54 All radiology interpretation(s) finalized by discharge Discharge Plan Discharge Patient Disposition: Home Clinical Impression: Pelvic cramping, Dizziness Condition: Stable Prescriptions: New ondansetron 4 mg tablet,disintegrating 4 mg PO Q8H 10 Days Qty: 30 0RF meclizine 25 mg tablet 25 mg PO TID PRN (Reason: dizziness) Qty: 30 0RF No Action montelukast 10 mg tablet 10 mg PO DAILY famotidine 20 mg tablet 20 mg PO DAILY sertraline 100 mg tablet 50 mg PO DAILY Discharge Orders: Discharge ED (Routine); Ordered 06/13/24 Ordered By: Skyler Saba Referrals: Monica Campo DO [Primary Care Provider] - Discharge Diet: Advance as tolerated Discharge Activity: Increase activity as tolerated Patient Instructions: at 7 to 10 Weeks (ED) Print Language: Lithuanian Coding Level of Care Code ED Network Communications Engineer for Brett Soto
[2024-06-13] MEDS: meclizine 25 mg tablet 50 MG PO (16:46)
[2024-06-13 17:00] LABS: Basophils % 0.3 %; Eosinophils # 0.1 10^3/uL (0.0-0.8); Eosinophils % 1.7 %; Hematocrit 40.1 % (36-47); Lymphocytes # 1.5 10^3/uL (0.8-4.8); Lymphocytes % 22.7 %; Mean Corpuscular HGB Conc 32.9 g/dL (30-55); Mean Corpuscular Hemoglobin 29.7 pg (27-33); Mean Corpuscular Volume 90.1 fl (85-98); Monocytes # 0.4 10^3/uL (0.2-0.9); Monocytes % 6.7 %; Neutrophils # 4.37 10^3/uL (1.8-7.7); Neutrophils % 68.3 %; Nucleated Red Blood Cells % 0 %; Platelet Count 251 10^3/cmm (157-399); Red Blood Count 4.45 10^6/uL (3.85-5.65); Red Cell Distribution Width 13.1 % (12.1-15.1)
[2024-06-13 17:28] LABS: Alanine Aminotransferase 9 U/L (0-33); Albumin Level 4.1 g/dL (3.5-5.2); Alkaline Phosphatase 62 U/L (35-105); Aspartate Amino Transferase 12 U/L (0-32); Blood Urea Nitrogen 10 mg/dL (6-20); Calcium 8.7 mg/dL (8.5-10.5); Carbon Dioxide 24 mmol/L (22-29); Chloride 103 mmol/L (98-107); Creatinine Clr Calc Pharmacy 149.8914; Globulin 2.8 g/dL (1.3-4.6); Glomerular Filtration Rate 100.4 mL/min (90-130); Glucose 89 mg/dL (65-115); Osmolality Calculated 281 mOsm/kg (285-295); Sodium 136 mmol/L (136-145); Total Bilirubin 0.2 mg/dL (0.15-1.2); Total Protein 6.9 g/dL (6.6-8.7)
--- NOTE | 2024-06-13 17:32 | USR_ITS ---
PROCEDURE INFORMATION: Exam: US First Trimester, Transabdominal and US , Transvaginal Exam date and time: 06/13/2024 6:33 PM Age: 29 years old Clinical indication: Lmp or gestational age (in weeks): 6w1d; Antepartum complications; Other: Cramping; ; Additional info: Pelvic cramping 11k hcg LABS AND CLINICAL REPORTS: Last menstrual period start date: 04/27/2024 Gestational age (Established): 6 w 5 d Estimated due date (Established): 02/01/2025 TECHNIQUE: Imaging protocol: Real-time transabdominal obstetrical ultrasound of the maternal pelvis and a first trimester , less than 14 weeks 0 days, with image documentation. Transvaginal imaging was used for better evaluation of the fetus, adnexa, and/or cervix. COMPARISON: [place] [id number] 02/06/2022 6:31 AM FINDINGS: GESTATION: Gestation: Single yolk sac, rounded in morphology, measuring 2.8 mm. Single pole with crown-rump length measuring 4-5 mm. Embryo/ cardiac activity (BPM): 105 bpm Extra-embryonic membranes/Placenta: Grossly unremarkable. Small subchorionic hemorrhage measuring approximately 1.4 cm. Amniotic/Chorionic fluid: Amniotic and extra-amniotic fluid are normal for gestational age. BIOMETRY: Gestational age (AUA): 6 weeks 1 day Mean sac diameter: 12 mm. EGA (MSD) is 6 w 0 d MATERNAL: Cervix: Cervical length measures 3.4 cm. Right ovary/adnexa: Right ovary measures 2.1 x 1.8 x 1.6 cm. Flow is visualized. No evidence of adnexal mass. Left ovary/adnexa: Left ovary measures 2.5 x 2.0 x 1.9 cm. Flow is visualized. No evidence of adnexal mass. Left-sided corpus luteum cyst measuring 1.8 cm. Intraperitoneal space: No significant pelvic free fluid. US/US OB <=14 wk fetus w transvag IMPRESSION: 1. Intrauterine with an estimated gestational age 6 weeks 1 day, corresponding to an estimated delivery February 05, 2025. 2. Small subchorionic hemorrhage.
[2024-06-13 20:56] VITALS: BP 126/71; PULSE 69; O2SAT 98
--- NOTE | 2024-06-15 09:33 | DCPLANNER ---
messaged wom[facility] to establish fundraising consultant
== END 2024-06-13 20:57 | disposition home or self-care (01) ==
PROVIDERS: Emergency Provider Student in an Organized Health Care Education/Training Program; PCP Family Medicine
DX: R10.9 Unspecified abdominal pain (principal); R42 Dizziness and giddiness; F17.290 Nicotine dependence, other tobacco product, uncomplicated
CPT/HCPCS: 36415; 76801; 76817; 80053; 84702; 85025; 96374; 99285; J8597

== ENCOUNTER 2024-06-18 13:02 | Emergency (ER) | payer MEDICAID, SELFPAY ==
[2024-06-18 13:09] VITALS: BP 115/72; PULSE 62; RESP 18; TEMP 36.7; O2SAT 98
--- NOTE | 2024-06-18 13:41 | ED_ITS ---
HPI - Nausea/Vomiting/Diarrhea 2 General: Chief complaint: Nausea/Vomiting/Diarrhea Stated complaint: vomitting everything Time Seen by Provider: 06/18/24 13:28 Source: patient Mode of arrival: ambulatory Limitations: no limitations History of Present Illness: 29yo G3, P2 female at approximately 7 we eks gestation presents with family for evaluation of nausea/vomiting that has been ongoing for the past 2 days. Patient reports that she has not been able to keep anything down. States she has Zofran at home, but it is not helping. Patient also took meclizine without improvement. She states that she has been vomiting so much that she did have some blood streaks yesterday. Patient has an appointment with [facility] on 06/22. She denies any complications with her 2 previous pregnancies. Patient denies recreational drug use, abdominal pain, fever, cough, congestion, vaginal bleeding, abnormal vaginal discharge. Associated nausea: Yes Associated symtoms: Reports nausea; Denies chest pain, dysuria or headache(s) Related Data Home Medications ?Medication ?Instructions ?Recorded ?Confirmed famotidine 20 mg tablet 20 mg PO DAILY 03/05/2403/14 montelukast 10 mg tablet 10 mg PO DAILY 03/16/24 050 03/14 sertraline 100 mg tablet 50 mg PO DAILY 06/13/2403/14 bupropion HCl 300 mg 24 hr tablet, 300 mg PO QAM 06/1806/18/24 extended release Previous Rx's ?Medication ?Instructions ?Recorded meclizine 25 mg tablet 25 mg PO TID PRN dizziness # 30 tabs 06/13/24 ondansetron 4 mg disintegrating 4 mg PO Q8H 10 days #3 0 tabs 06/13/24 tablet metoclopramide HCl 10 mg tablet 10 mg PO Q6H PRN nause a and 06/18/24 vomiting #30 tabs multivitamin no.51-ferrous 1 cap PO DAILY #30 caps 03/14 fumarate 106.5 mg-folic acid 1 mg capsule (-U) Allergies Allergy/AdvReac Type Severity Reaction Status Date / Time No Known Allergies Allergy Verified 06/11/24 10:50 Review of Systems 2 Const: Denies: fever(s) Card: Denies: chest pain Resp: Denies: dyspnea or productive cough GI: Reports: nausea and vomiting; Denies: abdominal pain or diarrhea : Denies: flank pain, difficulty voiding or dysuria Musc: Denies: neck pain or back pain Neuro: Denies: headache(s) PFSH ED 2 PFSH: Medical History (Updated 06/18/24 @ 16:28 by KIERA Meyers) SUE (generalized anxiety disorder) Vapes nicotine containing substance Caffeine dependence Affective disorder Cannabis use disorder Nicotine use disorder Bipolar 2 disorder On combination antipsychotic drug therapy Psychiatric care Anxiety Depression Gestational diabetes URI (upper respiratory infection) Pharyngitis No significant past medical history Social History Smoking and tobacco/nicotine status: tobacco/nicotine user, details unknown e- cigarettes Alcohol intake: never Substance/Drug Use: former Adopted: No Caregiver/support person: No Lives independently: No Household members: spouse and children Housing: House Marital status: Number of children: 2 Highest education level completed: High School Graduate service: No Current occupational status: unemployed Pets and animals: No Leisure activites: other 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 She is sitting upright on the stretcher in no acute distress. She is able to give history with no difficulty. She is interactive with exam appropriately. Family is at bedside HENMT: COMMON NORMALS: normocephalic and atraumatic HEAD & SCALP: n ormocephalic and atraumatic Neck/C-Spine: COMMON NORMALS: full ROM Chest: CHEST: Yes Symmetrical chest wall rise Resp: COMMON NORMALS: normal respiratory effort, No use of accessory muscles and clear to auscultation bilaterally EFFORT & INSPECTION: Yes able to speak in complete sentences AUSCULTATION: clear to auscultation bilaterally Cardio: COMMON NORMALS: regular rate and regular rhythm RATE: regular rate RHYTHM: regular rhythm GI: COMMON NORMALS: Soft to palpation and non-tender PALPATION: Yes Soft to palpation : COMMON NORMALS: Yes no CVA tenderness BLADDER/KIDNEY EXAM: Yes no CVA tenderness Back/Pelvis: COMMON NORMALS: no CVA tenderness Extremity: COMMON NORMALS: full ROM (MAEW) Neuro: COMMON NORMALS: patient oriented x3 SENSORIUM/ORIENTATION: Yes alert Psych: COMMON NORMALS: cooperative Course 2 Reevaluation(s): Reevaluation #1: Patient states she is feeling much better. She is ready to try crackers and water. Will reevaluate after p.o. challenge Time: 15:45 Reevaluation #2: Patient has had no vomiting and her nausea has improved after medication administration. She is tolerating crackers and water with no difficulty. If able, will collect new urine sample for urine culture as the first was contaminated, then proceed with discharge Time: 16:22 Vital Signs: Vital signs: Vital Signs Temperature 98.0 F 06/18/24 13:09 Pulse Rate 86 06/18/24 14:12 Respiratory Rate 18 06/18/24 13:09 Blood Pressure 129/81 06/18/24 14:12 Pulse Oximetry 95 06/18/24 14:12 Oxygen Delivery Me thod Room Air 06/18/24 13:09 MDM - Nausea/Vomiting/Diarrhea Medical Decision Making 29yo G3, P2 female at approximately 7 weeks gestation presents with family for evaluation of nausea/vomiting that has been ongoing for the past 2 days. Patient reports that she has not been able to keep anything down. States she has Zofran at home, but it is not helping. Patient also took meclizine without improvement. She states that she has been vomiting so much that she did have some blood streaks yesterday. Patient has an appointment with [facility] on 06/22. She denies any complications with her 2 previous pregnancies. Patient denies recreational drug use, abdominal pain, fever, cough, congestion, vaginal bleeding, abnormal vaginal discharge. Patient is nontoxic in appearance. Vital signs are stable. No leukocytosis, white blood cell count noted to be 5.67. No anemia, hemoglobin is 13.7. No significant electrolyte abnormalities. No renal or hepatic abnormalities noted. hCG quant is 33,222. UA with 1+ protein, 4+ ketones, 1+ leukocyte esterase, 1+ bacteria, but contaminated with 15-25 epithelial cells. If patient is able, will recollect a urine for urine culture to determine if an actual UTI or just contamination. Patient was able to tolerate water and crackers after metoclopramide and 1 L normal saline bolus. Prescription of metoclopramide was sent to patient's pharmacy. Recommend she keep her previously scheduled appointment with OB on 06/22/2024. Return precautions provided. Patient and family state understanding and have no further questions or concerns at this time. Lab Data I reviewed the patient's lab results. 06/18/24 13:48 06/18/24 13:48 Laboratory Results WBC 5.67 10^3/uL (3.29-11.43) 06/18/24 13:48 RBC 4.61 10^6/uL (3.85-5.65) 06/18/24 13:48 Hgb 13.70 g/dL (11.27-16.99) 06/18/24 13:48 Hct 40.8 % (36-47) 06/18/24 13:48 MCV 88.5 fl (85-98) 06/18/24 13:48 MCH 29.7 pg (27-33) 06/18/24 13:48 MCHC 33.6 g/dL (30-55) 06/18/24 13:48 RDW 12.7 % (12.1-15.1) 06/18/24 13:48 Plt Count 229 10^3/cmm (157-399) 06/18/24 13:48 MPV 10.0 fL (7.4-10.4) 06/18/24 13:48 Neut % (Auto) 67.8 % 06/18/24 13:48 Lymph % (Auto) 23.8 % 06/18/24 13:48 [place] % (Auto) 6.0 % 06/18/24 13:48 Eos % (Auto) 1.8 % 06/18/24 13:48 Baso % (Auto) 0.4 % 06/18/24 13:48 Neut # (Auto) 3.85 10^3/uL (1.8-7.7) 06/18/24 13:48 Lymph # (Auto) 1.4 10^3/uL (0.8-4.8) 06/18/24 13:48 [place] # (Auto) 0.3 10^3/uL (0.2-0.9) 06/18/24 13:48 Eos # (Auto) 0.1 10^3/uL (0.0-0.8) 06/18/24 13:48 Baso # (Auto) 0.0 10^3/uL (0.0-0.1) 06/18/24 13:48 Nucleated RBC % (auto) 0 % 06/18/24 13:48 Nucleated RBCs # 0.0 /100WBC 06/18/24 13:48 Sodium 136 mmol/L (136-145) 06/18/24 13:48 Potassium 4.0 mmol/L (3.5-5.1) 06/18/24 13:48 Chloride 104 mmol/L (98-107) 06/18/24 13:48 Carbon Dioxide 20 mmol/L (22-29) L 06/18/24 13:48 Anion Gap 16.0 (5-19) 06/18/24 13:48 BUN 6 mg/dL (6-20) 06/18/24 13:48 Creatinine 0.6 mg/dL (0.5-0.9) 06/18/24 13:48 GFR Calculation 119.9 mL/min (90-130) 06/18/24 13:48 Glucose 83 mg/dL (65-115) 06/18/24 13:48 Calculated Osmolality 279 mOsm/kg (285-295) L 06/18/24 13:48 Calcium 8.8 mg/dL (8.5-10.5) 06/18/24 13:48 Total Bilirubin 0.4 mg/dL (0.15-1.2) 06/18/24 13:48 AST 16 U/L (0-32) 06/18/24 13:48 ALT 12 U/L (0-33) 06/18/24 13:48 Alkaline Phosphatase 57 U/L (35-105) 06/18/24 13:48 Total Protein 7.2 g/dL (6.6-8.7) 06/18/24 13:48 Albumin 4.0 g/dL (3.5-5.2) 06/18/24 13:48 Globulin 3.2 g/dL (1.3-4.6) 06/18/24 13:48 Lipase 13 U/L (13-60) 06/18/24 13:48 Ser , Semi-Qnt 33450.00 mIU/mL 06/18/24 13:48 Urine Color Dark yellow (Yellow) A 06/18/24 14:10 Urine Appearance Turbid (CLEAR) A 06/18/24 14:10 Urine pH 6.0 (5-7) 06/18/24 14:10 Ur Specific [place] 1.026 (1.005-1.030) 06/18/24 14:10 Urine Protein 1+ (Negative) A 06/18/24 14:10 Urine Glucose (UA) Negative (Normal) 06/18/24 14:10 Urine Ketones 4+ (Negative) 06/18/24 14:10 Urine Blood Negative (Negative) 06/18/24 14:10 Urine Nitrate Negative (Negative) 06/18/24 14:10 Urine Bilirubin Negative (Negative) 06/18/24 14:10 Urine Urobilinogen 1.0 mg/dL (Negative) 06/18/24 14:10 Ur Leukocyte Esterase 1+ (Negative) A 06/18/24 14:10 Urine RBC 0-4 /hpf (0-2) H 06/18/24 14:10 Urine WBC 5-10 /hpf (0-5) H 06/18/24 14:10 Ur Squamous Epith Cells 15-25 /hpf (0-5) H 06/18/24 14:10 Amorphous Sediment Not Reportable 06/18/24 14:10 Urine Bacteria 1+ /hpf (NONE) H 06/18/24 14:10 Hyaline Casts Not Reportable 06/18/24 14:10 Urine Mucus Trace /hpf 06/18/24 14:10 No radiology studies performed this visit Discharge Plan Discharge Patient Disposition: Home Clinical Impression: Nausea and vomiting during Condition: Stable Prescriptions: New metoclopramide HCl 10 mg tablet 10 mg PO Q6H PRN (Reason: nausea and vomiting) Qty: 30 0RF -U 106.5-1 mg capsule 1 cap PO DAILY Qty: 30 0RF No Action montelukast 10 mg tablet 10 mg PO DAILY famotidine 20 mg tablet 20 mg PO DAILY bupropion HCl 300 mg tablet extended release 24 hr 300 mg PO QAM sertraline 100 mg tablet 50 mg PO DAILY ondansetron 4 mg tablet,disintegrating 4 mg PO Q8H 10 Days Qty: 30 0RF meclizine 25 mg tablet 25 mg PO TID PRN (Reason: dizziness) Qty: 30 0RF Discharge Orders: Discharge ED (Routine); Ordered 06/18/24 Ordered By: Rob Galindo Referrals: Monica Campo DO [Primary Care Provider, [facility]] Discharge Diet: Advance as tolerated Discharge Activity: Resume usual activity Patient Instructions: Nausea and Vomiting in (ED) Activity Restrictions/Additional Instructions: Metoclopramide has been sent to the pharmacy to help with nausea/vomiting You may also use [id number] vitamin B6 to help with nausea/vomiting Please continue to monitor your symptoms closely Keep your previously scheduled appointment with [facility] for 06/22/2024 Return to the emergency department if any rapid worsening symptoms, persistent vomiting, and as needed Print Language: Palauan Coding Level of Care Code ED Automation Tech for Brett Soto
[2024-06-18] MEDS: sodium chloride 0.9% 1,000 ML 999 ML IV (13:49)
[2024-06-18] MEDS: metoclopramide 5 mg/mL SDV 2 mL 10 MG XX (13:49)
[2024-06-18 13:55] LABS: Basophils % 0.4 %; Eosinophils # 0.1 10^3/uL (0.0-0.8); Eosinophils % 1.8 %; Hematocrit 40.8 % (36-47); Lymphocytes # 1.4 10^3/uL (0.8-4.8); Lymphocytes % 23.8 %; Mean Corpuscular HGB Conc 33.6 g/dL (30-55); Mean Corpuscular Hemoglobin 29.7 pg (27-33); Mean Corpuscular Volume 88.5 fl (85-98); Monocytes # 0.3 10^3/uL (0.2-0.9); Neutrophils # 3.85 10^3/uL (1.8-7.7); Neutrophils % 67.8 %; Nucleated Red Blood Cells % 0 %; Platelet Count 229 10^3/cmm (157-399); Red Blood Count 4.61 10^6/uL (3.85-5.65); Red Cell Distribution Width 12.7 % (12.1-15.1); White Blood Count 5.67 10^3/uL (3.29-11.43)
[2024-06-18 14:12] VITALS: BP 129/81; PULSE 86; O2SAT 95
[2024-06-18 14:20] LABS: Bilirubin Urine Negative (Negative); Blood Urine Negative (Negative); Glucose Urine UA Negative (Normal); Ketones Urine 4+ (Negative); Leukocyte Esterase Urine 1+ (Negative); Nitrate Urine Negative (Negative); Protein Urine 1+ (Negative); Specific Gravity, Urine 1.026 (1.005-1.030); Urine Appearance Turbid (CLEAR); Urine Color Dark Yellow (Yellow)
[2024-06-18 14:23] LABS: Alanine Aminotransferase 12 U/L (0-33); Alkaline Phosphatase 57 U/L (35-105); Aspartate Amino Transferase 16 U/L (0-32); Blood Urea Nitrogen 6 mg/dL (6-20); Calcium 8.8 mg/dL (8.5-10.5); Carbon Dioxide 20 mmol/L (22-29); Chloride 104 mmol/L (98-107); Creatinine Clr Calc Pharmacy 174.8733; Globulin 3.2 g/dL (1.3-4.6); Glomerular Filtration Rate 119.9 mL/min (90-130); Glucose 83 mg/dL (65-115); Lipase 13 U/L (13-60); Osmolality Calculated 279 mOsm/kg (285-295); Sodium 136 mmol/L (136-145); Total Bilirubin 0.4 mg/dL (0.15-1.2); Total Protein 7.2 g/dL (6.6-8.7)
[2024-06-18 14:25] LABS: Add Urine Microscopic? YES
[2024-06-18 14:42] LABS: UA Slide Review UA Slide Review Perf
[2024-06-18 14:43] LABS: Bacteria Urine 1+ /hpf; Mucus Urine TRACE /hpf; RBC Urine 0-4 /hpf (0-2); Squamous Epithelial Cell Urine 15-25 /hpf (0-5); UA Manual Slide Review YES
[2024-06-18 16:55] VITALS: BP 135/74; PULSE 78; O2SAT 97
== END 2024-06-18 16:58 | disposition home or self-care (01) ==
PROVIDERS: Emergency Provider Nurse Practitioner; PCP Family Medicine
DX: O21.9 Vomiting of pregnancy, unspecified (principal); Z3A.01 Less than 8 weeks gestation of pregnancy; F17.290 Nicotine dependence, other tobacco product, uncomplicated
CPT/HCPCS: 80053; 81001; 83690; 84702; 85025; 87086; 96374; 99284; J2765; J7030

== ENCOUNTER → 2024-06-22 09:42 | Outpatient (BNVA) | payer MEDICAID, SELFPAY | PROVIDERS: PCP Family Medicine; Visit Provider Nurse Practitioner Women's Health | DX: Z34.90 Encounter for supervision of normal pregnancy, unspecified, unspecified trimester (principal) | CPT/HCPCS: 84315 ==

== ENCOUNTER → 2024-07-21 09:48 | Outpatient (BNVA) | payer MEDICAID, SELFPAY | PROVIDERS: PCP Family Medicine; Visit Provider Nurse Practitioner Women's Health | DX: Z34.90 Encounter for supervision of normal pregnancy, unspecified, unspecified trimester (principal) | CPT/HCPCS: 80307; 82950; 84315; 84443; 85025; 86592; 86762; 86803; 86850; 86900; 87086; 87340; 87491; 87591; 87661; 87806 ==

== ENCOUNTER 2024-07-22 16:04 | Emergency (ER) | payer MEDICAID, SELFPAY ==
[2024-07-22 16:30] VITALS: BP 110/78; PULSE 67; RESP 14; TEMP 36.7; O2SAT 100
[2024-07-22 17:10] LABS: Basophils % 0.2 %; Eosinophils % 0.5 %; Hematocrit 40.8 % (36-47); Lymphocytes # 1.3 10^3/uL (0.8-4.8); Mean Corpuscular HGB Conc 33.3 g/dL (30-55); Mean Corpuscular Hemoglobin 29.5 pg (27-33); Mean Corpuscular Volume 88.5 fl (85-98); Mean Platelet Volume 10.2 fL (7.4-10.4); Monocytes # 0.4 10^3/uL (0.2-0.9); Monocytes % 5.3 %; Neutrophils # 6.24 10^3/uL (1.8-7.7); Neutrophils % 77.8 %; Nucleated Red Blood Cells % 0 %; Platelet Count 238 10^3/cmm (157-399); Red Blood Count 4.61 10^6/uL (3.85-5.65); White Blood Count 8.04 10^3/uL (3.29-11.43)
[2024-07-22 17:29] LABS: Alanine Aminotransferase 7 U/L (0-33); Albumin Level 4.2 g/dL (3.5-5.2); Alkaline Phosphatase 55 U/L (35-105); Anion Gap 17.7 (5-19); Aspartate Amino Transferase 13 U/L (0-32); Blood Urea Nitrogen 6 mg/dL (6-20); Calcium 9.3 mg/dL (8.5-10.5); Carbon Dioxide 19 mmol/L (22-29); Chloride 104 mmol/L (98-107); Creatinine Clr Calc Pharmacy 208.3954; Globulin 3.2 g/dL (1.3-4.6); Glucose 83 mg/dL (65-115); Lipase 21 U/L (13-60); Osmolality Calculated 281 mOsm/kg (285-295); Potassium 3.7 mmol/L (3.5-5.1); Sodium 137 mmol/L (136-145); Total Bilirubin 0.4 mg/dL (0.15-1.2); Total Protein 7.4 g/dL (6.6-8.7)
[2024-07-22 17:32] LABS: HCG, Serum Qual Positive (Negative)
--- NOTE | 2024-07-22 20:43 | ED_ITS ---
HPI - Nausea/Vomiting/Diarrhea 2 General: Chief complaint: Nausea/Vomiting/Diarrhea Stated complaint: nausea Time Seen by Provider: 07/22/24 20:26 Source: patient Mode of arrival: ambulatory Limitations: no limitations History of Present Illness: Patient is a 29-year-old female at approximately 12 weeks presenting to the ED today with concerns of nausea and vomiting. Patient states she has had nausea and vomiting throughout her . At one point was on Zofran but is not taking Reglan at home but even this is not helping. Patient states she has been here in the emergency department during this for concerns of nausea and vomiting. OB provider is Dr. Rios. She is having some generalized cramping. She is not having any vaginal bleeding. MD elicited complaint: nausea and vomiting Onset (ago): week(s) Associated nausea: Yes Pain consistency: intermittent Severity: mild Quality: cramping Exacerbating factors: none Relieving factors: none Associated symtoms: Reports nausea; Denies chest pain, dizziness, dysuria, fatigue, headache(s) or malaise Related Data Previous Rx's ?Medication ?Instructions ?Recorded multivitamin no.51-ferrous 1 cap PO DAILY #30 caps 03/14 fumarate 106.5 mg-folic acid 1 mg capsule (-U) cetirizine 10 mg tablet (Allergy 10 mg PO DAILY PRN co ngestion #30 07/02/24 Relief (cetirizine)) tabs fluticasone propionate 50 2 spray intranasal DAILY #16 grams 07/02/24 mcg/actuation nasal spray,suspension (Flonase Allergy Relief) promethazine-DM 6.25 mg-15 mg/5 mL 5 ml PO Q4H PRN cou gh #118 mL 07/02/24 oral syrup metoclopramide HCl 10 mg tablet 10 mg PO Q6H PRN nause a and 07/21/24 vomiting #30 tabs sertraline 50 mg tablet 50 mg PO DAILY #30 tabs 05/12 Allergies Allergy/AdvReac Type Severity Reaction Status Date / Time No Known Allergies Allergy Verified 07/22/24 16:34 Review of Systems 2 Const: Denies: fever(s), chills, body aches, fatigue or malaise Card: Denies: chest pain Resp: Denies: dyspnea GI: Reports: abdominal pain (mild cramping), nausea, vomiting and GI cramping; Denies: hematemesis or change in bowel habits : Denies: flank pain, difficulty voiding, dysuria, urinary frequency, urinary urgency, urinary hesitancy or vaginal bleeding Musc: Denies: neck pain, back pain, extremity pain, extremity swelling or joint swelling Skin/Breast: Denies: rash Neuro: Denies: headache(s) or dizziness PFSH ED 2 PFSH: Medical History PROM (premature rupture of membranes) SUE (generalized anxiety disorder) Vapes nicotine containing substance Caffeine dependence Affective disorder Cannabis use disorder Nicotine use disorder Bipolar 2 disorder On combination antipsychotic drug therapy Psychiatric care Anxiety Depression Gestational diabetes URI (upper respiratory infection) Pharyngitis No significant past medical history Family History Denies family history of Colon cancer Ovarian cancer Diabetes Heart disease Hyperlipidemia Breast cancer Uterine cancer Thyroid disease Stroke Social History Smoking and tobacco/nicotine status: former use of tobacco/nicotine (quit May 2024) Alcohol intake: never Substance/Drug Use: former Adopted: No Caregiver/support person: No Lives independently: No Household members: spouse and children Housing: House Marital status: Number of children: 2 Highest education level completed: High School Graduate service: No Current occupational status: unemployed Pets and animals: No Leisure activites: other 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 Do you think of yourself as: Bisexual Current gender identity: Female Kate/Judaism: Tenriism Special kate needs: No Agree to transfusion: Yes Female Reproductive History: Spontaneous abortions: No Physical Exam 2 Const: COMMON NORMALS: no acute distress, no limitations, alert and well nourished GENERAL APPEARANCE: cooperative NUTRITIONAL APPEARANCE: obese (BMI over 40) Resp: COMMON NORMALS: normal respiratory effort and clear to auscultation bilaterally AUSCULTATION: clear to auscultation bilaterally Cardio: COMMON NORMALS: regular rate and regular rhythm RATE: regular rate RHYTHM: regular rhythm GI: COMMON NORMALS: Normal to inspection, nondistended, normoactive bowel sounds present, Soft to palpation, No hepatosplenomegaly present and no masses INSPECTION: Yes normal to inspection AUSCULTATION: Yes normoactive bowel sounds PALPATION: Yes Soft to palpation, Yes Tenderness to palpation present (GI) (mild generalized tenderness-non surgical), No Guarding due to palpation present (GI), No Rigid due to palpation and Yes No hepatosplenomegaly present OTHER: Bedside ultrasound performed showing a live/active fetus with normal heart rate : COMMON NORMALS: Yes no CVA tenderness BLADDER/KIDNEY EXAM: Yes no CVA tenderness Back/Pelvis: COMMON NORMALS: no CVA tenderness and thoracic and lumbar spine normal to inspection Extremity: GENERAL: Yes normal exam except as noted Neuro: COMMON NORMALS: moves all extremities, no focal motor deficits and no sensory deficits noted SENSORIUM/ORIENTATION: Yes alert Skin: COMMON NORMALS: no rashes or lesions noted GENERAL SKIN EXAM: no rashes or lesions noted Course 2 Vital Signs: Vital signs: Vital Signs Temperature 98.1 F 07/22/24 16:30 Pulse Rate 67 07/22/24 16:30 Respiratory Rate 14 07/22/24 16:30 Blood Pressure 110/78 07/22/24 16:30 Pulse Oximetry 100 07/22/24 16:30 Oxygen Delivery Me thod Room Air 07/22/24 16:30 MDM - Nausea/Vomiting/Diarrhea Medical Decision Making Patient feels much better after IV fluids and Reglan. She is drinking water without difficulty. She is not having any abdominal or pelvic cramping at this time. No vaginal bleeding. Bedside ultrasound showing a live IUP. Her blood work is unremarkable. Vital signs are stable. UA is grossly contaminated. She is not having any UTI-like symptoms. Return ED precautions given. Otherwise she can follow-up with OB. Medical Records I reviewed the patient's medical records. Lab Data I reviewed the patient's lab results. 07/22/24 16:46 07/22/24 16:46 Laboratory Results WBC 8.04 10^3/uL (3.29-11.43) 07/22/24 16:46 RBC 4.61 10^6/uL (3.85-5.65) 07/22/24 16:46 Hgb 13.60 g/dL (11.27-16.99) 07/22/24 16:46 Hct 40.8 % (36-47) 07/22/24 16:46 MCV 88.5 fl (85-98) 07/22/24 16:46 MCH 29.5 pg (27-33) 07/22/24 16:46 MCHC 33.3 g/dL (30-55) 07/22/24 16:46 RDW 13.0 % (12.1-15.1) 07/22/24 16:46 Plt Count 238 10^3/cmm (157-399) 07/22/24 16:46 MPV 10.2 fL (7.4-10.4) 07/22/24 16:46 Neut % (Auto) 77.8 % 07/22/24 16:46 Lymph % (Auto) 16.0 % 07/22/24 16:46 [place] % (Auto) 5.3 % 07/22/24 16:46 Eos % (Auto) 0.5 % 07/22/24 16:46 Baso % (Auto) 0.2 % 07/22/24 16:46 Neut # (Auto) 6.24 10^3/uL (1.8-7.7) 07/22/24 16:46 Lymph # (Auto) 1.3 10^3/uL (0.8-4.8) 07/22/24 16:46 [place] # (Auto) 0.4 10^3/uL (0.2-0.9) 07/22/24 16:46 Eos # (Auto) 0.0 10^3/uL (0.0-0.8) 07/22/24 16:46 Baso # (Auto) 0.0 10^3/uL (0.0-0.1) 07/22/24 16:46 Nucleated RBC % (auto) 0 % 07/22/24 16:46 Nucleated RBCs # 0.0 /100WBC 07/22/24 16:46 Sodium 137 mmol/L (136-145) 07/22/24 16:46 Potassium 3.7 mmol/L (3.5-5.1) 07/22/24 16:46 Chloride 104 mmol/L (98-107) 07/22/24 16:46 Carbon Dioxide 19 mmol/L (22-29) L 07/22/24 16:46 Anion Gap 17.7 (5-19) 07/22/24 16:46 BUN 6 mg/dL (6-20) 07/22/24 16:46 Creatinine 0.5 mg/dL (0.5-0.9) 07/22/24 16:46 GFR Calculation 148.0 mL/min (90-130) H 07/22/24 16:46 Glucose 83 mg/dL (65-115) 07/22/24 16:46 Calculated Osmolality 281 mOsm/kg (285-295) L 07/22/24 16:46 Calcium 9.3 mg/dL (8.5-10.5) 07/22/24 16:46 Total Bilirubin 0.4 mg/dL (0.15-1.2) 07/22/24 16:46 AST 13 U/L (0-32) 07/22/24 16:46 ALT 7 U/L (0-33) 07/22/24 16:46 Alkaline Phosphatase 55 U/L (35-105) 07/22/24 16:46 Total Protein 7.4 g/dL (6.6-8.7) 07/22/24 16:46 Albumin 4.2 g/dL (3.5-5.2) 07/22/24 16:46 Globulin 3.2 g/dL (1.3-4.6) 07/22/24 16:46 Lipase 21 U/L (13-60) 07/22/24 16:46 HCG, Qual Positive (Negative) H 07/22/24 16:46 Urine Color Dark yellow (Yellow) A 07/22/24 21:40 Urine Appearance Cloudy (CLEAR) A 07/22/24 21:40 Urine pH 6.0 (5-7) 07/22/24 21:40 Ur Specific [place] 1.030 (1.005-1.030) 07/22/24 21:40 Urine Protein 1+ (Negative) A 07/22/24 21:40 Urine Glucose (UA) Negative (Normal) 07/22/24 21:40 Urine Ketones 4+ (Negative) 07/22/24 21:40 Urine Blood Negative (Negative) 07/22/24 21:40 Urine Nitrate Negative (Negative) 07/22/24 21:40 Urine Bilirubin Negative (Negative) 07/22/24 21:40 Urine Urobilinogen 1.0 mg/dL (Negative) 07/22/24 21:40 Ur Leukocyte Esterase 1+ (Negative) A 07/22/24 21:40 Urine RBC 3-5 /hpf (0-2) 07/22/24 21:40 Urine WBC 21-50 /hpf (0-5) H 07/22/24 21:40 Ur Squamous Epith Cells 21-50 /hpf (0-5) H 07/22/24 21:40 Amorphous Sediment Not Reportable 07/22/24 21:40 Urine Bacteria 4+ /hpf (NONE) H 07/22/24 21:40 Hyaline Casts 3.71 /lpf 07/22/24 21:40 No radiology studies performed this visit Discharge Plan Discharge Patient Disposition: Home Clinical Impression: Nausea and vomiting during Condition: Stable Prescriptions: No Action sertraline 50 mg tablet 50 mg PO DAILY Qty: 30 1RF Rx Instructions: Take one tablet daily; stop other dose of this medication promethazine-DM 6.25-15 mg/5 mL syrup 5 ml PO Q4H PRN (Reason: cough) Qty: 118 0RF Rx Instructions: Do not exceed more than 30ml/24hour period (6 doses) cetirizine [Allergy Relief (cetirizine)] 10 mg tablet 10 mg PO DAILY PRN (Reason: congestion) Qty: 30 0RF fluticasone propionate [Flonase Allergy Relief] 50 mcg/actuation spray,suspension 2 spray intranasal DAILY Qty: 16 0RF Rx Instructions: administer into each nostril metoclopramide HCl 10 mg tablet 10 mg PO Q6H PRN (Reason: nausea and vomiting) Qty: 30 0RF -U 106.5-1 mg capsule 1 cap PO DAILY Qty: 30 0RF Discharge Orders: Discharge ED (Routine); Ordered 07/22/24 Ordered By: Ludivina Johnson Referrals: Monica Campo DO [Primary Care Provider, MEDICAL ASSISTING INSTRUCTOR] Activity Restrictions/Additional Instructions: Please follow-up with your OB provider for further episodes of nausea and vomiting. Blood work here was unremarkable. Bedside ultrasound showed a live intrauterine . As we discussed, urine was contaminated it was hard to evaluate for infection. You are not having UTI-like symptoms. Please seek medical re-evaluation for burning with urination, frequency/urgency/blood in your urine, hesitancy, flank pain, fevers, or any other concerns you may have. Print Language: Amharic Coding Level of Care Code ED Parcel Post Weigher for Brett Soto
[2024-07-22] MEDS: metoclopramide 5 mg/mL SDV 2 mL 10 MG IVP (20:56)
[2024-07-22] MEDS: sodium chloride 0.9% 1,000 ML 999 ML IV (20:56)
[2024-07-22 21:50] LABS: Bilirubin Urine Negative (Negative); Blood Urine Negative (Negative); Glucose Urine UA Negative (Normal); Ketones Urine 4+ (Negative); Leukocyte Esterase Urine 1+ (Negative); Nitrate Urine Negative (Negative); Protein Urine 1+ (Negative); Urine Appearance Cloudy (CLEAR); Urine Color Dark Yellow (Yellow)
[2024-07-22 21:55] LABS: Add Urine Microscopic? YES; Bacteria Urine 4+ /hpf; Hyaline Casts Urine 3.71 /lpf; Squamous Epithelial Cell Urine 21-50 /hpf (0-5); WBC Urine 21-50 /hpf (0-5)
[2024-07-22 22:23] VITALS: BP 130/85; PULSE 78; RESP 17; O2SAT 98
== END 2024-07-22 22:21 | disposition home or self-care (01) ==
PROVIDERS: Emergency Medicine; Emergency Provider Physician Assistant; PCP Family Medicine
DX: O21.9 Vomiting of pregnancy, unspecified (principal); Z3A.12 12 weeks gestation of pregnancy; Z87.891 Personal history of nicotine dependence
CPT/HCPCS: 36415; 80053; 81001; 83690; 84703; 85025; 96361; 96374; 99284; J2765; J7030

== ENCOUNTER → 2024-08-10 10:32 | Outpatient (BNVA) | payer MEDICAID, SELFPAY | PROVIDERS: PCP Family Medicine; Visit Provider Obstetrics & Gynecology | DX: O09.299 Supervision of pregnancy with other poor reproductive or obstetric history, unspecified trimester (principal); Z86.32 Personal history of gestational diabetes | CPT/HCPCS: 84315; 88175 ==

== ENCOUNTER → 2024-08-24 15:15 | Outpatient (BNVA) | payer MEDICAID, SELFPAY | PROVIDERS: PCP Family Medicine; Visit Provider Nurse Practitioner Women's Health | DX: O09.299 Supervision of pregnancy with other poor reproductive or obstetric history, unspecified trimester (principal); Z86.32 Personal history of gestational diabetes; Z34.90 Encounter for supervision of normal pregnancy, unspecified, unspecified trimester | CPT/HCPCS: 82105; 84315 ==

== ENCOUNTER 2024-09-02 03:11 | Emergency (ER) | payer MEDICAID, SELFPAY ==
[2024-09-02] VITALS (7 sets, daily range): BP systolic 99–141; BP diastolic 58–86; PULSE 57–64; RESP 17–18; TEMP 36.3; O2SAT 96–100; BMI 38.7
[2024-09-02 03:29] LABS: Hematocrit 40.7 % (36-47); Hemoglobin 13.80 g/dL (11.27-16.99); Mean Corpuscular HGB Conc 33.9 g/dL (30-55); Mean Corpuscular Hemoglobin 29.6 pg (27-33); Mean Corpuscular Volume 87.2 fl (85-98); Nucleated Red Blood Cells % 0 %; Platelet Count 228 10^3/cmm (157-399); Red Blood Count 4.67 10^6/uL (3.85-5.65); White Blood Count 13.59 10^3/uL (3.29-11.43)
[2024-09-02 03:46] LABS: Alanine Aminotransferase 8 U/L (0-33); Albumin Level 4.1 g/dL (3.5-5.2); Alkaline Phosphatase 63 U/L (35-105); Anion Gap 22.3 (5-19); Aspartate Amino Transferase 12 U/L (0-32); Blood Urea Nitrogen 7 mg/dL (6-20); Calcium 9.6 mg/dL (8.5-10.5); Carbon Dioxide 18 mmol/L (22-29); Chloride 101 mmol/L (98-107); Creatinine Clr Calc Pharmacy 175.9245; Globulin 3.7 g/dL (1.3-4.6); Glucose 161 mg/dL (65-115); Osmolality Calculated 285 mOsm/kg (285-295); Potassium 4.3 mmol/L (3.5-5.1); Sodium 137 mmol/L (136-145); Total Protein 7.8 g/dL (6.6-8.7)
[2024-09-02] MEDS: ondansetron 2 mg/ML SDV 2 mL 8 MG IVP (03:46)
[2024-09-02 04:05] LABS: Glucose Urine UA Negative (Normal); Nitrate Urine Negative (Negative)
[2024-09-02 04:10] LABS: Add Urine Microscopic? YES
[2024-09-02 04:27] LABS: Specific Gravity, Urine 1.034 (1.005-1.030); UA Slide Review UA Slide Review Perf
--- NOTE | 2024-09-02 04:35 | W.ED.NAVMDI ---
HPI - Nausea/Vomiting/Diarrhea General: Chief complaint: Nausea/Vomiting/Diarrhea Stated complaint: Vomiting Blood\17 Wks Preg Time Seen by Provider: 09/02/24 03:15 History of Present Illness: Patient is approximately 17 weeks and reports a sudden worsening of nausea and vomiting beginning earlier today. She estimates vomiting more than ten times since 9 a.m. and describes persistent, significant thirst. Home ondansetron has provided no relief. She also localizes [id number] pain down low in the abdomen. Usual morning sickness had been tolerable until today. She denies any prior similar flare this . Patient has already established care and states a prior ultrasound showed a healthy fetus. No other systemic review was discussed during the encounter. Related Data Previous Rx's ?Medication ?Instructions ?Recorded multivitamin no.51-ferrous 1 cap PO DAILY #30 caps 06/18/24 fumarate 106.5 mg-folic acid 1 mg capsule (-U) cetirizine 10 mg tablet (Allergy 10 mg PO DAILY PRN congestion #30 07/02/24 Relief (cetirizine)) tabs fluticasone propionate 50 2 spray intranasal DAILY #16 grams 07/02/24 mcg/actuation nasal spray,suspension (Flonase Allergy Relief) promethazine-DM 6.25 mg-15 mg/5 mL 5 ml PO Q4H PRN cough #118 mL 07/02/24 oral syrup sertraline 50 mg tablet 50 mg PO DAILY #30 tabs 07/21/24 metoclopramide HCl 10 mg tablet See Rx Instructions .Route 08/24/24 .COMPLEX #30 tabs ondansetron 4 mg disintegrating 4 mg PO Q8H PRN nausea and 09/02/24 tablet vomiting 4 days #30 tabs Allergies Allergy/AdvReac Type Severity Reaction Status Date / Time No Known Allergies Allergy Verified 09/02/24 03:23 [facility] ED PFS: Medical History (Updated 09/02/24 @ 05:14 by Skyler Saba MD) PROM (premature rupture of membranes) SUE (generalized anxiety disorder) Vapes nicotine containing substance Caffeine dependence Affective disorder Cannabis use disorder Nicotine use disorder Bipolar 2 disorder On combination antipsychotic drug therapy Psychiatric care Anxiety Depression Gestational diabetes URI (upper respiratory infection) Pharyngitis No significant past medical history Family History Denies family history of Colon cancer Ovarian cancer Diabetes Heart disease Hyperlipidemia Breast cancer Uterine cancer Thyroid disease Stroke Social History Smoking and tobacco/nicotine status: former use of tobacco/nicotine (quit May 2024) Alcohol intake: never Substance/Drug Use: former Adopted: No Caregiver/support person: No Lives independently: No Household members: spouse and children Housing: House Marital status: Number of children: 2 Highest education level completed: High School Graduate service: No Current occupational status: unemployed Pets and animals: No Leisure activites: other 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 Do you think of yourself as: Bisexual Current gender identity: Female Kate/Rastafari: Mormonism Special kate needs: No Agree to transfusion: Yes Female Reproductive History: Spontaneous abortions: No Physical Exam Const: COMMON NORMALS: no acute distress, patient oriented x3 and alert HENMT: COMMON NORMALS: normocephalic and atraumatic HEAD & SCALP: normocephalic and atraumatic Eye: COMMON NORMALS: Equal, round and reactive pupils present, EOMs intact bilaterally and no scleral icterus PUPIL: Yes Equal, round and reactive pupils present Resp: COMMON NORMALS: normal respiratory effort and No retractions Cardio: COMMON NORMALS: regular rate, regular rhythm and No murmurs present (Cardio) RATE: regular rate RHYTHM: regular rhythm GI: OTHER: Abdomen is appropriately gravid. Mild suprapubic tenderness. No pain with palpation of McBurney's point. Negative Wong sign. Neuro: COMMON NORMALS: patient oriented x3 SENSORIUM/ORIENTATION: Yes alert Skin: COMMON NORMALS: no rashes or lesions noted GENERAL SKIN EXAM: no rashes or lesions noted Course Vital Signs: Vital signs: Vital Signs Temperature 97.4 F L 09/02/24 03:22 Pulse Rate 64 09/02/24 05:00 Respiratory Rate 17 09/02/24 04:30 Blood Pressure 112/62 09/02/24 05:00 Pulse Oximetry 98 09/02/24 05:00 Oxygen Delivery Me thod Room Air 09/02/24 03:22 MDM - Nausea/Vomiting/Diarrhea Medical Decision Making In summary, patient is a generally well-appearing 29-year-old female who is experiencing increased amounts of nausea and vomiting and mild suprapubic pain. There is a slight white blood cell count elevation but I attribute this likely to vomiting. Abdominal exam is not consistent with acute appendicitis. She has no fever and no right lower quadrant pain. Urinalysis does not show evidence of infection. With IV Zofran and fluids she feels significantly better and is able to eat and drink. 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 knowing that she is always welcome back in the emergency department if symptoms get worse before then Lab Data 09/02/24 03:10 09/02/24 03:10 Laboratory Results WBC 13.59 10^3/uL (3.29-11.43) H 09/02/24 03:10 RBC 4.67 10^6/uL (3.85-5.65) 09/02/24 03:10 Hgb 13.80 g/dL (11.27-16.99) 09/02/24 03:10 Hct 40.7 % (36-47) 09/02/24 03:10 MCV 87.2 fl (85-98) 09/02/24 03:10 MCH 29.6 pg (27-33) 09/02/24 03:10 MCHC 33.9 g/dL (30-55) 09/02/24 03:10 RDW 13.1 % (12.1-15.1) 09/02/24 03:10 Plt Count 228 10^3/cmm (157-399) 09/02/24 03:10 MPV 10.4 fL (7.4-10.4) 09/02/24 03:10 Neut % (Auto) 90.4 % 09/02/24 03:10 Lymph % (Auto) 6.1 % 09/02/24 03:10 [place] % (Auto) 2.6 % 09/02/24 03:10 Eos % (Auto) 0.4 % 09/02/24 03:10 Baso % (Auto) 0.1 % 09/02/24 03:10 Neut # (Auto) 12.28 10^3/uL (1.8-7.7) H 09/02/24 03:10 Lymph # (Auto) 0.8 10^3/uL (0.8-4.8) 09/02/24 03:10 [place] # (Auto) 0.4 10^3/uL (0.2-0.9) 09/02/24 03:10 Eos # (Auto) 0.1 10^3/uL (0.0-0.8) 09/02/24 03:10 Baso # (Auto) 0.0 10^3/uL (0.0-0.1) 09/02/24 03:10 Nucleated RBC % (auto) 0 % 09/02/24 03:10 Nucleated RBCs # 0.0 /100WBC 09/02/24 03:10 Sodium 137 mmol/L (136-145) 09/02/24 03:10 Potassium 4.3 mmol/L (3.5-5.1) 09/02/24 03:10 Chloride 101 mmol/L (98-107) 09/02/24 03:10 Carbon Dioxide 18 mmol/L (22-29) L 09/02/24 03:10 Anion Gap 22.3 (5-19) H 09/02/24 03:10 BUN 7 mg/dL (6-20) 09/02/24 03:10 Creatinine 0.6 mg/dL (0.5-0.9) 09/02/24 03:10 GFR Calculation 119.9 mL/min (90-130) 09/02/24 03:10 Glucose 161 mg/dL (65-115) H 09/02/24 03:10 Calculated Osmolality 285 mOsm/kg (285-295) 09/02/24 03:10 Calcium 9.6 mg/dL (8.5-10.5) 09/02/24 03:10 Total Bilirubin 0.2 mg/dL (0.15-1.2) 09/02/24 03:10 AST 12 U/L (0-32) 09/02/24 03:10 ALT 8 U/L (0-33) 09/02/24 03:10 Alkaline Phosphatase 63 U/L (35-105) 09/02/24 03:10 Total Protein 7.8 g/dL (6.6-8.7) 09/02/24 03:10 Albumin 4.1 g/dL (3.5-5.2) 09/02/24 03:10 Globulin 3.7 g/dL (1.3-4.6) 09/02/24 03:10 Urine Color Yellow (Yellow) 09/02/24 04:00 Urine Appearance Cloudy (CLEAR) A 09/02/24 04:00 Urine pH 5.5 (5-7) 09/02/24 04:00 Ur Specific [place] 1.034 (1.005-1.030) H 09/02/24 04:00 Urine Protein 2+ (Negative) A 09/02/24 04:00 Urine Glucose (UA) Negative (Normal) 09/02/24 04:00 Urine Ketones 4+ (Negative) 09/02/24 04:00 Urine Blood Negative (Negative) 09/02/24 04:00 Urine Nitrate Negative (Negative) 09/02/24 04:00 Urine Bilirubin Negative (Negative) 09/02/24 04:00 Urine Urobilinogen 1.0 mg/dL (Negative) 09/02/24 04:00 Ur Leukocyte Esterase Negative (Negative) 09/02/24 04:00 Urine RBC 0-2 /hpf (0-2) 09/02/24 04:00 Urine WBC 21-50 /hpf (0-5) H 09/02/24 04:00 Ur Squamous Epith Cells 21-50 /hpf (0-5) H 09/02/24 04:00 Amorphous Sediment Not Reportable 09/02/24 04:00 Urine Bacteria 4+ /hpf (NONE) H 09/02/24 04:00 Hyaline Casts 11.97 /lpf 09/02/24 04:00 No radiology studies performed this visit Discharge Plan Discharge Patient Disposition: Home Clinical Impression: Nausea & vomiting Condition: Stable Prescriptions: New ondansetron 4 mg tablet,disintegrating 4 mg PO Q8H PRN (Reason: nausea and vomiting) 4 Days Qty: 30 0RF No Action sertraline 50 mg tablet 50 mg PO DAILY Qty: 30 1RF Rx Instructions: Take one tablet daily; stop other dose of this medication promethazine-DM 6.25-15 mg/5 mL syrup 5 ml PO Q4H PRN (Reason: cough) Qty: 118 0RF Rx Instructions: Do not exceed more than 30ml/24hour period (6 doses) cetirizine [Allergy Relief (cetirizine)] 10 mg tablet 10 mg PO DAILY PRN (Reason: congestion) Qty: 30 0RF fluticasone propionate [Flonase Allergy Relief] 50 mcg/actuation spray,suspension 2 spray intranasal DAILY Qty: 16 0RF Rx Instructions: administer into each nostril metoclopramide HCl 10 mg tablet See Rx Instructions .ROUTE .COMPLEX Qty: 30 0RF Dose Instruction: TAKE 1 TABLET BY MOUTH EVERY 6 HOURS NEEDED FOR NAUSEA AND VOMITING Rx Instructions: TAKE 1 TABLET BY MOUTH EVERY 6 HOURS NEEDED FOR NAUSEA AND VOMITING -U 106.5-1 mg capsule 1 cap PO DAILY Qty: 30 0RF Discharge Orders: Discharge ED (Routine); Ordered 09/02/24 Ordered By: Skyler Saba Discharge Diet: Advance as tolerated Discharge Activity: Increase activity as tolerated Patient Instructions: Hyperemesis Gravidarum (ED), Patient Portal & Colleen Instructions Print Language: Vietnamese Coding Level of Care Code ED Process Mold Technician for Brett Soto
== END 2024-09-02 05:34 | disposition home or self-care (01) ==
PROVIDERS: Emergency Provider Student in an Organized Health Care Education/Training Program
DX: O21.9 Vomiting of pregnancy, unspecified (principal); Z3A.17 17 weeks gestation of pregnancy; Z87.891 Personal history of nicotine dependence
CPT/HCPCS: 36415; 80053; 81001; 85025; 96361; 96374; 99284; J2405; J7030

== ENCOUNTER → 2024-09-21 14:24 | Outpatient (BNVA) | payer MEDICAID, SELFPAY | PROVIDERS: PCP Family Medicine; Visit Provider Obstetrics & Gynecology | DX: Z36.9 Encounter for antenatal screening, unspecified (principal) | CPT/HCPCS: 76805 ==

== ENCOUNTER → 2024-09-30 14:45 | Outpatient (BNVA) | payer MEDICAID, SELFPAY | PROVIDERS: PCP Family Medicine; Visit Provider Obstetrics & Gynecology | DX: O09.299 Supervision of pregnancy with other poor reproductive or obstetric history, unspecified trimester (principal); Z86.32 Personal history of gestational diabetes | CPT/HCPCS: 84315 ==

== ENCOUNTER 2024-10-15 17:04 | Emergency (ER) | payer MEDICAID, SELFPAY ==
[2024-10-15 17:35] VITALS: BP 148/81; PULSE 84; RESP 16; TEMP 36.8; O2SAT 99; BMI 38.7
[2024-10-15 17:54] LABS: Hematocrit 34.3 % (36-47); Hemoglobin 11.30 g/dL (11.27-16.99); Mean Corpuscular HGB Conc 32.9 g/dL (30-55); Mean Corpuscular Hemoglobin 30.4 pg (27-33); Mean Corpuscular Volume 92.2 fl (85-98); Nucleated Red Blood Cells % 0 %; Platelet Count 204 10^3/cmm (157-399); Red Blood Count 3.72 10^6/uL (3.85-5.65); White Blood Count 9.11 10^3/uL (3.29-11.43)
[2024-10-15 17:57] VITALS: BP 148/81; PULSE 84; RESP 16; TEMP 36.8; O2SAT 99
[2024-10-15 18:10] LABS: Alanine Aminotransferase < 5 U/L (0-33); Albumin Level 3.6 g/dL (3.5-5.2); Alkaline Phosphatase 59 U/L (35-105); Anion Gap 16.4 (5-19); Aspartate Amino Transferase 10 U/L (0-32); Blood Urea Nitrogen 6 mg/dL (6-20); Calcium 8.8 mg/dL (8.5-10.5); Carbon Dioxide 19 mmol/L (22-29); Chloride 104 mmol/L (98-107); Creatinine Clr Calc Pharmacy 211.1094; Globulin 3.2 g/dL (1.3-4.6); Glucose 87 mg/dL (65-115); Osmolality Calculated 279 mOsm/kg (285-295); Potassium 3.4 mmol/L (3.5-5.1); Sodium 136 mmol/L (136-145); Total Protein 6.8 g/dL (6.6-8.7)
[2024-10-15 18:12] LABS: Acetaminophen < 5.0 ug/mL (10-30); Alcohol Level < 10 mg/dL (0-10); Salicylate < 0.3 mg/dL (3-10)
[2024-10-15 19:51] LABS: HCG Qualitative Urine. Positive (Negative)
[2024-10-15 20:33] VITALS: BP 102/68; PULSE 71; O2SAT 97
--- NOTE | 2024-10-15 20:35 | ED.C_ITS ---
HPI - Psych 2 General: Chief Complaint: Psychiatric Symptoms Stated Complaint: SI HI Time Seen by Provider: 10/15/24 17:18 Source: patient and family (Spouse) Mode of arrival: ambulatory Limitations: no limitations History of Present Illness: This patient is a 29-year-old female with a past medical history of generalized anxiety disorder, bipolar disorder, depression, and substance use disorder who presents voluntarily for mental health evaluation. Patient reports to the ED with her , stated wanted the patient checked out due to statements she had been making. I first spoke to the patient, who is, cooperative and states that she checked herself into prove a point. She states that she got into an argument with her , and that she frequently will get in fits of rage where she will threaten to harm herself and admits to me that she is manipulative in this way. She then states that she has never been suicidal in her life, as she has 2 children at home and is currently and that she would never do this. She has never been homicidal and does not feel aggressive towards her during these conflicts. She states that she does not feel unsafe at home and that she simply checked in to show her that she is not actually serious about doing any of this due to the concern he was expressing. I spoke to separately, he states that he got an argument with the patient and she did make a comment about jumping out of the car while it was moving and had a couple of other of subtle threats of not being here anymore. He states that other than this he has never heard her make any suicidal comments about herself or any comments about hurting her children. He states that he does not feel unsafe at home, he just wanted her checked out due to today's incident being the worst. He provided confusing history where initially he stated that she made comments, but then stated that it was primarily with her actions. He was unable to elaborate on this further but did tell me that he knows that her being is probably complicating their arguments. Overall he did not further endorse any SI or HI that the patient had. I spoke to the patient again, she states that she has outpatient psychiatric follow-ups weekly that she attends and that helps her greatly, she denied any medication changes and states that she feels safe to go home. She again reiterates that she is not suicidal or homicidal, has no hallucinations or substance use at this time. MD complaint: other (For mental health evaluation) Associated symptoms: Deny auditory hallucinations, visual hallucinations, depression, homicidal ideation or suicidal ideation Related Data Previous Rx's ?Medication ?Instructions ?Recorded multivitamin no.51-ferrous 1 cap PO DAILY #30 caps 03/14 fumarate 106.5 mg-folic acid 1 mg capsule (-U) fluticasone propionate 50 2 spray intranasal DAILY #16 grams 07/02/24 mcg/actuation nasal spray,suspension (Flonase Allergy Relief) sertraline 50 mg tablet 50 mg PO DAILY #30 tabs 05/12 docusate sodium 100 mg capsule 100 mg PO BID PRN const ipation #60 10/01/24 (Colace) caps ondansetron HCl 4 mg tablet 4 mg PO Q8H PRN nausea and 10/01/24 vomiting #30 tabs Allergies Allergy/AdvReac Type Severity Reaction Status Date / Time No Known Allergies Allergy Verified 09/30/24 11:45 Review of Systems 2 General: Reports: 10 or more systems reviewed and unremarkable except in HPI and below Const: Reports: other (Present for mental health evaluation); Denies: fever(s), chills or fatigue Eyes: Denies: change in vision ENMT: Denies: throat pain, ear or mastoid pain or nasal discharge Card: Denies: chest pain, palpitations, swelling of feet/ankles or lightheadedness Resp: Denies: dyspnea, productive cough or wheezing GI: Denies: abdominal pain, nausea, vomiting, diarrhea or constipation : Denies: flank pain, difficulty voiding, dysuria or urinary frequency Musc: Denies: neck pain, back pain or joint pain Skin/Breast: Denies: rash Neuro: Denies: headache(s), numbness in extremities or weakness in extremities Psych: Denies: anxiety, depression, mood swings, panic attacks, visual hallucinations, auditory hallucinations, tactile hallucinations, suicidal ideation or homicidal ideation PFSH ED 2 PFSH: Medical History PROM (premature rupture of membranes) SUE (generalized anxiety disorder) Vapes nicotine containing substance Caffeine dependence Affective disorder Cannabis use disorder Nicotine use disorder Bipolar 2 disorder On combination antipsychotic drug therapy Psychiatric care Anxiety Depression Gestational diabetes URI (upper respiratory infection) Pharyngitis No significant past medical history Family History Denies family history of Colon cancer Ovarian cancer Diabetes Heart disease Hyperlipidemia Breast cancer Uterine cancer Thyroid disease Stroke Social History Smoking and tobacco/nicotine status: former use of tobacco/nicotine (quit May 2024) Alcohol intake: never Substance/Drug Use: former Adopted: No Caregiver/support person: No Lives independently: No Household members: spouse and children Housing: House Marital status: Number of children: 2 Highest education level completed: High School Graduate service: No Current occupational status: unemployed Pets and animals: No Leisure activites: other 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 Do you think of yourself as: Bisexual Current gender identity: Female Kate/Taoist: Mandaen Special kate needs: No Agree to transfusion: Yes Female Reproductive History: Spontaneous abortions: No Physical Exam 2 Const: COMMON NORMALS: no acute distress, patient oriented x3 and no limitations GENERAL APPEARANCE: cooperative, comfortable and well developed ORIENTATION/CONSCIOUSNESS: Yes awake, Yes oriented to person, Yes oriented to place and Yes oriented to time HENMT: COMMON NORMALS: normocephalic, atraumatic and hearing grossly normal bilaterally HEAD & SCALP: normocephalic and atraumatic Eye: COMMON NORMALS: Equal, round and reactive pupils present, EOMs intact bilaterally and conjunctivae normal CONJUNCTIVA: Yes conjunctivae normal P UPIL: Yes Equal, round and reactive pupils present Neck/C-Spine: COMMON NORMALS: full ROM, supple and no JVD Resp: COMMON NORMALS: normal respiratory effort, No retractions, No use of accessory muscles and clear to auscultation bilaterally AUSCULTATION: clear to auscultation bilaterally Cardio: COMMON NORMALS: no JVD, regular rate, regular rhythm, No clicks present (Cardio), No murmurs present (Cardio) and No rub (Cardio) RATE: r egular rate RHYTHM: regular rhythm GI: COMMON NORMALS: Normal to inspection, nondistended, normoactive bowel sounds present, Soft to palpation and non-tender AUSCULTATION: Yes normoactive bowel sounds PALPATION: Yes Soft to palpation RECTAL EXAM: d eferred Extremity: COMMON NORMALS: normal to inspection, full ROM and capillary refill normal Neuro: COMMON NORMALS: patient oriented x3, moves all extremities, no focal motor deficits and no sensory deficits noted SENSORIUM/ORIENTATION: Yes oriented to person, Yes oriented to place and Yes oriented to time Psych: COMMON NORMALS: mental status grossly normal, Normal thought process present and speech normal APPEARANCE: Yes grossly normal ATTITUDE: Yes calm ACTIVITY/MOTOR BEHAVIOR: Yes appropriate eye contact SPEECH: Yes normal speech MOOD & AFFECT: Yes euthymic mood THOUGHT PROCESS: Normal thought process present THOUGHT CONTENT: Yes Normal thought content present, No Suicidality present, No Homicidality present and No Hallucination(s) present ATTENTION/CONCENTRATION: Yes attention grossly intact MEMORY/COGNITION: Yes memory grossly intact INSIGHT: Good insight present (Psych) JUDGEMENT: G ood judgement present (Psych) Skin: COMMON NORMALS: no rashes or lesions noted GENERAL SKIN EXAM: no rashes or lesions noted Course 2 Vital Signs: Vital signs: Vital Signs Temperature 98.2 F 10/15/24 17:57 Pulse Rate 71 10/15/24 20:33 Respiratory Rate 16 10/15/24 17:57 Blood Pressure 102/68 10/15/24 20:33 Pulse Oximetry 97 10/15/24 20:33 Oxygen Delivery Me thod Room Air 10/15/24 17:57 MDM - Psych Medical Decision Making Patient presented voluntarily for mental health evaluation, please review the [facility] for full history in regards to her presentation. Multiple times she has denied any suicidal ideations or homicidal Nations at any point tonight or in the past, she has never been inpatient psychiatric facility but does see outpatient psychiatry regularly. Speaking to both the patient and , I do not feel that this patient is an immediate threat to herself, to spouse, or to her children and feel that she is safe for discharge home with her continued outpatient therapy. No affidavits or any filing in her chart. Speaking to spouse, he confirmed that he felt safe with her home as well. Patient will be discharged home with strict return precautions, and I spoke with Dr. Rodriguez about this patient. Lab Data 10/15/24 17:41 10/15/24 17:41 Laboratory Results WBC 9.11 10^3/uL (3.29-11.43) 10/15/24 17:41 RBC 3.72 10^6/uL (3.85-5.65) L 10/15/24 17:41 Hgb 11.30 g/dL (11.27-16.99) 10/15/24 17:41 Hct 34.3 % (36-47) L 10/15/24 17:41 MCV 92.2 fl (85-98) 10/15/24 17:41 MCH 30.4 pg (27-33) 10/15/24 17:41 MCHC 32.9 g/dL (30-55) 10/15/24 17:41 RDW 13.6 % (12.1-15.1) 10/15/24 17:41 Plt Count 204 10^3/cmm (157-399) 10/15/24 17:41 MPV 10.3 fL (7.4-10.4) 10/15/24 17:41 Neut % (Auto) 77.9 % 10/15/24 17:41 Lymph % (Auto) 15.8 % 10/15/24 17:41 [place] % (Auto) 5.0 % 10/15/24 17:41 Eos % (Auto) 0.9 % 10/15/24 17:41 Baso % (Auto) 0.1 % 10/15/24 17:41 Neut # (Auto) 7.09 10^3/uL (1.8-7.7) 10/15/24 17:41 Lymph # (Auto) 1.4 10^3/uL (0.8-4.8) 10/15/24 17:41 [place] # (Auto) 0.5 10^3/uL (0.2-0.9) 10/15/24 17:41 Eos # (Auto) 0.1 10^3/uL (0.0-0.8) 10/15/24 17:41 Baso # (Auto) 0.0 10^3/uL (0.0-0.1) 10/15/24 17:41 Nucleated RBC % (auto) 0 % 10/15/24 17:41 Nucleated RBCs # 0.0 /100WBC 10/15/24 17:41 Sodium 136 mmol/L (136-145) 10/15/24 17:41 Potassium 3.4 mmol/L (3.5-5.1) L 10/15/24 17:41 Chloride 104 mmol/L (98-107) 10/15/24 17:41 Carbon Dioxide 19 mmol/L (22-29) L 10/15/24 17:41 Anion Gap 16.4 (5-19) 10/15/24 17:41 BUN 6 mg/dL (6-20) 10/15/24 17:41 Creatinine 0.5 mg/dL (0.5-0.9) 10/15/24 17:41 GFR Calculation 148.0 mL/min (90-130) H 10/15/24 17:41 Glucose 87 mg/dL (65-115) 10/15/24 17:41 Calculated Osmolality 279 mOsm/kg (285-295) L 10/15/24 17:41 Calcium 8.8 mg/dL (8.5-10.5) 10/15/24 17:41 Total Bilirubin 0.2 mg/dL (0.15-1.2) 10/15/24 17:41 AST 10 U/L (0-32) 10/15/24 17:41 ALT < 5 U/L (0-33) 10/15/24 17:41 Alkaline Phosphatase 59 U/L (35-105) 10/15/24 17:41 Total Protein 6.8 g/dL (6.6-8.7) 10/15/24 17:41 Albumin 3.6 g/dL (3.5-5.2) 10/15/24 17:41 Globulin 3.2 g/dL (1.3-4.6) 10/15/24 17:41 HCG, Qual Positive (Negative) H 10/15/24 19:15 Salicylates < 0.3 mg/dL (3-10) L 10/15/24 17:41 Acetaminophen < 5.0 ug/mL (10-30) L 10/15/24 17:41 Ethyl Alcohol < 10 mg/dL (0-10) 10/15/24 17:41 No radiology studies performed this visit Discharge Plan Discharge Patient Disposition: Home Clinical Impression: No abnormality detected on mental health assessment Condition: Stable Prescriptions: No Action sertraline 50 mg tablet 50 mg PO DAILY Qty: 30 1RF Rx Instructions: Take one tablet daily; stop other dose of this medication fluticasone propionate [Flonase Allergy Relief] 50 mcg/actuation spray,suspension 2 spray intranasal DAILY Qty: 16 0RF Rx Instructions: administer into each nostril ondansetron HCl 4 mg tablet 4 mg PO Q8H PRN (Reason: nausea and vomiting) Qty: 30 3RF docusate sodium [Colace] 100 mg capsule 100 mg PO BID PRN (Reason: constipation) Qty: 60 3RF -U 106.5-1 mg capsule 1 cap PO DAILY Qty: 30 0RF Discharge Orders: Discharge ED (Routine); Ordered 10/15/24 Ordered By: George Floyd Referrals: Monica Campo DO [Primary Care Provider, [facility]PRAISER] Patient Instructions: Patient Portal & Colleen Instructions Activity Restrictions/Additional Instructions: Psychiatry Discharge Discharge Instructions: Patient with Psychiatric Symptoms Diagnosis/Context: 29-year-old female presented with reported suicidal and homicidal ideation, but was not found to be actively suicidal or homicidal. She is currently psychiatrically stable and safe for discharge, with a plan for continued outpatient psychiatric care and ongoing pharmacotherapy. Medications: - Continue all prescribed psychiatric medications as directed. Adherence to pharmacotherapy is critical to reduce relapse risk and optimize maternal and outcomes. Dose adjustments may be necessary during due to altered pharmacokinetics; ongoing monitoring is recommended. - Do not discontinue or adjust medications without consulting the prescribing psychiatrist or obstetric provider. Follow-Up: - Maintain scheduled outpatient psychiatric appointments. Early intervention and regular follow-up are essential for symptom monitoring and risk reduction. - Notify the psychiatric provider of any changes in mood, thoughts, or medication side effects. Safety and Support: - Engage social supports (family, friends, partner) as appropriate. - If possible, ensure a safe home environment and remove access to potentially dangerous items. Return Precautions: Return to the Emergency Department or contact your psychiatric provider immediately for any of the following: - Emergence or worsening of suicidal or homicidal thoughts. - Thoughts of self-harm or harm to others. - New or worsening psychotic symptoms (e.g., hallucinations, paranoia). - Inability to care for self or fetus due to psychiatric symptoms. - Severe medication side effects (e.g., allergic reaction, severe sedation, abnormal movements). - Any other acute change in mental status or safety concerns. Additional Recommendations: - Continue routine care and inform the obstetric provider of any psychiatric symptoms or medication changes. - Monitor for symptoms of depression, anxiety, or arti, as mood disorders may fluctuate during . - If unable to attend scheduled appointments, contact the psychiatric clinic to reschedule promptly. Education: - Untreated psychiatric illness during poses risks to both mother and fetus, including impaired care, nutrition, and bonding. - Stigma reduction and open communication with healthcare providers are encouraged. - Emergency services: 911 Summary: This patient is psychiatrically stable at discharge, with no current suicidal or homicidal intent. Continued outpatient psychiatric management and medication adherence are recommended per ACOG guidelines. Clear return precautions are provided to ensure safety in the event of symptom escalation. Print Language: Dutch Coding Level of Care Code ED Profiling Machine Set Up Operator Tool for Brett Soto
== END 2024-10-15 20:34 | disposition home or self-care (01) ==
PROVIDERS: Emergency Provider Physician Assistant; PCP Family Medicine
DX: R46.89 Other symptoms and signs involving appearance and behavior (principal); Z87.891 Personal history of nicotine dependence
CPT/HCPCS: 36415; 80053; 80307; 81025; 85025; 99283

== ENCOUNTER 2024-10-20 12:59 | Emergency (ER) | payer MEDICAID, SELFPAY ==
[2024-10-20 13:03] VITALS: BP 116/77; PULSE 68; TEMP 36.7; O2SAT 98
--- NOTE | 2024-10-20 13:40 | ED_ITS ---
HPI - Nausea/Vomiting/Diarrhea 2 General: Chief complaint: Nausea/Vomiting/Diarrhea Stated complaint: N/V Time Seen by Provider: 10/20/24 13:03 Source: patient Mode of arrival: ambulatory Limitations: no limitations History of Present Illness: 29-year-old female who is currently 24 w eeks states she has had issues with vomiting in this she states she has been having vomiting over the last day. She denies any abdominal pain denies any complaints denies any vaginal bleeding. States she had had some oral Zofran but was not the dissolvable type and she threw it up. States she has had good success here when she got IV Zofran and fluids. Denies any diarrhea Associated nausea: Yes Associated symtoms: Reports nausea; Denies chest pain or headache(s) Related Data Previous Rx's ?Medication ?Instructions ?Recorded multivitamin no.51-ferrous 1 cap PO DAILY #30 caps 03/14 fumarate 106.5 mg-folic acid 1 mg capsule (-U) fluticasone propionate 50 2 spray intranasal DAILY #16 grams 07/02/24 mcg/actuation nasal spray,suspension (Flonase Allergy Relief) sertraline 50 mg tablet 50 mg PO DAILY #30 tabs 06/0 05/12 docusate sodium 100 mg capsule 100 mg PO BID PRN const ipation #60 10/01/24 (Colace) caps ondansetron HCl 4 mg tablet 4 mg PO Q8H PRN nausea and 10/01/24 vomiting #30 tabs ondansetron 4 mg disintegrating 4 mg PO Q6H PRN nausea and 10/20/24 tablet vomiting #14 tabs Allergies Allergy/AdvReac Type Severity Reaction Status Date / Time No Known Allergies Allergy Verified 10/20/24 13:07 Review of Systems 2 Const: Denies: fever(s), chills, body aches or change in appetite ENMT: Denies: throat pain or dental pain Card: Denies: chest pain Resp: Denies: dyspnea GI: Reports: nausea and vomiting; Denies: abdominal pain or diarrhea Musc: Denies: neck pain or back pain Skin/Breast: Denies: rash Neuro: Denies: headache(s) PFSH ED 2 PFSH: Medical History PROM (premature rupture of membranes) SUE (generalized anxiety disorder) Vapes nicotine containing substance Caffeine dependence Affective disorder Cannabis use disorder Nicotine use disorder Bipolar 2 disorder On combination antipsychotic drug therapy Psychiatric care Anxiety Depression Gestational diabetes URI (upper respiratory infection) Pharyngitis No significant past medical history Family History Denies family history of Colon cancer Ovarian cancer Diabetes Heart disease Hyperlipidemia Breast cancer Uterine cancer Thyroid disease Stroke Social History Smoking and tobacco/nicotine status: former use of tobacco/nicotine (quit May 2024) Alcohol intake: never Substance/Drug Use: former Adopted: No Caregiver/support person: No Lives independently: No Household members: spouse and children Housing: House Marital status: Number of children: 2 Highest education level completed: High School Graduate service: No Current occupational status: unemployed Pets and animals: No Leisure activites: other 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 Do you think of yourself as: Bisexual Current gender identity: Female Kate/Congregational: Yarsanism Special kate needs: No Agree to transfusion: Yes Female Reproductive History: Spontaneous abortions: No Physical Exam 2 Const: COMMON NORMALS: no acute distress, patient oriented x3 and healthy appearing HENMT: COMMON NORMALS: normocephalic and atraumatic HEAD & SCALP: n ormocephalic and atraumatic Eye: COMMON NORMALS: conjunctivae normal CONJUNCTIVA: Yes conjunctivae normal Neck/C-Spine: COMMON NORMALS: full ROM and supple Chest: COMMONS NORMALS: normal inspection of the chest Resp: COMMON NORMALS: normal respiratory effort, No retractions, No use of accessory muscles and clear to auscultation bilaterally AUSCULTATION: clear to auscultation bilaterally Cardio: COMMON NORMALS: regular rate, regular rhythm and No murmurs present (Cardio) RATE: regular rate RHYTHM: regular rhythm GI: COMMON NORMALS: Normal to inspection, nondistended, normoactive bowel sounds present, Soft to palpation, non-tender and no masses PALPATION: Yes Soft to palpation Extremity: COMMON NORMALS: normal to inspection and full ROM Neuro: COMMON NORMALS: patient oriented x3, moves all extremities and no focal motor deficits Psych: COMMON NORMALS: mental status grossly normal, Normal thought process present and cooperative THOUGHT PROCESS: Normal thought process present Skin: COMMON NORMALS: no rashes or lesions noted and no wounds GENERAL SKIN EXAM: no rashes or lesions noted Course 2 Vital Signs: Vital signs: Vital Signs Temperature 98.1 F 10/20/24 13:03 Pulse Rate 68 10/20/24 13:03 Blood Pressure 116/77 10/20/24 13:03 Pulse Oximetry 98 10/20/24 13:03 Oxygen Delivery Me thod Room Air 10/20/24 13:03 MDM - Nausea/Vomiting/Diarrhea Medical Decision Making Patient presents here with vomiting likely hyperemesis gravidarum she is feeling much improved after fluids and Zofran blood works normal she stable for discharge we will prescribe her Zofran she is to follow-up with her PCP and return if worsening. Medical Records I reviewed the patient's medical records. Lab Data I reviewed the patient's lab results. 10/20/24 13:35 10/20/24 13:35 Laboratory Results WBC 9.24 10^3/uL (3.29-11.43) 10/20/24 13:35 RBC 4.02 10^6/uL (3.85-5.65) 10/20/24 13:35 Hgb 12.60 g/dL (11.27-16.99) 10/20/24 13:35 Hct 37.1 % (36-47) 10/20/24 13:35 MCV 92.3 fl (85-98) 10/20/24 13:35 MCH 31.3 pg (27-33) 10/20/24 13:35 MCHC 34.0 g/dL (30-55) 10/20/24 13:35 RDW 13.2 % (12.1-15.1) 10/20/24 13:35 Plt Count 207 10^3/cmm (157-399) 10/20/24 13:35 MPV 10.3 fL (7.4-10.4) 10/20/24 13:35 Neut % (Auto) 83.3 % 10/20/24 13:35 Lymph % (Auto) 12.3 % 10/20/24 13:35 [place] % (Auto) 3.4 % 10/20/24 13:35 Eos % (Auto) 0.5 % 10/20/24 13:35 Baso % (Auto) 0.2 % 10/20/24 13:35 Neut # (Auto) 7.69 10^3/uL (1.8-7.7) 10/20/24 13:35 Lymph # (Auto) 1.1 10^3/uL (0.8-4.8) 10/20/24 13:35 [place] # (Auto) 0.3 10^3/uL (0.2-0.9) 10/20/24 13:35 Eos # (Auto) 0.1 10^3/uL (0.0-0.8) 10/20/24 13:35 Baso # (Auto) 0.0 10^3/uL (0.0-0.1) 10/20/24 13:35 Nucleated RBC % (auto) 0 % 10/20/24 13:35 Nucleated RBCs # 0.0 /100WBC 10/20/24 13:35 Sodium 138 mmol/L (136-145) 10/20/24 13:35 Potassium 4.0 mmol/L (3.5-5.1) 10/20/24 13:35 Chloride 104 mmol/L (98-107) 10/20/24 13:35 Carbon Dioxide 20 mmol/L (22-29) L 10/20/24 13:35 Anion Gap 18.0 (5-19) 10/20/24 13:35 BUN 5 mg/dL (6-20) L 10/20/24 13:35 Creatinine 0.5 mg/dL (0.5-0.9) 10/20/24 13:35 GFR Calculation 148.0 mL/min (90-130) H 10/20/24 13:35 Glucose 95 mg/dL (65-115) 10/20/24 13:35 Calculated Osmolality 283 mOsm/kg (285-295) L 10/20/24 13:35 Calcium 8.8 mg/dL (8.5-10.5) 10/20/24 13:35 Total Bilirubin 0.2 mg/dL (0.15-1.2) 10/20/24 13:35 AST 8 U/L (0-32) 10/20/24 13:35 ALT < 5 U/L (0-33) 10/20/24 13:35 Alkaline Phosphatase 64 U/L (35-105) 10/20/24 13:35 Total Protein 7.2 g/dL (6.6-8.7) 10/20/24 13:35 Albumin 3.8 g/dL (3.5-5.2) 10/20/24 13:35 Globulin 3.4 g/dL (1.3-4.6) 10/20/24 13:35 Lipase 18 U/L (13-60) 10/20/24 13:35 HCG, Qual Positive (Negative) H 10/20/24 13:35 Amorphous Sediment Not Reportable 10/20/24 13:45 No radiology studies performed this visit Discharge Plan Discharge Patient Disposition: Home Clinical Impression: Vomiting Condition: Stable Prescriptions: New ondansetron 4 mg tablet,disintegrating 4 mg PO Q6H PRN (Reason: nausea and vomiting) Qty: 14 0RF No Action sertraline 50 mg tablet 50 mg PO DAILY Qty: 30 1RF Rx Instructions: Take one tablet daily; stop other dose of this medication fluticasone propionate [Flonase Allergy Relief] 50 mcg/actuation spray,suspension 2 spray intranasal DAILY Qty: 16 0RF Rx Instructions: administer into each nostril ondansetron HCl 4 mg tablet 4 mg PO Q8H PRN (Reason: nausea and vomiting) Qty: 30 3RF docusate sodium [Colace] 100 mg capsule 100 mg PO BID PRN (Reason: constipation) Qty: 60 3RF -U 106.5-1 mg capsule 1 cap PO DAILY Qty: 30 0RF Discharge Orders: Discharge ED (Routine); Ordered 10/20/24 Ordered By: Nicolas Vogel Referrals: Monica Campo DO [Primary Care Provider, [employer]] - 4-7 days Discharge Diet: Advance as tolerated Discharge Activity: Resume usual activity Patient Instructions: Hyperemesis Gravidarum (ED) Print Language: Yi Coding Level of Care Code ED Technology Applications Engineer for Brett Soto
[2024-10-20 13:44] LABS: Hematocrit 37.1 % (36-47); Hemoglobin 12.60 g/dL (11.27-16.99); Mean Corpuscular HGB Conc 34.0 g/dL (30-55); Mean Corpuscular Hemoglobin 31.3 pg (27-33); Mean Corpuscular Volume 92.3 fl (85-98); Nucleated Red Blood Cells % 0 %; Platelet Count 207 10^3/cmm (157-399); Red Blood Count 4.02 10^6/uL (3.85-5.65); White Blood Count 9.24 10^3/uL (3.29-11.43)
[2024-10-20 14:02] LABS: HCG, Serum Qual Positive (Negative)
[2024-10-20 14:04] LABS: Alanine Aminotransferase < 5 U/L (0-33); Albumin Level 3.8 g/dL (3.5-5.2); Alkaline Phosphatase 64 U/L (35-105); Anion Gap 18.0 (5-19); Aspartate Amino Transferase 8 U/L (0-32); Blood Urea Nitrogen 5 mg/dL (6-20); Calcium 8.8 mg/dL (8.5-10.5); Carbon Dioxide 20 mmol/L (22-29); Chloride 104 mmol/L (98-107); Creatinine Clr Calc Pharmacy 211.1094; Globulin 3.4 g/dL (1.3-4.6); Glucose 95 mg/dL (65-115); Lipase 18 U/L (13-60); Osmolality Calculated 283 mOsm/kg (285-295); Potassium 4.0 mmol/L (3.5-5.1); Sodium 138 mmol/L (136-145); Total Protein 7.2 g/dL (6.6-8.7)
[2024-10-20] MEDS: ondansetron 2 mg/ML SDV 2 mL 4 MG IVP (14:04)
[2024-10-20 14:13] LABS: Glucose Urine UA Negative (Normal); Nitrate Urine Negative (Negative); Specific Gravity, Urine 1.024 (1.005-1.030)
[2024-10-20 14:19] LABS: Add Urine Microscopic? YES
[2024-10-20 14:41] VITALS: BP 121/79; PULSE 72; O2SAT 99
== END 2024-10-20 14:48 | disposition home or self-care (01) ==
PROVIDERS: Emergency Provider Emergency Medicine; PCP Family Medicine
DX: O21.9 Vomiting of pregnancy, unspecified (principal); Z87.891 Personal history of nicotine dependence; Z3A.24 24 weeks gestation of pregnancy
CPT/HCPCS: 36415; 80053; 81001; 83690; 84703; 85025; 96361; 96374; 99284; J2405; J7030

== ENCOUNTER → 2024-10-21 12:28 | Outpatient (BNVA) | payer MEDICAID, SELFPAY | PROVIDERS: PCP Family Medicine; Visit Provider Nurse Practitioner Women's Health | DX: Z36.9 Encounter for antenatal screening, unspecified (principal); Z3A.24 24 weeks gestation of pregnancy | CPT/HCPCS: 76816; 84315 ==

== ENCOUNTER 2024-10-31 23:33 | Outpatient (CLI) | payer MEDICAID, SELFPAY ==
[2024-10-27 10:40] VITALS: BP 116/78; BMI 39.4
[2024-10-31 23:45] VITALS: BMI 39.2
[2024-10-31 23:46] VITALS: BP 110/62; PULSE 65
[2024-11-01] VITALS (14 sets, daily range): BP systolic 79–119; BP diastolic 45–64; PULSE 62–74; RESP 16
[2024-11-01 00:08] LABS: Glucose Urine UA Negative (Normal); Nitrate Urine Negative (Negative); Specific Gravity, Urine 1.028 (1.005-1.030)
[2024-11-01 00:31] LABS: UA Slide Review UA Slide Review Perf
[2024-11-01] MEDS: ceFAZolin 1,000 mg SDV 1000 MG (01:51)
[2024-11-01] MEDS: ondansetron 2 mg/ML SDV 2 mL 4 MG IVP (03:09)
== END 2024-11-01 03:15 | disposition home or self-care (01) ==
LOC: OPOB 23:38 → OBGYN 23:38
PROVIDERS: PCP Family Medicine; Visit Provider Obstetrics & Gynecology
DX: O26.899 Other specified pregnancy related conditions, unspecified trimester (principal); Z3A.00 Weeks of gestation of pregnancy not specified; N89.8 Other specified noninflammatory disorders of vagina; M54.9 Dorsalgia, unspecified
CPT/HCPCS: 81001; 83986; 99211

== ENCOUNTER → 2024-11-18 14:13 | Outpatient (BNVA) | payer MEDICAID, SELFPAY ==
[2024-10-27 10:40] VITALS: BP 116/78; BMI 39.4
== END ==
PROVIDERS: PCP Family Medicine; Visit Provider Obstetrics & Gynecology
DX: O09.299 Supervision of pregnancy with other poor reproductive or obstetric history, unspecified trimester (principal); Z86.32 Personal history of gestational diabetes
CPT/HCPCS: 82950; 84315; 85025

== ENCOUNTER → 2024-12-03 15:59 | Outpatient (BNVA) | payer MEDICAID, SELFPAY ==
[2024-10-27 10:40] VITALS: BP 116/78; BMI 39.4
== END ==
PROVIDERS: PCP Family Medicine; Visit Provider Obstetrics & Gynecology
DX: O09.299 Supervision of pregnancy with other poor reproductive or obstetric history, unspecified trimester (principal); Z86.32 Personal history of gestational diabetes
CPT/HCPCS: 84315; 87086

== ENCOUNTER 2024-12-04 14:44 | Outpatient (CLI) | payer MEDICAID, SELFPAY ==
[2024-10-27 10:40] VITALS: BP 116/78; BMI 39.4
[2024-12-04 15:06] VITALS: BP 110/64; PULSE 85
[2024-12-04 15:21] VITALS: BP 117/62; PULSE 89
[2024-12-04 15:36] VITALS: BP 115/59; PULSE 76
[2024-12-04 15:43] VITALS: BP 115/59; PULSE 76; O2SAT 96
== END 2024-12-04 15:43 | disposition home or self-care (01) ==
LOC: OPOB 14:45 → OBGYN 14:45
PROVIDERS: PCP Family Medicine; Visit Provider Obstetrics & Gynecology
DX: O26.899 Other specified pregnancy related conditions, unspecified trimester (principal); Z3A.00 Weeks of gestation of pregnancy not specified; R51.9 Headache, unspecified
CPT/HCPCS: 59025; 99211

== ENCOUNTER 2024-12-13 12:27 | Outpatient (CLI) | payer MEDICAID, SELFPAY ==
[2024-10-27 10:40] VITALS: BP 116/78; BMI 39.4
[2024-12-13] VITALS (8 sets, daily range): BP systolic 106–121; BP diastolic 57–61; PULSE 68–82; RESP 15–18; TEMP 35.9; O2SAT 97; BMI 38.9
[2024-12-13 13:50] LABS: Glucose Urine UA Negative (Normal); Nitrate Urine Negative (Negative); Specific Gravity, Urine 1.023 (1.005-1.030)
[2024-12-13 14:17] LABS: UA Slide Review UA Slide Review Perf
== END 2024-12-13 14:30 | disposition home or self-care (01) ==
LOC: OPOB 12:27 → OBGYN 12:28
PROVIDERS: PCP Family Medicine; Visit Provider Family Medicine
DX: O26.899 Other specified pregnancy related conditions, unspecified trimester (principal); Z3A.00 Weeks of gestation of pregnancy not specified; R10.9 Unspecified abdominal pain
CPT/HCPCS: 59025; 81001; 87086; 99211

== ENCOUNTER → 2024-12-15 14:54 | Outpatient (BNVA) | payer MEDICAID, SELFPAY ==
[2024-10-27 10:40] VITALS: BP 116/78; BMI 39.4
== END ==
PROVIDERS: PCP Family Medicine; Visit Provider Nurse Practitioner Women's Health
DX: O09.299 Supervision of pregnancy with other poor reproductive or obstetric history, unspecified trimester (principal); Z86.32 Personal history of gestational diabetes
CPT/HCPCS: 84315

== ENCOUNTER 2024-12-22 20:03 | Outpatient (CLI) | payer MEDICAID, SELFPAY ==
[2024-10-27 10:40] VITALS: BP 116/78; BMI 39.4
[2024-12-22 20:00] VITALS: BMI 38.4
[2024-12-22 20:12] VITALS: BP 105/67; PULSE 78
[2024-12-22 21:14] LABS: Hematocrit 34.1 % (36-47); Hemoglobin 11.40 g/dL (11.27-16.99); Mean Corpuscular HGB Conc 33.4 g/dL (30-55); Mean Corpuscular Hemoglobin 30.2 pg (27-33); Mean Corpuscular Volume 90.5 fl (85-98); Nucleated Red Blood Cells % 0 %; Platelet Count 188 10^3/cmm (157-399); Red Blood Count 3.77 10^6/uL (3.85-5.65); White Blood Count 10.28 10^3/uL (3.29-11.43)
[2024-12-22 21:28] LABS: Glucose Urine UA Negative (Normal); Nitrate Urine Negative (Negative); Specific Gravity, Urine 1.024 (1.005-1.030)
[2024-12-22 21:29] LABS: Alanine Aminotransferase 6 U/L (0-33); Albumin Level 3.9 g/dL (3.5-5.2); Alkaline Phosphatase 95 U/L (35-105); Anion Gap 17.8 (5-19); Aspartate Amino Transferase 12 U/L (0-32); Blood Urea Nitrogen 5 mg/dL (6-20); Calcium 9.0 mg/dL (8.5-10.5); Carbon Dioxide 20 mmol/L (22-29); Chloride 103 mmol/L (98-107); Creatinine Clr Calc Pharmacy 210.1414; Globulin 3.3 g/dL (1.3-4.6); Glucose 88 mg/dL (65-115); Osmolality Calculated 281 mOsm/kg (285-295); Potassium 3.8 mmol/L (3.5-5.1); Sodium 137 mmol/L (136-145); Total Protein 7.2 g/dL (6.6-8.7)
[2024-12-22 21:32] VITALS: BP 111/74; PULSE 68
--- NOTE | 2024-12-22 21:35 | PM.OBGYHP ---
Providers/Chief Complaint Admitting Physician: Bret Rios MD Primary CAVALRY SCOUT: Bret Rios MD Primary Care Provider: Monica Campo DO Chief Complaint: ABD PAIN HPI CAVALRY SCOUT History of Present Illness Carol Solano is a 29 year old female EDC February 05, 2025 At 33 w 4 d No complications Presents to L&D c/o onset of abdominal pain, nausea, and vomiting this afternoon Pain diffuse No fever, chills, dysuria No vaginal bleeding or discharge + active movements Present Details : 3 Para: 2 Medications/Allergies Home Medications ?Medication ?Instructions ?Recorded ?Confirmed ?Last Taken ?Type multivitamin no.51-ferrous 1 cap PO DAILY #30 caps 06/18/24 12/15/24 Unknown Rx fumarate 106.5 mg-folic acid 1 mg capsule (-U) ondansetron 4 mg disintegrating 4 mg PO Q6H PRN nausea and 11/18/24 12/15/24 Unknown Rx tablet vomiting #30 tabs cephalexin 250 mg capsule 250 mg PO TID 12/15/24 12/15/24 Unknown History azithromycin 500 mg tablet See Rx Instructions PO .COMPLEX #3 12/21/24 Unknown Rx tabs metronidazole 500 mg tablet 500 mg PO BID 7 days #14 tabs 12/21/24 Unknown Rx Allergies Allergy/AdvReac Type Severity Reaction Status Date / Time No Known Allergies Allergy Verified 12/22/24 21:41 PFSH CAVALRY SCOUT PFSH: Medical History PROM (premature rupture of membranes) SUE (generalized anxiety disorder) Vapes nicotine containing substance Caffeine dependence Affective disorder Cannabis use disorder Nicotine use disorder Bipolar 2 disorder On combination antipsychotic drug therapy Psychiatric care Anxiety Depression Gestational diabetes URI (upper respiratory infection) Pharyngitis No significant past medical history Family History Denies family history of Colon cancer Ovarian cancer Diabetes Heart disease Hyperlipidemia Breast cancer Uterine cancer Thyroid disease Stroke Social History Smoking and tobacco/nicotine status: former use of tobacco/nicotine Alcohol intake: never Substance/Drug Use: former Adopted: No Caregiver/support person: No Lives independently: No Household members: spouse and children Housing: House Marital status: Number of children: 2 Highest education level completed: High School Graduate service: No Current occupational status: unemployed Pets and animals: No Leisure activites: other 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 Do you think of yourself as: Bisexual Current gender identity: Female Kate/Yarsanism: Scientology Special kate needs: No Agree to transfusion: Yes Personal Safety: Do you feel safe at home: Yes History History History 2 Term 2 0 Miscarriages/Ectopic 0 Living Children 2 Care GILBERT Calculator Estimated Delivery Date Method Current WG Current Estimate 02/05/25 Ultrasound #1 33w 5d Specific Issues/Plans HX OF GDM IN PREVIOUS ANXIETY NAUSEA AND VOMITING Vitals/I&O/Wt Last Vital Signs Temp 98.1 F 12/23/24 12:30 Pulse 72 12/23/24 12:30 Resp 16 12/23/24 12:30 BP 100/59 12/23/24 12:30 O2 Del Method Room Air 12/23/24 09:48 12/23/24 12/23/24 12/23/24 06:59 14:59 22:59 Intake Total 1000 / 1000 Balance 1000 / 1000 Weight last 48 hrs Weight 238 lb Physical Exam Narrative: Weight 238 lbs; 5?5? VS afebrile, normal General comfortable, awake, alert Lungs: clear Cor: RRR Abd: soft, mild diffuse tenderness No rebound Cervix: closed / 25% / -4 / posterior Ext: normal External monitor: no UCs heart tracing good variability, + accelerations Data 12/22/24 21:00 12/22/24 21:00 Results Labs OB ([facility]): Obstetrics US 10/21/24 Blood Type O Positive 07/21/24 Antibody Screen Negative 07/21/24 Hct, (36-47) 34.1 % L 12/22/24 Hgb, (11.27-16.99) 11.40 g/dL 12/22/24 Rho(D) Type Rh positive 07/21/24 Plt Count, (157-399) 188 10^3/cmm 12/22/24 Hep Bs Antigen, (Nonreactive) Non-reactive 07/21/24 Hepatitis C Antibody, (Nonreactive) Non-reactive 07/21/24 Rubella IgG Antibody, (0.0-10.0) 51.9 IU/mL H 07/21/24 RPR, (Nonreactive) Nonreactive 07/21/24 HIV 1&2 Ab & HIV 1 Ag, (Non-Reactiv) Non-reactive 07/21/24 TSH, (0.27-4.20) 0.47 uIU/mL 07/21/24 Glucose 1 Hr 50 gm, (85-140) 112 mg/dL 11/18/24 Ser , Semi-Qnt 80049.00 mIU/mL 06/18/24 HCG, Qual, (Negative) Positive H 10/20/24 Urine Opiates Screen, (Negative) Negative ng/mL 07/21/24 Ur Barbiturates Screen, (Negative) Negative ng/mL 07/21/24 Ur Phencyclidine Scrn, (Negative) Negative ng/mL 07/21/24 Ur Amphetamines Screen, (Negative) Negative ng/mL 07/21/24 U Benzodiazepines Scrn, (Negative) Negative ng/mL 07/21/24 Urine Cocaine Screen, (Negative) Negative ng/mL 07/21/24 U Marijuana (THC) Screen, (Negative) Positive ng/mL H 07/21/24 Micro Urine Specimen 12/13/24 Pap Smear Interpret See note 08/10/24 A&P Assessment and plan 1. : 33 w 4 d 2. Abdominal pain: Abdominal pain, nausea, vomiting Most likely acute gastroenteritis Doubt appendicitis, cholecystitis, UTI Plan observation, IV fluids, Zofran PDMP PDMP Reviewed: Not Reviewed Attestations Medical Necessity Statement*: patient at 33 w 4 d with abdominal pain Coding Level of Care Code Acute Code for Chg Fwd Diagnoses Z34.90 Abdominal pain R10.9
[2024-12-22 21:47] VITALS: BP 102/69; PULSE 70
[2024-12-22 21:56] LABS: Nitrazine Paper, PH Negative
[2024-12-22] MEDS: ondansetron 2 mg/ML SDV 2 mL 4 MG IVP (22:22)
[2024-12-22 22:56] VITALS: BP 103/59; PULSE 71
[2024-12-22 23:56] VITALS: BP 107/59; PULSE 78
[2024-12-23] VITALS (15 sets, daily range): BP systolic 92–110; BP diastolic 51–67; PULSE 72–90; RESP 16; TEMP 36.7
[2024-12-23] MEDS: ondansetron 2 mg/ML SDV 2 mL 4 MG IVP ×2 (04:13→09:42)
--- NOTE | 2024-12-23 10:30 | P.PN_ITS ---
DOCUMENTATION IMPROVEMENT SPECIALIST Subjective 2 Subjective: Interval history: States no further vomiting still has nausea Tolerating fluids and some food Abdominal pain less Labor: Amniotic Membrane Status: Intact Monitor Mode: External C ontraction Pattern: Absent Vitals/I&O/Wt Last Vital Signs Temp 98.1 F 12/23/24 12:30 Pulse 72 12/23/24 12:30 Resp 16 12/23/24 12:30 BP 100/59 12/23/24 12:30 O2 Del Method Room Air 12/23/24 09:48 12/23/24 12/23/24 12/23/24 06:59 14:59 22:59 Intake Total 1000 / 1000 Balance 1000 / 1000 Weight last 48 hrs Weight 238 lb Physical Exam 2 Narrative: General comfortable, awake, alert VS afebrile, normal Abd: soft, nontender Data 12/22/24 21:00 12/22/24 21:00 A&P Assessment and plan 1. : 33 w 5 d 2. Abdominal pain: Abdominal pain, nausea, vomiting Most likely acute gastroenteritis Doubt appendicitis, cholecystitis, UTI Much improved Plan discharge to home Rest, fluids Call / return if fever, chills, nausea, vomiting, abdominal pain, dysuria f/u OB clinic PDMP PDMP Reviewed: Not Reviewed Attestations 2 Medical Necessity Statement*: patient at 33 w 5 d with abdominal pain, improved, plan to discharge to home today Coding Level of Care Code Acute Code for Chg Fwd Diagnoses Z34.90 Abdominal pain R10.9
--- NOTE | 2024-12-23 10:35 | PM.OBGYDC ---
Discharge Providers PLANE TENDER Date of Admission: December 22, 2024 Date of Discharge: 12/23/24 Attending Provider at Admission: Bret Rios MD Attending Provider at Discharge: Bret Rios MD Consults: none Primary PLANE TENDER: Bret Rios MD Primary Care Provider: Monica Campo DO Diagnoses at Discharge Discharge Diagnosis 1. , unspecified gestational age: Details from hospital stay: 29 y.o. [facility] February 05, 2025 At 33 w 4 d No complications Presents to L&D c/o onset of abdominal pain, nausea, and vomiting this afternoon Pain diffuse No fever, chills, dysuria No vaginal bleeding or discharge + active movements On exam, patient was afebrile; had mild abdominal tenderness, no rebound WBC, LFTs, UA were normal patient was diagnosed most likely to have acute gastroenteritis patient was observed, given IV fluid, and Zofran She improved overnight, was able to eat, had much less abdominal pain, and was discharged to home 2. Left lower quadrant abdominal pain: Reason for Visit Reason for Visit: ABD PAIN Brief History: 29 y.o. [facility] February 05, 2025 At 33 w 4 d No complications Presents to L&D c/o onset of abdominal pain, nausea, and vomiting this afternoon Pain diffuse No fever, chills, dysuria No vaginal bleeding or discharge + active movements Hospital Course Hospital Course 29 y.o. [facility] February 05, 2025 At 33 w 4 d No complications Presents to L&D c/o onset of abdominal pain, nausea, and vomiting this afternoon Pain diffuse No fever, chills, dysuria No vaginal bleeding or discharge + active movements On exam, patient was afebrile; had mild abdominal tenderness, no rebound WBC, LFTs, UA were normal patient was diagnosed most likely to have acute gastroenteritis patient was observed, given IV fluid, and Zofran She improved overnight, was able to eat, had much less abdominal pain, and was discharged to home Physical Exam Narrative: General comfortable, awake, alert VS afebrile, normal Abd: soft, nontender History History History 2 Term 2 0 Miscarriages/Ectopic 0 Living Children 2 Discharge Data Studies Completed and Pending Laboratory Results WBC 10.28 10^3/uL (3.29-11.43) 12/22/24 21:00 RBC 3.77 10^6/uL (3.85-5.65) L 12/22/24 21:00 Hgb 11.40 g/dL (11.27-16.99) 12/22/24 21:00 Hct 34.1 % (36-47) L 12/22/24 21:00 MCV 90.5 fl (85-98) 12/22/24 21:00 MCH 30.2 pg (27-33) 12/22/24 21: MCHC 33.4 g/dL (30-55) 12/22/24 21:00 RDW 13.9 % (12.1-15.1) 12/22/24 21:00 Plt Count 188 10^3/cmm (157-399) 12/22/24 21:00 MPV 9.8 fL (7.4-10.4) 12/22/24 21:00 Neut % (Auto) 82.5 % 12/22/24 21:00 Lymph % (Auto) 11.5 % 12/22/24 21:00 Cross % (Auto) 5.1 % 12/22/24 21:00 Eos % (Auto) 0.4 % 12/22/24 21:00 Baso % (Auto) 0.1 % 12/22/24 21:00 Neut # (Auto) 8.49 10^3/uL (1.8-7.7) H 12/22/24 21:00 Lymph # (Auto) 1.2 10^3/uL (0.8-4.8) 12/22/24 21:00 Cross # (Auto) 0.5 10^3/uL (0.2-0.9) 12/22/24 21:00 Eos # (Auto) 0.0 10^3/uL (0.0-0.8) 12/22/24 21:00 Baso # (Auto) 0.0 10^3/uL (0.0-0.1) 12/22/24 21:00 Nucleated RBC % (auto) 0 % 12/22/24 21:00 Nucleated RBCs # 0.0 /100WBC 12/22/24 21:00 Sodium 137 mmol/L (136-145) 12/22/24 21:00 Potassium 3.8 mmol/L (3.5-5.1) 11/04/25 21:00 Chloride 103 mmol/L (98-107) 12/22/24 21:00 Carbon Dioxide 20 mmol/L (22-29) L 12/22/24 21:00 Anion Gap 17.8 (5-19) 12/22/24 21:00 BUN 5 mg/dL (6-20) L 12/22/24 21:00 Creatinine 0.5 mg/dL (0.5-0.9) 12/22/24 21: GFR Calculation 148.0 mL/min (90-130) H 12/22/24 21:00 Glucose 88 mg/dL (65-115) 12/22/24 21: Calculated Osmolality 281 mOsm/kg (285-295) L 12/22/24 21: Calcium 9.0 mg/dL (8.5-10.5) 12/22/24 21: Total Bilirubin 0.4 mg/dL (0.15-1.2) 12/22/24 21: AST 12 U/L (0-32) 12/22/24 21:00 ALT 6 U/L (0-33) 12/22/24 21:00 Alkaline Phosphatase 95 U/L (35-105) 12/22/24 21:00 Total Protein 7.2 g/dL (6.6-8.7) 12/22/24 21: Albumin 3.9 g/dL (3.5-5.2) 12/22/24 21: Globulin 3.3 g/dL (1.3-4.6) 12/22/24 21:00 Urine Color [place] (Yellow) A 12/22/24: Urine Appearance Cloudy (CLEAR) A 12/22/24 21: Urine pH 6.0 (5-7) 12/22/24 21:16 Ur Specific [place] 1.024 (1.005-1.030) 12/22/24 21: Urine Protein 1+ (Negative) A 12/22/24: Urine Glucose (UA) Negative (Normal) 12/22/24 21: Urine Ketones 4+ (Negative) 12/22/24 21: Urine Blood Negative (Negative) 12/22/24 21: Urine Nitrate Negative (Negative) 12/22/24 21: Urine Bilirubin Negative (Negative) 12/22/24 21:16 Urine Urobilinogen 1.0 mg/dL (Negative) 12/22/24 21:16 Ur Leukocyte Esterase Trace (Negative) A 12/22/24 21:16 Urine RBC 0-2 /hpf (0-2) 12/22/24 21:16 Urine WBC 0-5 /hpf (0-5) 12/22/24 21:16 Ur Squamous Epith Cells 6-10 /hpf (0-5) 12/22/24 21:16 Amorphous Sediment Not Reportable 12/22/24 21:16 Urine Bacteria None seen /hpf (NONE) 12/22/24 21:16 Hyaline Casts 2.46 /lpf 12/22/24 21:16 Fluid pH (paper) Negative 12/22/24 20:20 Vitals Last Vital Signs Temp 98.1 F 12/23/24 12:30 Pulse 72 12/23/24 12:30 Resp 16 12/23/24 12:30 BP 100/59 12/23/24 12:30 O2 Del Method Room Air 12/23/24 09:48 Results Labs OB ([facility]): Obstetrics US 10/21/24 Blood Type O Positive 07/21/24 Antibody Screen Negative 07/21/24 Hct, (36-47) 34.1 % L 12/22/24 Hgb, (11.27-16.99) 11.40 g/dL 12/22/24 Rho(D) Type Rh positive 07/21/24 Plt Count, (157-399) 188 10^3/cmm 12/22/24 Hep Bs Antigen, (Nonreactive) Non-reactive 07/21/24 Hepatitis C Antibody, (Nonreactive) Non-reactive 07/21/24 Rubella IgG Antibody, (0.0-10.0) 51.9 IU/mL H 07/21/24 RPR, (Nonreactive) Nonreactive 07/21/24 HIV 1&2 Ab & HIV 1 Ag, (Non-Reactiv) Non-reactive 07/21/24 TSH, (0.27-4.20) 0.47 uIU/mL 07/21/24 Glucose 1 Hr 50 gm, (85-140) 112 mg/dL 11/18/24 Ser , Semi-Qnt 37397.00 mIU/mL 06/18/24 HCG, Qual, (Negative) Positive H 10/20/24 Urine Opiates Screen, (Negative) Negative ng/mL 07/21/24 Ur Barbiturates Screen, (Negative) Negative ng/mL 07/21/24 Ur Phencyclidine Scrn, (Negative) Negative ng/mL 07/21/24 Ur Amphetamines Screen, (Negative) Negative ng/mL 07/21/24 U Benzodiazepines Scrn, (Negative) Negative ng/mL 07/21/24 Urine Cocaine Screen, (Negative) Negative ng/mL 07/21/24 U Marijuana (THC) Screen, (Negative) Positive ng/mL H 07/21/24 Micro Urine Specimen 12/13/24 Pap Smear Interpret See note 08/10/24 Discharge Plan Discharge Patient Disposition: Home Prescriptions: No Action ondansetron 4 mg tablet,disintegrating 4 mg PO Q6H PRN (Reason: nausea and vomiting) Qty: 30 2RF cephalexin 250 mg capsule 250 mg PO TID metronidazole 500 mg tablet 500 mg PO BID 7 Days Qty: 14 0RF azithromycin 500 mg tablet See Rx Instructions PO .COMPLEX Qty: 3 0RF Rx Instructions: For 500 mg dose pack: take 500 mg once daily for 3 days PO -U 106.5-1 mg capsule 1 cap PO DAILY Qty: 30 0RF Discharge Order = DC NOW: Discharge Order (Routine); Ordered 12/23/24 Ordered By: Bret Rios Referrals: Bret Rios MD [Physician, PLANE TENDER] - 01/11/25 4:00 pm Diet: Usual diet Activity: Increase activity as tolerated Patient Instructions: Gastroenteritis (DC), Urinary Tract Infection in (DC), Kick Counts in (DC), OB Undelivered Discharge Print Language: Burmese Discharge Date/Time: 12/23/24 12:37 Discharge Attestations PLANE TENDER Time Spent in Discharge Care*: less than 30 min Coding Level of Care Code Acute Code for Chg Fwd Diagnoses , unspecified gestational age Z34.90 Weeks of gestation: unspecified Left lower quadrant abdominal pain R10.32 Abdominal location: left lower quadrant
== END 2024-12-23 12:37 | disposition home or self-care (01) ==
LOC: OPOB 20:04 → OBGYN 20:05
PROVIDERS: PCP Family Medicine; Visit Provider Obstetrics & Gynecology
DX: O26.899 Other specified pregnancy related conditions, unspecified trimester (principal); Z3A.00 Weeks of gestation of pregnancy not specified; R10.9 Unspecified abdominal pain
CPT/HCPCS: 36415; 59025; 80053; 81001; 83986; 85025; 96374; 99211; J2405; J7121

== ENCOUNTER → 2024-12-29 13:10 | Outpatient (BNVA) | payer MEDICAID, SELFPAY ==
[2024-10-27 10:40] VITALS: BP 116/78; BMI 39.4
== END ==
PROVIDERS: PCP Family Medicine; Visit Provider Nurse Practitioner Women's Health
DX: O09.299 Supervision of pregnancy with other poor reproductive or obstetric history, unspecified trimester (principal); Z86.32 Personal history of gestational diabetes
CPT/HCPCS: 84315

== ENCOUNTER 2025-01-11 16:28 | Outpatient (CLI) | payer MEDICAID, SELFPAY ==
[2024-10-27 10:40] VITALS: BP 116/78; BMI 39.4
[2025-01-11 16:40] VITALS: BP 119/73; PULSE 82
[2025-01-11 16:44] VITALS: BMI 39.0
--- NOTE | 2025-01-11 16:54 | USR_ITS ---
PROCEDURE INFORMATION: Exam: US Biophysical Profile Without Non-Stress Test Exam date and time: 01/11/2025 5:39 PM Age: 29 years old Clinical indication: Condition or disease; Amniotic fluid abnormalities: ; Oligohydramnios - low volume; Third trimester (>=28 weeks 0 days); ; Additional info: Low antione TECHNIQUE: Imaging protocol: US biophysical profile without non-stress testing. COMPARISON: US OB >= 14 weeks fetus [facility] 12/29/2024 12:48 PM FINDINGS: heart rate: 145 bpm. heart rate 145 bpm which is within normal limits. Amniotic fluid index: ANTIONE is 11.72 cm. ANTIONE 11.72 cm which is within normal limits. BIOPHYSICAL PROFILE: breathing (BPP): 2 out of 2. gross body movement (BPP): 2 out of 2. tone (BPP): 2 out of 2. Amniotic fluid (BPP): 2 out of 2. Biophysical profile score (BPP): 8/8. MATERNAL ANATOMY: Cervix: Cervical length measures 0 cm. Cervix is closed. US/US OB BPP NST [id number] IMPRESSION: Normal intrauterine as described.
== END 2025-01-11 18:05 | disposition home or self-care (01) ==
LOC: OPOB 16:31 → OBGYN 16:31
PROVIDERS: PCP Family Medicine; Visit Provider Obstetrics & Gynecology
DX: O28.8 Other abnormal findings on antenatal screening of mother (principal); Z3A.00 Weeks of gestation of pregnancy not specified
CPT/HCPCS: 59025; 76819; 84315; 87081; 99211

== ENCOUNTER → 2025-01-18 16:12 | Outpatient (BNVA) | payer MEDICAID, SELFPAY ==
[2024-10-27 10:40] VITALS: BP 116/78; BMI 39.4
== END ==
PROVIDERS: PCP Family Medicine; Visit Provider Obstetrics & Gynecology
DX: O09.293 Supervision of pregnancy with other poor reproductive or obstetric history, third trimester (principal); Z3A.37 37 weeks gestation of pregnancy; Z86.32 Personal history of gestational diabetes
CPT/HCPCS: 84315

== ENCOUNTER 2025-01-19 14:15 | Outpatient (CLI) | payer MEDICAID, SELFPAY ==
[2024-10-27 10:40] VITALS: BP 116/78; BMI 39.4
[2025-01-19 14:15] VITALS: BMI 38.6
[2025-01-19 14:26] VITALS: BP 110/63; PULSE 76
[2025-01-19 14:46] VITALS: BP 112/69; PULSE 74
[2025-01-19 14:53] LABS: Glucose Urine UA Negative (Normal); Nitrate Urine Negative (Negative); Specific Gravity, Urine 1.024 (1.005-1.030)
[2025-01-19 14:59] LABS: Universal Test for UA Present (0)
[2025-01-19 15:06] VITALS: BP 112/66; PULSE 72
[2025-01-19 15:17] LABS: UA Manual Slide Review YES; UA Slide Review UA Slide Review Perf
== END 2025-01-19 15:30 | disposition home or self-care (01) ==
LOC: OPOB 14:17 → OBGYN 14:17
PROVIDERS: PCP Family Medicine; Visit Provider Obstetrics & Gynecology
DX: O26.899 Other specified pregnancy related conditions, unspecified trimester (principal); Z3A.00 Weeks of gestation of pregnancy not specified; R52 Pain, unspecified
CPT/HCPCS: 59025; 81001; 99211

== ENCOUNTER → 2025-01-22 17:56 | Outpatient (BNVA) | payer MEDICAID, SELFPAY ==
[2024-10-27 10:40] VITALS: BP 116/78; BMI 39.4
== END ==
PROVIDERS: PCP Family Medicine; Visit Provider Emergency Medicine
DX: J02.9 Acute pharyngitis, unspecified (principal)
CPT/HCPCS: 87071; 87880

== ENCOUNTER 2025-01-25 16:29 | Outpatient (CLI) | payer MEDICAID, SELFPAY ==
[2024-10-27 10:40] VITALS: BP 116/78; BMI 39.4
[2025-01-25 16:42] VITALS: BP 115/62; PULSE 85
[2025-01-25 16:45] VITALS: BMI 39.2
[2025-01-25 16:57] VITALS: BP 111/57; PULSE 80
[2025-01-25 17:12] VITALS: BP 109/62; PULSE 82
== END 2025-01-25 17:20 | disposition home or self-care (01) ==
LOC: OPOB 16:31 → OBGYN 16:32
PROVIDERS: PCP Family Medicine; Visit Provider Obstetrics & Gynecology
DX: O36.8190 Decreased fetal movements, unspecified trimester, not applicable or unspecified (principal); Z3A.00 Weeks of gestation of pregnancy not specified
CPT/HCPCS: 59025; 84315; 99211

== ENCOUNTER 2025-01-30 14:41 | Outpatient (CLI) | payer MEDICAID, SELFPAY ==
[2024-10-27 10:40] VITALS: BP 116/78; BMI 39.4
[2025-01-30 14:41] VITALS: BMI 39.2
[2025-01-30 14:52] VITALS: BP 114/70; PULSE 84
[2025-01-30 15:07] VITALS: BP 104/58; PULSE 74
[2025-01-30 15:22] VITALS: BP 109/56; PULSE 83
[2025-01-30 16:37] VITALS: BP 123/61; PULSE 64
[2025-01-30 16:59] VITALS: BP 121/66; PULSE 70
== END 2025-01-30 17:15 | disposition home or self-care (01) ==
LOC: OPOB 14:44 → OBGYN 14:44
PROVIDERS: PCP Family Medicine; Visit Provider Obstetrics & Gynecology
DX: O26.859 Spotting complicating pregnancy, unspecified trimester (principal); Z3A.00 Weeks of gestation of pregnancy not specified; R52 Pain, unspecified
CPT/HCPCS: 59025; 99211

== ENCOUNTER 2025-01-31 09:54 | Inpatient (IN) | payer MEDICAID, SELFPAY ==
[2024-10-27 10:40] VITALS: BP 116/78; BMI 39.4
[2025-01-31] VITALS (57 sets, daily range): BP systolic 103–151; BP diastolic 59–84; PULSE 65–108; RESP 16–18; TEMP 36.4–36.9; O2SAT 97–100; BMI 39.2
[2025-01-31 07:34] LABS: Hematocrit 30.9 % (36-47); Hemoglobin 10.30 g/dL (11.27-16.99); Mean Corpuscular HGB Conc 33.3 g/dL (30-55); Mean Corpuscular Hemoglobin 30.5 pg (27-33); Mean Corpuscular Volume 91.4 fl (85-98); Nucleated Red Blood Cells % 0 %; Platelet Count 188 10^3/cmm (157-399); Red Blood Count 3.38 10^6/uL (3.85-5.65); White Blood Count 5.65 10^3/uL (3.29-11.43)
[2025-01-31] MEDS: oxytocin 30 UNIT/500 ML BAG IV (07:53)
--- NOTE | 2025-01-31 10:50 | P.HP_ITS ---
Providers/Chief Complaint 2 Admitting Physician: Bret Rios MD Primary MAINTENANCE AND OPERATIONS SUPERVISOR: Bret Rios MD Primary Care Provider: Bret Rios MD Chief Complaint: IOL HPI MAINTENANCE AND OPERATIONS SUPERVISOR History of Present Illness Carol Solano is a 29 year old female EDC February 05, 2025 At 39 w 2 d No complications Admitted for elective induction of labor No c/o + active movements Labs Rubella: Immune RPR: Negative GBS: Negative Medications/Allergies Home Medications ?Medication ?Instructions ?Recorded ?Confirmed ?Last Taken ?Type multivitamin no.51-ferrous 1 cap PO DAILY #30 caps 03/1401/31/25 01/25/25 Rx fumarate 106.5 mg-folic acid 1 mg capsule (-U) ondansetron 4 mg disintegrating 4 mg PO Q6H PRN nausea and 01/18/25 01/31/25 Unknown Rx tablet vomiting #30 tabs Allergies Allergy/AdvReac Type Severity Reaction Status Date / Time No Known Allergies Allergy Verified 01/25/25 16:07 PFSH MAINTENANCE AND OPERATIONS SUPERVISOR 2 PFSH: Medical History PROM (premature rupture of membranes) SUE (generalized anxiety disorder) Vapes nicotine containing substance Caffeine dependence Affective disorder Cannabis use disorder Nicotine use disorder Bipolar 2 disorder On combination antipsychotic drug therapy Psychiatric care Anxiety Depression Gestational diabetes URI (upper respiratory infection) Pharyngitis No significant past medical history Family History Denies family history of Colon cancer Ovarian cancer Diabetes Heart disease Hyperlipidemia Breast cancer Uterine cancer Thyroid disease Stroke Social History (Updated 01/25/25 @ 16:08 by rAiel Aguilar CNA) Smoking and tobacco/nicotine status: former use of tobacco/nicotine Alcohol intake: never Substance/Drug Use: never Adopted: No Caregiver/support person: No Lives independently: No Household members: spouse and children Housing: House Marital status: Number of children: 2 Highest education level completed: High School Graduate service: No Current occupational status: unemployed Pets and animals: No Leisure activites: other 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 Date GA/Weeks Outcome Route Wt Inf Gender Labor Lgth Comp. Anesth esia Location 10/04/16 38 live - full term Vaginal 8 lb 2 oz Male [facility] Dr. Castañeda 03/03/22 37 live - Vaginal 8 lb 3 oz Male [facility] Dr. Campo Delivery Date: 10/04/16 Last Updated by: Ariel Aguilar CNA gestational diabetes Delivery Date: 03/03/22 Last Updated by: Ariel Aguilar CNA spontaneous rupture of membranes Care GILBERT Calculator 2 Estimated Delivery Date Method Current WG Current Estimate 02/05/25 Ultrasound #1 39w 3d Specific Issues/Plans * * HX OF GDM IN PREVIOUS * ANXIETY * NAUSEA AND VOMITING Vitals/I&O/Wt Last Vital Signs Temp 97.9 F 02/01/25 04:00 Pulse 66 02/01/25 04:00 Resp 16 02/01/25 04:00 BP 93/59 02/01/25 04:00 Pulse Ox 99 02/01/25 04:00 O2 Del Method Room Air 02/01/25 04:00 01/31/25 01/31/25 02/01/25 14:59 22:59 06:59 Intake Total 898.95 / 898.95 335.75 / 1234.70 Output Total 300 / 300 Balance 898.95 / 898.95 35.75 / 934.70 Weight last 48 hrs Weight 243 lb Physical Exam 2 Narrative: Weight 243 lbs; 5?5?; BMI 39 VS normal General comfortable, awake, alert Lungs: clear Cor: RRR FH 38 cm; cephalic Cervix: 2 cm Ext: normal External monitor: heart tracing good variability, + accelerations Urinary Catheter Management: Mills: Cath Placed During This Visit: yes, but has since been removed by the nurse Reason for Continuing Indwelling Catheter: Decision to DC Catheter Urinary Catheter Date of Insertion: 01/31/25 Urinary Catheter Time of Insertion: 16:15 Date Urinary Catheter Removed: 01/31/25 Time Urinary Catheter Discontinued: 19:15 Data 01/31/25 07:24 Results Labs OB ([facility]): 2 Obstetrics US 12/29/24 Obstetrics US/Biophysical Profile Blood Type O Positive 01/31/25 Antibody Screen Negative 01/31/25 Hct, (36-47) 30.9 % L 01/31/25 Hgb, (11.27-16.99) 10.30 g/dL L 01/31/25 Rho(D) Type Rh positive 01/31/25 Plt Count, (157-399) 188 10^3/cmm 01/31/25 Hep Bs Antigen, (Nonreactive) Non-reactive 07/21/24 Hepatitis C Antibody, (Nonreactive) Non-reactive 05/12 Rubella IgG Antibody, (0.0-10.0) 51.9 IU/mL H 5 RPR, (Nonreactive) Nonreactive 07/21/24 HIV 1&2 Ab & HIV 1 Ag, (Non-Reactiv) Non-reactive 05/12 TSH, (0.27-4.20) 0.47 uIU/mL 07/21/24 Glucose 1 Hr 50 gm, (85-140) 112 mg/dL 11/18/24 Ser , Semi-Qnt 80522.00 mIU/mL 06/18/24 HCG, Qual, (Negative) Positive H 10/20/24 Urine Opiates Screen, (Negative) Negative ng/mL 5 Ur Barbiturates Screen, (Negative) Negative ng/mL 07/21 Ur Phencyclidine Scrn, (Negative) Negative ng/mL Ur Amphetamines Screen, (Negative) Negative ng/mL 07/21 U Benzodiazepines Scrn, (Negative) Negative ng/mL 07/21 Urine Cocaine Screen, (Negative) Negative ng/mL 5 U Marijuana (THC) Screen, (Negative) Positive ng/mL H 05/12 Micro Urine Specimen 12/13/24 Pap Smear Interpret See note 08/10/24 A&P Assessment and plan 1. : 39 w 2 d Fetus reassuring Admit for elective induction of labor Plan start Pitocin per protocol h/o x two Rh + PDMP PDMP Reviewed: Not Reviewed Attestations 2 Medical Necessity Statement*: patient at 39 w 2 d, admitted for induction of labor Coding Level of Care Code Acute Code for Chg Fwd Diagnoses Z34.90
--- NOTE | 2025-01-31 10:52 | P.ANESASSM_ITS ---
Pre-Anesthetic Assessment Height/Weight: Height 1.68 m Weight 110.223 kg Temp Pulse Resp BP Pulse Ox O2 Del Method 97.5 F L 72 16 113/66 97 Room Air 01/31/25 06:56 01/31/25 09:59 01/31/25 06:56 01/31/25 09:59 01/31/25 06:56 01/31/25 07:30 Epidural Familial anesthetic complications: Never had anesthesia, no family complications Was Beta Cody taken within 24 hours: N/A Was Clonidine taken within 24 hours: N/A Last intake: 06 solids Social No alcohol and No tobacco (Quit vaping in May 2024) Exam alert, oriented x 3, clear to auscultation bilaterally and regular rate & rhythm Airway Submandibular: within normal limits Cervical ROM: within normal limits (Tongue ting) Mallampati: Class II Dentition: full History/ROS No significant history except as noted and No significant complaints Pulmonary Asthma CV/HEM Anemia Frequent UTIs Hepatic None reported GI Gastroesophageal Reflux Disease N/V with Metabolic Diabetes Mellitus (Hx gestational diabetes) and Morbid Obesity [facility] None reported Neuropsych Anxiety and Depression Anesthetic Plan ASA status: 3 Anesthesia: Anesthesia Evaluation, General and Regional (specify below) Risk of > 500 ml blood loss (7ml/kg in children): Yes, adequate IV access and fluids planned Medications/Allergies Home Medications ?Medication ?Instructions ?Recorded ?Confirmed ?Last Taken ?Type multivitamin no.51-ferrous 1 cap PO DAILY #30 caps 03/1401/31/25 01/25/25 Rx fumarate 106.5 mg-folic acid 1 mg capsule (-U) ondansetron 4 mg disintegrating 4 mg PO Q6H PRN nausea and 01/18/25 01/31/25 Unknown Rx tablet vomiting #30 tabs Allergies Allergy/AdvReac Type Severity Reaction Status Date / Time No Known Allergies Allergy Verified 01/25/25 16:07 Current Medications Generic Name Dose Route Start Last Admin Trade Name Freq PRN Reason Stop Dose Admin Dextrose/Lactated Ringer's 1,000 mls @ 125 mls/hr 01/31/25 07:00 01/31/25 07:52 Dextrose 5%-Lactated Ringers IV 125 mls/hr .Q8H ABE Administration Oxytocin 30 unit in 500 mls @ 1 mls/hr 01/31/25 07:15 01/31/25 07:53 Pitocin IV 1 milliunit/min .Q24H ABE 1 mls/hr Protocol Administration 1 MILLIUNIT/MIN PFSH Anesthesia Medical History PROM (premature rupture of membranes) SUE (generalized anxiety disorder) Vapes nicotine containing substance Caffeine dependence Affective disorder Cannabis use disorder Nicotine use disorder Bipolar 2 disorder On combination antipsychotic drug therapy Psychiatric care Anxiety Depression Gestational diabetes URI (upper respiratory infection) Pharyngitis No significant past medical history Family History Denies family history of Colon cancer Ovarian cancer Diabetes Heart disease Hyperlipidemia Breast cancer Uterine cancer Thyroid disease Stroke Social History (Updated 01/25/25 @ 16:08 by Ariel Aguilar CNA) Smoking and tobacco/nicotine status: former use of tobacco/nicotine Alcohol intake: never Substance/Drug Use: never Adopted: No Caregiver/support person: No Lives independently: No Household members: spouse and children Housing: House Marital status: Number of children: 2 Highest education level completed: High School Graduate service: No Current occupational status: unemployed Pets and animals: No Leisure activites: other 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
[2025-01-31] MEDS: fentaNYL 50 mcg/mL INJ 2mL IVP (13:25)
[2025-01-31] MEDS: ondansetron 2 mg/ML SDV 2 mL 4 MG IVP (14:37)
[2025-01-31] MEDS: ROPivacaine premix 200 MG/100 ML PREMIX 10 MG EPIDURAL (14:40)
--- NOTE | 2025-01-31 15:21 | P.ANES_ITS ---
Anesthesia Procedures Procedure/Date: 01/31/25 Epidural: Time Out Performed: Yes Consents Signed: Procedure Consent and NPO Consent Consent: requested by attending/covering physician, from patient, risks and benefits reviewed and patient agrees to proceed Lumbar Level: L3-L4 Epidural position: sitting Epidural procedure: sterile prep of area (betadine), 1% lidocaine to numb the area (3 mLs), neg for paresthesia, test dose given, 1.5% xylocaine 1:200k epi (3 mLs/ 2 mLs), 0.2% Ropivacaine bolus ml (5 mLs), placed PCEA, no systemic response, sterile dressing applied, L.U.D. no apparent complications and 0.2% Ropiavacaine @ mls/hr (13) Additional Comments: Attempt x2. TERENCE 7cm, catheter threaded to 13cm. Negative aspiration for blood and CSF. Patient tolerated well. SUPPORT SERVICES TECH button education given and patient verbalized understanding.
[2025-01-31] MEDS: metoclopramide 5 mg/mL SDV 2 mL 10 MG IV (16:13)
--- NOTE | 2025-01-31 20:10 | P.PCNOB_ITS ---
Delivery Note: Date of delivery: January 31, 2025 Pre-delivery diagnoses: 39 w 2 d induction of labor Post-delivery diagnoses: 39 w 2 d induction of labor vaginal delivery Procedure: induction of labor vaginal delivery Op report anesthesia: Epidural Delivering Physician: Bret Rios MD Estimated blood loss (mL): 300 Findings: , vigorous male 2+ meconium-stained fluid Nuchal cord x two Cord gases obtained Cord blood obtained Normal placenta and cord No episiotomy / lacerations EBL: 300 cc No complications Pre-Delivery Course: normal labor course fetus was reassuring throughout Delivery: vaginal Post-Delivery Status: good History History History 3 Term 2 0 Miscarriages/Ectopic 0 Living Children 2 Past Pregnancies Del. Date GA/Weeks Outcome Route Wt Inf Gender Labor Lgth Comp. Anesth esia Location 10/04/16 38 live - full term Vaginal 8 lb 2 oz Male [facility] [address]. Castañeda 03/03/22 37 live - [facility] Delivery Date: 10/04/16 Last Updated by: Ariel Aguilar CNA gestational diabetes Delivery Date: 03/03/22 Last Updated by: Ariel Aguilar CNA spontaneous rupture of membranes A&P Assessment and plan 1. Vaginal delivery: PDMP PDMP Reviewed: Not Reviewed Coding Level of Care Code Acute Code for Chg Fwd Diagnoses Vaginal delivery O80
[2025-02-01 01:02] VITALS: BP 106/63; PULSE 82; RESP 16; TEMP 36.7; O2SAT 97
[2025-02-01 02:00] VITALS: BP 123/77; PULSE 82; RESP 16; TEMP 36.9; O2SAT 98
[2025-02-01 04:00] VITALS: BP 93/59; PULSE 66; RESP 16; TEMP 36.6; O2SAT 99
[2025-02-01 06:00] VITALS: BP 93/60; PULSE 68; RESP 16; TEMP 36.8; O2SAT 99
[2025-02-01] MEDS: PRENATAL VIT NO.130/IRON/FOLIC 1 EACH TABLET PO (06:03)
[2025-02-01 09:24] LABS: Hematocrit 28.6 % (36-47); Hemoglobin 9.30 g/dL (11.27-16.99); Mean Corpuscular HGB Conc 32.5 g/dL (30-55); Mean Corpuscular Hemoglobin 30.1 pg (27-33); Mean Corpuscular Volume 92.6 fl (85-98); Platelet Count 163 10^3/cmm (157-399); Red Blood Count 3.09 10^6/uL (3.85-5.65); White Blood Count 8.71 10^3/uL (3.29-11.43)
[2025-02-01 10:00] VITALS: BP 107/75; PULSE 68; TEMP 36.6
--- NOTE | 2025-02-01 11:50 | PM.OBGYPN ---
SENIOR CONSUMER INSIGHTS CONSULTANT Subjective Subjective: Interval history: no c/o no headaches, dizziness, nausea, abdominal pain, bleeding normal lochia eating, voiding, ambulating well Labor: Station: +1 Monitor Mode: External Contraction Pattern: Irregular Vitals/I&O/Wt Last Vital Signs Temp 98.2 F 02/01/25 20:40 Pulse 80 02/01/25 20:40 Resp 16 02/01/25 20:40 BP 127/85 02/01/25 20:40 Pulse Ox 98 02/01/25 20:40 O2 Del Method Room Air 02/01/25 20:40 Weight last 48 hrs Weight 243 lb Physical Exam Narrative: afebrile, VS normal comfortable, awake, alert Abd: soft, nontender. fundus firm Ext: no edema; nontender Urinary Catheter Management: Mills: Cath Placed During This Visit: yes, but has since been removed by the nurse Reason for Continuing Indwelling Catheter: Decision to DC Catheter Urinary Catheter Date of Insertion: 01/31/25 Urinary Catheter Time of Insertion: 16:15 Date Urinary Catheter Removed: 01/31/25 Time Urinary Catheter Discontinued: 19:15 Data 02/01/25 09:10 A&P Assessment and plan 1. Vaginal delivery: PPD #1 doing well normal course continue care PDMP PDMP Reviewed: Not Reviewed Attestations Medical Necessity Statement*: patient s/p vaginal delivery, for care Coding Level of Care Code Acute Code for Chg Fwd Diagnoses Vaginal delivery O80
--- NOTE | 2025-02-01 14:06 | ANE.PACU2 ---
Inpatient post-anesthesia follow up: Airway intact: Yes Vital signs: Temperature 98 F Pulse Rate 76 Respiratory Rate 15 Blood Pressure 125/77 Pulse Oximetry 98 Oxygen Delivery Me thod Room Air Oxygen Flow Rate Fraction of Inspir ed Oxygen Hydration adequate: Yes Nausea and vomiting: No Pain level: 1 Mental status: Baseline Epidural Start/End: Epidural Start Date: 01/31/25 Epidural Start Time: 14:40 Epidural End Date: 02/01/25 Epidural End Time: 01:00
[2025-02-01 20:40] VITALS: BP 127/85; PULSE 80; RESP 16; TEMP 36.8; O2SAT 98
[2025-02-02] MEDS: PRENATAL VIT NO.130/IRON/FOLIC 1 EACH TABLET PO (06:18)
[2025-02-02 06:20] VITALS: BP 123/79; PULSE 74; RESP 16; TEMP 36.8; O2SAT 97
[2025-02-02 11:30] VITALS: BP 125/93; PULSE 71; RESP 16
--- NOTE | 2025-02-02 12:50 | PM.OBGYDC ---
Discharge Providers FIRE EXTINGUISHER CHARGER Date of Admission: 01/31/25 09:54 Date of Discharge: 02/02/25 Attending Provider at Admission: Bret Rios MD Attending Provider at Discharge: Bret Rios MD Consults: none Primary FIRE EXTINGUISHER CHARGER: Bret Rios MD Primary Care Provider: Bret Rios MD Diagnoses at Discharge Discharge Diagnosis 1. Vaginal delivery: Details from hospital stay: 29 y.o. at 39 w 2 d admitted for elective induction of labor patient was given pitocin per protocol patient progressed to complete dilatation fetus was reassuring throughout patient delivered vaginally without any complications; there were no episiotomy or lacerations She did well and was discharged to home on the second day Reason for Visit Reason for Visit: IOL Brief History: 29 y.o. at 39 w 2 d admitted for elective induction of labor Hospital Course Hospital Course 29 y.o. at 39 w 2 d admitted for elective induction of labor patient was given pitocin per protocol patient progressed to complete dilatation fetus was reassuring throughout patient delivered vaginally without any complications; there were no episiotomy or lacerations She did well and was discharged to home on the second day Information Peripartum Data: Infant Delivery Method: Vaginal Laceration description: None Episiotomy description: None complications: none Physical Exam Narrative: afebrile, VS normal comfortable, awake, alert Lungs: clear Cor: RRR Abd: soft, nontender. fundus firm Ext: no edema; nontender Urinary Catheter Management: Mills: Cath Placed During This Visit: yes, but has since been removed by the nurse Reason for Continuing Indwelling Catheter: Decision to DC Catheter Urinary Catheter Date of Insertion: 01/31/25 Urinary Catheter Time of Insertion: 16:15 Date Urinary Catheter Removed: 01/31/25 Time Urinary Catheter Discontinued: 19:15 History History History 3 Term 3 0 Miscarriages/Ectopic 0 Living Children 3 Past Pregnancies Del. Date GA/Weeks Outcome Route Wt Inf Gender Labor Lgth Comp. Anesthesia Location 10/04/16 38 live - full term Vaginal 8 lb 2 oz Male [facility] Dr. Castañeda 03/03/22 37 live - Vaginal 8 lb 3 oz Male Other [facility] Dr. Campo 01/31/25 39 live - full term Vaginal 6 lb 10 oz Male [facility] Dr. Rios Delivery Date: 10/04/16 Last Updated by: Ariel Aguilar CNA gestational diabetes Delivery Date: 03/03/22 Last Updated by: Ariel Aguilar CNA spontaneous rupture of membranes Discharge Data Studies Completed and Pending Laboratory Results WBC 8.71 10^3/uL (3.29-11.43) 02/01/25 09:10 RBC 3.09 10^6/uL (3.85-5.65) L 02/01/25 09:10 Hgb 9.30 g/dL (11.27-16.99) L 02/01/25 09:10 Hct 28.6 % (36-47) L 02/01/25 09:10 MCV 92.6 fl (85-98) 02/01/25 09:10 MCH 30.1 pg (27-33) 02/01/25 09:10 MCHC 32.5 g/dL (30-55) 02/01/25 09:10 RDW 13.3 % (12.1-15.1) 02/01/25 09:10 Plt Count 163 10^3/cmm (157-399) 02/01/25 09:10 MPV 10.0 fL (7.4-10.4) 02/01/25 09:10 Neut % (Auto) 62.0 % 01/31/25 07:24 Lymph % (Auto) 28.7 % 01/31/25 07:24 Sequoyah % (Auto) 7.1 % 01/31/25 07:24 Eos % (Auto) 1.6 % 01/31/25 07:24 Baso % (Auto) 0.4 % 01/31/25 07:24 Neut # (Auto) 3.51 10^3/uL (1.8-7.7) 01/31/25 07:24 Lymph # (Auto) 1.6 10^3/uL (0.8-4.8) 01/31/25 07:24 Sequoyah # (Auto) 0.4 10^3/uL (0.2-0.9) 01/31/25 07:24 Eos # (Auto) 0.1 10^3/uL (0.0-0.8) 01/31/25 07:24 Baso # (Auto) 0.0 10^3/uL (0.0-0.1) 01/31/25 07:24 Nucleated RBC % (auto) 0 % 01/31/25 07:24 Nucleated RBCs # 0.0 /100WBC 01/31/25 07:24 Blood Type O Positive 01/31/25 07:24 Rho(D) Type Rh positive 01/31/25 07:24 Antibody Screen Negative 01/31/25 07:24 Procedures Performed induction of labor vaginal delivery Vitals Last Vital Signs Temp 98 F 02/02/25 13:00 Pulse 76 02/02/25 13:00 Resp 15 02/02/25 13:00 BP 125/77 02/02/25 13:00 Pulse Ox 98 02/02/25 13:00 O2 Del Method Room Air 02/02/25 06:20 Results Labs OB ([facility]): Obstetrics US 12/29/24 Obstetrics US/Biophysical Profile 01/11/25 Blood Type O Positive 01/31/25 Antibody Screen Negative 01/31/25 Hct, (36-47) 29.7 % L 02/03/25 Hgb, (11.27-16.99) 9.80 g/dL L 02/03/25 Rho(D) Type Rh positive 01/31/25 Plt Count, (157-399) 202 10^3/cmm 02/03/25 Hep Bs Antigen, (Nonreactive) Non-reactive 07/21/24 Hepatitis C Antibody, (Nonreactive) Non-reactive 07/21/24 Rubella IgG Antibody, (0.0-10.0) 51.9 IU/mL H 07/21/24 RPR, (Nonreactive) Nonreactive 07/21/24 HIV 1&2 Ab & HIV 1 Ag, (Non-Reactiv) Non-reactive 07/21/24 TSH, (0.27-4.20) 0.47 uIU/mL 07/21/24 Glucose 1 Hr 50 gm, (85-140) 112 mg/dL 11/18/24 Ser , Semi-Qnt 05017.00 mIU/mL 06/18/24 HCG, Qual, (Negative) Positive H 10/20/24 Urine Opiates Screen, (Negative) Negative ng/mL 07/21/24 Ur Barbiturates Screen, (Negative) Negative ng/mL 07/21/24 Ur Phencyclidine Scrn, (Negative) Negative ng/mL 07/21/24 Ur Amphetamines Screen, (Negative) Negative ng/mL 07/21/24 U Benzodiazepines Scrn, (Negative) Negative ng/mL 07/21/24 Urine Cocaine Screen, (Negative) Negative ng/mL 07/21/24 U Marijuana (THC) Screen, (Negative) Positive ng/mL H 07/21/24 Micro Urine Specimen 12/13/24 Pap Smear Interpret See note 08/10/24 Discharge Plan Discharge Patient Disposition: Home Prescriptions: No Action ondansetron 4 mg tablet,disintegrating 4 mg PO Q6H PRN (Reason: nausea and vomiting) Qty: 30 2RF -U 106.5-1 mg capsule 1 cap PO DAILY Qty: 30 0RF Discharge Order = DC NOW: Discharge Order (Routine); Ordered 02/02/25 Ordered By: Bret Rios Referrals: Opal Harper NP [Nurse Practitioner, FIRE EXTINGUISHER CHARGER] - 03/17/25 10:45 am Discharge Diet: Usual diet Discharge Activity: Resume usual activity Patient Instructions: Depression (DC), Opioid Safety (DC), Preeclampsia and Eclampsia After Delivery (GEN), Hemorrhage (DC), OB Discharge Report, OB Food/Drug Interaction Guide, Opioid Safety, OB Home Care, OB Vaginal Deliveries - [facility], Patient Portal & Colleen Instructions, Abnormal Bleeding Discharge Attestations FIRE EXTINGUISHER CHARGER Time Spent in Discharge Care*: less than 30 min Coding Level of Care Code Acute Code for Chg Fwd Diagnoses Vaginal delivery O80
[2025-02-02 13:00] VITALS: BP 125/77; PULSE 76; RESP 15; TEMP 36.6; O2SAT 98
== END 2025-02-02 13:10 | disposition home or self-care (01) | DRG 560 ==
LOC: OPOB 09:54 → OBGYN 09:54
PROVIDERS: Admitting Provider Obstetrics & Gynecology; PCP Obstetrics & Gynecology; Visit Provider Obstetrics & Gynecology
DX: O77.0 Labor and delivery complicated by meconium in amniotic fluid (principal); O69.81X0 Labor and delivery complicated by cord around neck, without compression, not applicable or unspecified; Z3A.39 39 weeks gestation of pregnancy; Z37.0 Single live birth
CPT/HCPCS: 36415; 51702; 59409; 85025; 85027; 86850; 86900; J2405; J2590; J2765; J2795; J3010; J7030; J7121; J9999

== ENCOUNTER 2025-02-03 13:02 | Emergency (ER) | payer MEDICAID, SELFPAY ==
[2024-10-27 10:40] VITALS: BP 116/78; BMI 39.4
[2025-02-03 13:22] VITALS: BP 110/68; PULSE 86; RESP 16; TEMP 37.1; O2SAT 97; BMI 37.0
--- NOTE | 2025-02-03 13:41 | ED_ITS ---
HPI - 2 General: Chief complaint: Vaginal Bleeding Stated complaint: Abnormal bleeding gave 3days ago Time Seen by Provider: 02/03/25 13:41 History of Present Illness: 29-year-old female presents emergency ro om 3 days from normal vaginal delivery at term (39 weeks 2 days. Patient did have meconium stained fluid. Reported 300 cc blood loss according to the delivery note there was no difficulty with delivery of the placenta. Associated symptoms: Deny abdominal pain or dysuria Related Data Previous Rx's ?Medication ?Instructions ?Recorded multivitamin no.51-ferrous 1 cap PO DAILY #30 caps 03/14 fumarate 106.5 mg-folic acid 1 mg capsule (-U) ondansetron 4 mg disintegrating 4 mg PO Q6H PRN nausea and 01/18/25 tablet vomiting #30 tabs Allergies Allergy/AdvReac Type Severity Reaction Status Date / Time No Known Allergies Allergy Verified 02/03/25 13:28 Review of Systems 2 Const: Denies: fever(s) or chills Card: Denies: chest pain Resp: Denies: dyspnea GI: Denies: abdominal pain : Reports: vaginal bleeding; Denies: dysuria, urinary frequency or urinary urgency Musc: Denies: neck pain or back pain Skin/Breast: Denies: rash PFSH ED 2 PFSH: Medical History PROM (premature rupture of membranes) SUE (generalized anxiety disorder) Vapes nicotine containing substance Caffeine dependence Affective disorder Cannabis use disorder Nicotine use disorder Bipolar 2 disorder On combination antipsychotic drug therapy Psychiatric care Anxiety Depression Gestational diabetes URI (upper respiratory infection) Pharyngitis No significant past medical history Family History Denies family history of Colon cancer Ovarian cancer Diabetes Heart disease Hyperlipidemia Breast cancer Uterine cancer Thyroid disease Stroke Social History Smoking and tobacco/nicotine status: former use of tobacco/nicotine Alcohol intake: never Substance/Drug Use: never Adopted: No Caregiver/support person: No Lives independently: No Household members: spouse and children Housing: House Marital status: Number of children: 2 Highest education level completed: High School Graduate service: No Current occupational status: unemployed Pets and animals: No Leisure activites: other 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 Do you think of yourself as: Bisexual Current gender identity: Female Kate/Yazidism: Jainism Special kate needs: No Agree to transfusion: Yes Female Reproductive History: Spontaneous abortions: No Physical Exam 2 Const: GENERAL APPEARANCE: cooperative ORIENTATION/CONSCIOUSNESS: Yes awake, Yes oriented to person, Yes oriented to place and Yes oriented to time HENMT: COMMON NORMALS: normocephalic, atraumatic and hearing grossly normal bilaterally HEAD & SCALP: normocephalic and atraumatic Resp: COMMON NORMALS: normal respiratory effort, No retractions, No use of accessory muscles and clear to auscultation bilaterally AUSCULTATION: clear to auscultation bilaterally Cardio: COMMON NORMALS: regular rate, regular rhythm and No murmurs present (Cardio) RATE: regular rate RHYTHM: regular rhythm GI: COMMON NORMALS: Soft to palpation and No hepatosplenomegaly present A USCULTATION: Yes normoactive bowel sounds PALPATION: Yes Soft to palpation, No Tenderness to palpation present (GI), No Guarding due to palpation present (GI) and Yes No hepatosplenomegaly present Extremity: COMMON NORMALS: normal to inspection, capillary refill normal, no clubbing, cyanosis or edema, no calf tenderness and no pedal edema Neuro: SENSORIUM/ORIENTATION: Yes oriented to person, Yes oriented to place and Yes oriented to time Skin: COMMON NORMALS: no rashes or lesions noted GENERAL SKIN EXAM: no rashes or lesions noted Course 2 Vital Signs: Vital signs: Vital Signs Temperature 98.7 F 02/03/25 13:22 Pulse Rate 86 02/03/25 13:22 Respiratory Rate 16 02/03/25 13:22 Blood Pressure 110/68 02/03/25 13:22 Pulse Oximetry 97 02/03/25 13:22 Oxygen Delivery Me thod Room Air 02/03/25 13:22 MDM - OB/Uterine Contractions Medical Decision Making Medical decision making Social determinants: None I reviewed the patient's medical record. I reviewed the patient's current home meds. Alternate historians: None Differential diagnosis: vaginal bleeding Lab Review: [place] [id number] white count normal Imaging: None Assessment of risk Level of risk: Low Hospitalization considerations: No indication for hospitalization Assessment and plan: Reviewed findings with Dr. Rios. Patient still is having some bleeding. She is not have any cramping discomfort as uterus is not palpable above the pubic bone suspect some this may be due to body habitus. Dr. Rios recommends a single shot of Methergine discharge home and he will see tomorrow. Since patient is still reporting bleeding but not having cramping he did not think a pelvic exam would be particularly helpful. Since she is only 3 days pelvic ultrasound would likely show not to be conclusive. Lab Data 02/03/25 13:46 02/03/25 13:46 Laboratory Results WBC 9.78 10^3/uL (3.29-11.43) 02/03/25 13:46 RBC 3.25 10^6/uL (3.85-5.65) L 02/03/25 13:46 Hgb 9.80 g/dL (11.27-16.99) L 02/03/25 13:46 Hct 29.7 % (36-47) L 02/03/25 13:46 MCV 91.4 fl (85-98) 02/03/25 13:46 MCH 30.2 pg (27-33) 02/03/25 13:46 MCHC 33.0 g/dL (30-55) 02/03/25 13:46 RDW 13.3 % (12.1-15.1) 02/03/25 13:46 Plt Count 202 10^3/cmm (157-399) 02/03/25 13:46 MPV 9.6 fL (7.4-10.4) 02/03/25 13:46 Neut % (Auto) 79.0 % 02/03/25 13:46 Lymph % (Auto) 14.4 % 02/03/25 13:46 [place] % (Auto) 4.6 % 02/03/25 13:46 Eos % (Auto) 1.6 % 02/03/25 13:46 Baso % (Auto) 0.2 % 02/03/25 13:46 Neut # (Auto) 7.72 10^3/uL (1.8-7.7) H 02/03/25 13:46 Lymph # (Auto) 1.4 10^3/uL (0.8-4.8) 02/03/25 13:46 [place] # (Auto) 0.5 10^3/uL (0.2-0.9) 02/03/25 13:46 Eos # (Auto) 0.2 10^3/uL (0.0-0.8) 02/03/25 13:46 Baso # (Auto) 0.0 10^3/uL (0.0-0.1) 02/03/25 13:46 Nucleated RBC % (auto) 0 % 02/03/25 13:46 Nucleated RBCs # 0.0 /100WBC 02/03/25 13:46 No radiology studies performed this visit Discharge Plan Discharge Patient Disposition: Home Clinical Impression: Vaginal bleeding, anemia Condition: Stable Prescriptions: No Action ondansetron 4 mg tablet,disintegrating 4 mg PO Q6H PRN (Reason: nausea and vomiting) Qty: 30 2RF -U 106.5-1 mg capsule 1 cap PO DAILY Qty: 30 0RF Discharge Orders: Discharge ED (Routine); Ordered 02/03/25 Ordered By: Luis Ramirez Referrals: Bert Rios MD [Primary Care Provider, PELLET PREPARATION OPERATOR] Discharge Diet: Usual diet Discharge Activity: Increase activity as tolerated Patient Instructions: Opioid Safety, Pain Management, Patient Portal & Colleen Instructions Activity Restrictions/Additional Instructions: [facility]. It is very important that you follow up as instructed or that you return to the Emergency Department should you have concerns or if your condition changes or worsens in any way. Emergency department visits are focused on emergent conditions, in some cases you may require further evaluation on an outpatient basis. You were seen in the emergency room 3 days . You reported passing blood and some clots. The picture you showed appeared to be potentially some membranes that was not clear that was a portion of placenta. I discussed with the delivering physician he felt the placenta was fully intact at the time of delivery. They recommend a single shot of Methergine and they will see you in the office tomorrow. You are given that intramuscular shot of Methergine prior to discharge. Contact Dr. Rios's office and they are planning to see you tomorrow. (Please note that included in your discharge packet is information concerning opioid safety and pain management. This information is given to all patients were discharged from the ER regardless of their discharge diagnosis or the medicines they usually take or are prescribed.) Print Language: [place] Coding Level of Care Code ED Tower Watchman for Brett Soto
[2025-02-03 13:55] LABS: Hematocrit 29.7 % (36-47); Hemoglobin 9.80 g/dL (11.27-16.99); Mean Corpuscular HGB Conc 33.0 g/dL (30-55); Mean Corpuscular Hemoglobin 30.2 pg (27-33); Mean Corpuscular Volume 91.4 fl (85-98); Nucleated Red Blood Cells % 0 %; Platelet Count 202 10^3/cmm (157-399); Red Blood Count 3.25 10^6/uL (3.85-5.65); White Blood Count 9.78 10^3/uL (3.29-11.43)
[2025-02-03 14:15] LABS: INR 0.88 (0.8-1.2); Prothrombin Time 12.60 SECONDS (12.1-14.9)
[2025-02-03] MEDS: methylergonovine 0.2 mg/mL INJ 1 mL IM (14:17)
[2025-02-03 14:18] VITALS: BP 116/85; PULSE 95; O2SAT 97
[2025-02-03 14:19] LABS: Alanine Aminotransferase 11 U/L (0-33); Albumin Level 3.4 g/dL (3.5-5.2); Alkaline Phosphatase 94 U/L (35-105); Anion Gap 15.7 (5-19); Aspartate Amino Transferase 19 U/L (0-32); Blood Urea Nitrogen 8 mg/dL (6-20); Calcium 8.4 mg/dL (8.5-10.5); Carbon Dioxide 20 mmol/L (22-29); Chloride 109 mmol/L (98-107); Globulin 2.9 g/dL (1.3-4.6); Glucose 83 mg/dL (65-115); Osmolality Calculated 289 mOsm/kg (285-295); Potassium 3.7 mmol/L (3.5-5.1); Sodium 141 mmol/L (136-145); Total Protein 6.3 g/dL (6.6-8.7)
== END 2025-02-03 14:26 | disposition home or self-care (01) ==
PROVIDERS: Physician Assistant; Emergency Provider Family Medicine; PCP Obstetrics & Gynecology
DX: O90.81 Anemia of the puerperium (principal); O72.1 Other immediate postpartum hemorrhage; Z87.891 Personal history of nicotine dependence
CPT/HCPCS: 36415; 80053; 85025; 85610; 96372; 99284; J2210